=== PATIENT | female | born 1950 | race Caucasian/White ===

== ENCOUNTER 2016-10-12 12:30 | Outpatient (CLI) | payer MEDICARE, OTHER | END 2016-10-12 12:31 | disposition home or self-care (01) | DX: I48.91 Unspecified atrial fibrillation (principal); Z79.01 Long term (current) use of anticoagulants ==

== ENCOUNTER 2016-10-21 10:34 | Outpatient (CLI) | payer MEDICARE, OTHER | END 2016-10-21 10:35 | disposition home or self-care (01) | DX: I48.91 Unspecified atrial fibrillation (principal); Z79.01 Long term (current) use of anticoagulants ==

== ENCOUNTER 2016-10-29 08:57 | Outpatient (CLI) | payer MEDICARE, OTHER | END 2016-10-29 08:58 | disposition home or self-care (01) | DX: I48.91 Unspecified atrial fibrillation (principal); Z79.01 Long term (current) use of anticoagulants ==

== ENCOUNTER 2016-11-04 14:49 | Outpatient (CLI) | payer MEDICARE, OTHER | END 2016-11-04 14:50 | disposition home or self-care (01) | DX: I48.91 Unspecified atrial fibrillation (principal); Z79.01 Long term (current) use of anticoagulants ==

== ENCOUNTER 2016-12-02 10:37 | Outpatient (CLI) | payer MEDICARE, OTHER | END 2016-12-02 10:38 | disposition home or self-care (01) | DX: I48.91 Unspecified atrial fibrillation (principal); Z79.01 Long term (current) use of anticoagulants ==

== ENCOUNTER 2016-12-21 08:38 | Outpatient (CLI) | payer MEDICARE, OTHER | END 2016-12-21 08:39 | disposition home or self-care (01) | DX: E11.9 Type 2 diabetes mellitus without complications (principal); Z79.899 Other long term (current) drug therapy; E55.9 Vitamin D deficiency, unspecified ==

== ENCOUNTER 2016-12-30 13:17 | Outpatient (CLI) | payer MEDICARE, OTHER | END 2016-12-30 13:18 | disposition home or self-care (01) | DX: I48.91 Unspecified atrial fibrillation (principal); Z79.01 Long term (current) use of anticoagulants ==

== ENCOUNTER 2017-02-01 10:57 | Outpatient (CLI) | payer MEDICARE, OTHER | END 2017-02-01 10:58 | disposition home or self-care (01) | LOC: LAB 10:57 | PROVIDERS: ATTEND Internal Medicine | DX: I48.91 Unspecified atrial fibrillation (principal); Z79.01 Long term (current) use of anticoagulants | CPT/HCPCS: 85610 ==

== ENCOUNTER 2017-02-14 11:21 | Outpatient (CLI) | payer MEDICARE, OTHER | END 2017-02-14 11:22 | disposition home or self-care (01) | LOC: LAB 11:21 | PROVIDERS: ATTEND Internal Medicine | DX: I48.91 Unspecified atrial fibrillation (principal); Z79.01 Long term (current) use of anticoagulants | CPT/HCPCS: 85610 ==

== ENCOUNTER 2017-03-14 14:30 | Outpatient (CLI) | payer MEDICARE, OTHER | END 2017-03-14 14:31 | disposition home or self-care (01) | LOC: LAB 14:30 | PROVIDERS: ATTEND Internal Medicine | DX: I48.91 Unspecified atrial fibrillation (principal) | CPT/HCPCS: 85610 ==

== ENCOUNTER 2017-04-14 12:39 | Outpatient (CLI) | payer MEDICARE, OTHER | END 2017-04-14 12:40 | disposition home or self-care (01) | LOC: LAB 12:39 | PROVIDERS: ATTEND Internal Medicine | DX: I48.91 Unspecified atrial fibrillation (principal); Z79.01 Long term (current) use of anticoagulants | CPT/HCPCS: 85610 ==

== ENCOUNTER 2017-05-24 10:59 | Outpatient (CLI) | payer MEDICARE, OTHER | END 2017-05-24 11:00 | disposition home or self-care (01) | LOC: LAB 10:59 | PROVIDERS: ATTEND Internal Medicine | DX: I48.91 Unspecified atrial fibrillation (principal); Z79.01 Long term (current) use of anticoagulants | CPT/HCPCS: 85610 ==

== ENCOUNTER 2017-06-20 09:00 | Outpatient (CLI) | payer MEDICARE, OTHER ==
[2017-06-20 09:23] LABS: BASOPHILS # (AUTO) 0.1 10^3/uL (0.0-0.1); EOSINOPHILS # (AUTO) 0.2 10^3/uL (0.0-0.7); EOSINOPHILS % (AUTO) 2.5 %; HCT - HEMATOCRIT 42.9 % (37.0-47.0); LYMPHOCYTES # (AUTO) 2.7 10^3/uL (1.5-3.5); LYMPHOCYTES % (AUTO) 32.8 %; MEAN CORPUSCULAR HEMOGLOBIN 29.5 pg (27.0-31.0); MEAN CORPUSCULAR HGB CONC 32.6 g/dL (32.0-36.0); MEAN CORPUSCULAR VOLUME 90.6 fL (81.0-99.0); MEAN PLATELET VOLUME 8.7 fL (7.9-10.8); MONOCYTES # (AUTO) 0.7 10^3/uL (0.0-1.0); NEUTROPHILS # (AUTO) 4.5 10^3/uL (1.5-6.6); NEUTROPHILS % (AUTO) 54.7 %; RED BLOOD COUNT 4.73 10^6/uL (4.20-5.40); RED CELL DISTRIBUTION WIDTH 13.5 % (12.0-15.0); UNCORRECTED WHITE BLOOD COUNT 8.2 x10^3/uL; WHITE BLOOD COUNT 8.2 x10^3/uL (4.8-10.8)
[2017-06-20 09:32] LABS: INR 2.6 (0.8-1.2); PT - PROTHROMBIN TIME 29.1 secs (9.9-12.6)
[2017-06-20 09:39] LABS: HEMOGLOBIN A1C 0.91 g/dL
[2017-06-20 09:40] LABS: ALBUMIN/GLOBULIN RATIO 1.2 (1.0-2.2); BILIRUBIN,TOTAL 0.8 mg/dL (0.2-1.0); BUN - BLOOD UREA NITROGEN 19 mg/dL (6-20); CALCIUM 9.1 mg/dL (8.5-10.3); CARBON DIOXIDE - CO2 26 mmol/L (21-32); CHLORIDE 102 mmol/L (101-111); CHOL/HDL RATIO 2.3 (<4.4); CHOLESTEROL 154 mg/dL; CREATININE 0.7 mg/dL (0.4-1.0); GFR - MDRD 84 (>89); GLUCOSE 167 mg/dL (70-100); HDL CHOLESTEROL 67 mg/dL; LDL/HDL RATIO 1.1 (<4.4); POTASSIUM 4.3 mmol/L (3.5-5.0); SODIUM 138 mmol/L (135-145); TRIGLYCERIDES 81 mg/dL; VLDL CHOLESTEROL 16 mg/dL
== END 2017-06-20 09:01 | disposition home or self-care (01) ==
LOC: LAB 09:00
PROVIDERS: ATTEND Physician Assistant Medical
DX: I48.91 Unspecified atrial fibrillation (principal); E11.9 Type 2 diabetes mellitus without complications; I10 Essential (primary) hypertension; Z79.899 Other long term (current) drug therapy; Z79.01 Long term (current) use of anticoagulants
CPT/HCPCS: 36415; 80053; 80061; 83036; 84443; 85025; 85610

== ENCOUNTER 2017-10-20 10:16 | Outpatient (CLI) | payer MEDICARE, OTHER | END 2017-10-20 10:17 | disposition home or self-care (01) | LOC: LAB 10:16 | PROVIDERS: ATTEND Internal Medicine | DX: I48.91 Unspecified atrial fibrillation (principal); Z79.01 Long term (current) use of anticoagulants | CPT/HCPCS: 85610 ==

== ENCOUNTER 2017-12-19 10:49 | Outpatient (CLI) | payer MEDICARE, OTHER | END 2017-12-19 10:50 | disposition home or self-care (01) | LOC: LAB 10:49 | PROVIDERS: ATTEND Internal Medicine | DX: I48.91 Unspecified atrial fibrillation (principal); Z79.01 Long term (current) use of anticoagulants | CPT/HCPCS: 85610 ==

== ENCOUNTER 2018-01-18 12:18 | Outpatient (CLI) | payer MEDICARE, OTHER | END 2018-01-18 12:19 | disposition home or self-care (01) | LOC: LAB 12:18 | PROVIDERS: ATTEND Internal Medicine | DX: I48.91 Unspecified atrial fibrillation (principal); Z79.01 Long term (current) use of anticoagulants | CPT/HCPCS: 85610 ==

== ENCOUNTER 2018-02-02 14:32 | Outpatient (CLI) | payer MEDICARE, OTHER | END 2018-02-02 14:33 | disposition home or self-care (01) | LOC: LAB 14:32 | PROVIDERS: ATTEND Internal Medicine | DX: I48.91 Unspecified atrial fibrillation (principal); Z79.01 Long term (current) use of anticoagulants | CPT/HCPCS: 85610 ==

== ENCOUNTER 2018-03-01 08:54 | Outpatient (CLI) | payer MEDICARE, OTHER ==
[2018-03-01 09:22] LABS: INR 2.6 (0.8-1.2); PT - PROTHROMBIN TIME 28.5 secs (9.9-12.6)
[2018-03-01 09:38] LABS: HB2 TOTAL 15.5 g/dL; HEMOGLOBIN A1C 0.83 g/dL; HEMOGLOBIN A1C % 7.1 % (4.6-6.2)
== END 2018-03-01 08:55 | disposition home or self-care (01) ==
LOC: LAB 08:54
PROVIDERS: ATTEND Internal Medicine
DX: E11.9 Type 2 diabetes mellitus without complications (principal); I48.91 Unspecified atrial fibrillation; Z79.899 Other long term (current) drug therapy; Z79.01 Long term (current) use of anticoagulants
CPT/HCPCS: 36415; 82947; 83036; 85610

== ENCOUNTER 2018-04-03 10:03 | Outpatient (CLI) | payer MEDICARE, OTHER | END 2018-04-03 10:04 | disposition home or self-care (01) | LOC: LAB 10:03 | PROVIDERS: ATTEND Internal Medicine | DX: I48.91 Unspecified atrial fibrillation (principal); Z79.01 Long term (current) use of anticoagulants | CPT/HCPCS: 85610 ==

== ENCOUNTER 2018-04-11 09:07 | Outpatient (CLI) | payer MEDICARE, OTHER ==
--- NOTE | 2018-04-13 14:01 | Mammography Report ---
Procedure Date: 04/11/2018 Accession Number: [id number] / [id number] Procedure: MGN - Screening Mammo Dig Bilat CPT Code: FULL RESULT: EXAM: Screening Mammo Dig Bilat DATE: 04/11/2018 9:33 AM CLINICAL HISTORY: 67-year-old female with history of late childbearing. TECHNIQUE: Bilateral CC and MLO views were obtained. Left and right XCCL view was also obtained. COMPARISON: 03/22/2016, 02/19/2014, 02/23/2011, 08/06/2008. FINDINGS: The breasts demonstrate diffuse fatty replacement bilaterally. No suspicious masses, clustered microcalcifications, or regions of architectural distortion are identified. IMPRESSION: Negative examination RECOMMENDATION: Routine annual screening unless otherwise clinically indicated. BIRADS CATEGORY 1: Negative STANDARD QUALIFYING STATEMENTS: 1. This examination was reviewed with the aid of Computer-Aided Detection (CAD). 2. A negative or benign imaging report should not delay biopsy if clinically suspicious findings are present. Consider surgical consultation if warrented. More than 5% of cancers are not identified by imaging. 3. Dense breasts may obscure an underlying neoplasm.
== END 2018-04-11 09:08 | disposition home or self-care (01) ==
LOC: DI.N 09:07
PROVIDERS: ATTEND Physician Assistant Medical
DX: Z12.31 Encounter for screening mammogram for malignant neoplasm of breast (principal)
CPT/HCPCS: 77067

== ENCOUNTER 2018-05-04 10:18 | Outpatient (CLI) | payer MEDICARE, OTHER | END 2018-05-04 10:19 | disposition home or self-care (01) | LOC: LAB 10:18 | PROVIDERS: ATTEND Internal Medicine | DX: I48.91 Unspecified atrial fibrillation (principal); Z79.01 Long term (current) use of anticoagulants | CPT/HCPCS: 85610 ==

== ENCOUNTER 2018-05-29 11:57 | Outpatient (CLI) | payer MEDICARE, OTHER | END 2018-05-29 11:58 | disposition home or self-care (01) | LOC: LAB 11:57 | PROVIDERS: ATTEND Internal Medicine | DX: I48.91 Unspecified atrial fibrillation (principal); Z79.01 Long term (current) use of anticoagulants | CPT/HCPCS: 85610 ==

== ENCOUNTER 2018-06-20 09:23 | Outpatient (CLI) | payer MEDICARE, OTHER ==
[2018-06-20 09:55] LABS: BASOPHILS # (AUTO) 0.1 10^3/uL (0.0-0.1); BASOPHILS % (AUTO) 1.1 %; EOSINOPHILS # (AUTO) 0.2 10^3/uL (0.0-0.7); EOSINOPHILS % (AUTO) 2.9 %; HGB - HEMOGLOBIN 14.1 g/dL (12.0-16.0); LYMPHOCYTES # (AUTO) 1.9 10^3/uL (1.5-3.5); LYMPHOCYTES % (AUTO) 28.9 %; MEAN CORPUSCULAR HEMOGLOBIN 30.5 pg (27.0-31.0); MEAN CORPUSCULAR HGB CONC 33.5 g/dL (32.0-36.0); MEAN CORPUSCULAR VOLUME 91.1 fL (81.0-99.0); MEAN PLATELET VOLUME 8.7 fL (7.9-10.8); MONOCYTES # (AUTO) 0.7 10^3/uL (0.0-1.0); MONOCYTES % (AUTO) 9.7 %; NEUTROPHILS # (AUTO) 3.9 10^3/uL (1.5-6.6); NEUTROPHILS % (AUTO) 57.4 %; PLT - PLATELET COUNT 247 10^3/uL (130-450); RED BLOOD COUNT 4.64 10^6/uL (4.20-5.40); WHITE BLOOD COUNT 6.7 x10^3/uL (4.8-10.8)
[2018-06-20 11:38] LABS: HEMOGLOBIN A1C 0.82 g/dL; HEMOGLOBIN A1C % 7.2 % (4.6-6.2)
[2018-06-20 11:41] LABS: ALBUMIN 3.4 g/dL (3.2-5.5); ALKALINE PHOSPHATASE 61 IU/L (42-121); ALT ALANINE AMINOTRANSFERASE 23 IU/L (10-60); AST ASPARTATE AMINOTRANSFERASE 20 IU/L (10-42); BILIRUBIN,TOTAL 0.9 mg/dL (0.2-1.0); BUN - BLOOD UREA NITROGEN 15 mg/dL (6-20); CARBON DIOXIDE - CO2 28 mmol/L (21-32); CHLORIDE 102 mmol/L (101-111); CHOL/HDL RATIO 2.4 (<4.4); CHOLESTEROL 165 mg/dL; CREATININE 0.8 mg/dL (0.4-1.0); GFR - MDRD 72 (>89); GLUCOSE 171 mg/dL (70-100); HDL CHOLESTEROL 69 mg/dL; LDL CHOLESTEROL,CALCULATED 77 mg/dL; LDL/HDL RATIO 1.1 (<4.4); SODIUM 138 mmol/L (135-145); TOTAL PROTEIN 6.8 g/dL (6.7-8.2); VLDL CHOLESTEROL 19 mg/dL
== END 2018-06-20 09:24 | disposition home or self-care (01) ==
LOC: LAB 09:23
PROVIDERS: ATTEND Physician Assistant Medical
DX: I10 Essential (primary) hypertension (principal); E11.9 Type 2 diabetes mellitus without complications; I48.91 Unspecified atrial fibrillation; E66.3 Overweight; Z79.899 Other long term (current) drug therapy
CPT/HCPCS: 36415; 80053; 80061; 83036; 83721; 84443; 85025

== ENCOUNTER 2018-06-27 12:20 | Outpatient (CLI) | payer MEDICARE, OTHER | END 2018-06-27 12:21 | disposition home or self-care (01) | LOC: LAB 12:20 | PROVIDERS: ATTEND Internal Medicine | DX: I48.91 Unspecified atrial fibrillation (principal); Z79.01 Long term (current) use of anticoagulants | CPT/HCPCS: 85610 ==

== ENCOUNTER 2018-09-15 10:09 | Outpatient (CLI) | payer MEDICARE, OTHER ==
--- NOTE | 2018-09-18 11:20 | DEXA Report ---
Reason: POSTMENOPAUSAL Procedure Date: 09/15/2018 Accession Number: [id number] / [id number] Procedure: DEX - Dexa Spine and/or Hip CPT Code: FULL RESULT: EXAM: Dexa Spine and/or Hip DATE: 09/15/2018 10:42 AM CLINICAL HISTORY: POSTMENOPAUSAL TECHNIQUE: Dual energy x-ray absorptiometry (DXA) was performed on a Oculeve System. Regions measured are the AP Spine, femoral neck, and if needed forearm. COMPARISON: None. In accordance with the International Society for Clinical Densitometry (ISCD) guidelines, data from previous exams may be reanalyzed using current recommendations and techniques. This is done to allow a more accurate basis for comparison with the current study. FINDINGS: The data for the lumbar spine is as follows: BMD (g/cm/cm) T-SCORE Z-SCORE REGION L1 1.536 3.4 3.9 L2 1.616 3.5 3.9 L3 1.611 3.4 3.9 L4 1.609 3.4 3.9 TOTAL 1.594 3.5 3.9 NOTE: All evaluable vertebrae are used for classification The data for the hip is as follows: BMD (g/cm/cm) T-SCORE Z-SCORE REGION Neck 1.075 0.3 1.1 TOTAL 1.141 1.1 1.6 NOTE: The femoral neck or total proximal femur, whichever is lowest, is used for classification. IMPRESSION: THE WHO CLASSIFICATION BASED ON THE INTERNATIONAL REFERENCE STANDARD IS NORMAL. THE FRACTURE RISK IS NOT INCREASED. RECOMMENDATION: Patients with diagnosis of osteoporosis or osteopenia should have regular bone mineral density assessment. For those eligible for Medicare, routine testing is allowed once every 2 years. Testing frequency can be increased for patients who have rapidly progressing disease or for those who are receiving medical therapy to restore bone mass. COMMENT: World Health Organization (WHO) definitions for osteoporosis and osteopenia: NORMAL BMD: T-score at -1.0 or higher, fracture risk is low OSTEOPENIA BMD: T-score between -1.0 and -2.5, fracture risk is increased. OSTEOPOROSIS BMD: T-score at -2.5 or lower, fracture risk is high. National Osteoporosis Foundation recommends: 1. Obtain adequate dietary calcium (at least 1200 mg per day) and vitamin D (400-800 international units per day). 2. Participate, as appropriate, in regular weightbearing and muscle-strengthening exercise. 3. Avoid tobacco use and reduce alcohol and caffeine intake. 4. For more detailed information see the website at www.NOF.org.
== END 2018-09-15 10:10 | disposition home or self-care (01) ==
LOC: DI 10:09
PROVIDERS: ATTEND Physician Assistant Medical
DX: Z78.0 Asymptomatic menopausal state (principal)
CPT/HCPCS: 77080

== ENCOUNTER 2018-12-22 11:59 | Outpatient (CLI) | payer MEDICARE, OTHER | END 2018-12-22 12:00 | disposition home or self-care (01) | LOC: LAB 11:59 | PROVIDERS: ATTEND Family Medicine | DX: I48.91 Unspecified atrial fibrillation (principal) | CPT/HCPCS: 85610 ==

== ENCOUNTER 2019-01-23 10:05 | Outpatient (CLI) | payer MEDICARE, OTHER | END 2019-01-23 10:06 | disposition home or self-care (01) | LOC: LAB 10:05 | PROVIDERS: ATTEND Family Medicine | DX: I48.91 Unspecified atrial fibrillation (principal) | CPT/HCPCS: 85610 ==

== ENCOUNTER 2019-03-01 11:09 | Outpatient (CLI) | payer MEDICARE, OTHER | END 2019-03-01 11:10 | disposition home or self-care (01) | LOC: LAB 11:09 | PROVIDERS: ATTEND Family Medicine | DX: I48.91 Unspecified atrial fibrillation (principal) | CPT/HCPCS: 85610 ==

== ENCOUNTER 2019-03-12 12:17 | Outpatient (CLI) | payer MEDICARE, OTHER ==
[2019-03-12 13:05] LABS: HB2 TOTAL 15.1 g/dL; HEMOGLOBIN A1C 1.19 g/dL; HEMOGLOBIN A1C % 9.4 % (4.6-6.2)
[2019-03-12 13:11] LABS: CALCIUM 9.1 mg/dL (8.5-10.3); CREATININE 0.9 mg/dL (0.4-1.0)
== END 2019-03-12 12:18 | disposition home or self-care (01) ==
LOC: LAB 12:17
PROVIDERS: ATTEND Nurse Practitioner
DX: E11.9 Type 2 diabetes mellitus without complications (principal)
CPT/HCPCS: 80048; 83036

== ENCOUNTER 2019-04-03 11:31 | Outpatient (CLI) | payer MEDICARE, OTHER | END 2019-04-03 11:32 | disposition home or self-care (01) | LOC: LAB 11:31 | PROVIDERS: ATTEND Family Medicine | DX: I48.91 Unspecified atrial fibrillation (principal) | CPT/HCPCS: 85610 ==

== ENCOUNTER 2019-05-03 12:55 | Outpatient (CLI) | payer MEDICARE, OTHER | END 2019-05-03 12:56 | disposition home or self-care (01) | LOC: LAB 12:55 | PROVIDERS: ATTEND Family Medicine | DX: I48.91 Unspecified atrial fibrillation (principal) | CPT/HCPCS: 85610 ==

== ENCOUNTER 2019-05-29 12:03 | Outpatient (CLI) | payer MEDICARE, OTHER | END 2019-05-29 12:04 | disposition home or self-care (01) | LOC: LAB 12:03 | PROVIDERS: ATTEND Family Medicine | DX: I48.91 Unspecified atrial fibrillation (principal) | CPT/HCPCS: 85610 ==

== ENCOUNTER 2019-06-25 08:46 | Outpatient (CLI) | payer MEDICARE, OTHER ==
[2019-06-25 09:18] LABS: CALCIUM 9.1 mg/dL (8.5-10.3); CREATININE 0.8 mg/dL (0.4-1.0)
[2019-06-25 09:34] LABS: CREATININE,URINE 182.5 mg/dL; MICROALBUM/CREATININE RATIO,UR 44.4 ug/mg (<30.0); MICROALBUMIN,URINE 8.1 mg/dL (0-300.0)
[2019-06-25 09:39] LABS: HB2 TOTAL 15.8 g/dL; HEMOGLOBIN A1C % 7.9 % (4.6-6.2)
== END 2019-06-25 08:47 | disposition home or self-care (01) ==
LOC: LAB 08:46
PROVIDERS: ATTEND Nurse Practitioner
DX: E11.9 Type 2 diabetes mellitus without complications (principal); Z79.899 Other long term (current) drug therapy; I10 Essential (primary) hypertension; I48.91 Unspecified atrial fibrillation
CPT/HCPCS: 36415; 80048; 82043; 82570; 83036; 85610

== ENCOUNTER 2019-07-02 12:32 | Outpatient (CLI) | payer MEDICARE, OTHER | END 2019-07-02 12:33 | disposition home or self-care (01) | LOC: LAB 12:32 | PROVIDERS: ATTEND Family Medicine | DX: I48.91 Unspecified atrial fibrillation (principal) | CPT/HCPCS: 85610 ==

== ENCOUNTER 2020-02-21 08:02 | Outpatient (CLI) | payer MEDICARE, OTHER ==
[2020-02-21 08:32] LABS: BASOPHILS # (AUTO) 0.1 10^3/uL (0.0-0.1); BASOPHILS % (AUTO) 1.1 %; EOSINOPHILS # (AUTO) 0.2 10^3/uL (0.0-0.7); EOSINOPHILS % (AUTO) 2.6 %; HGB - HEMOGLOBIN 14.1 g/dL (12.0-16.0); LYMPHOCYTES # (AUTO) 2.4 10^3/uL (1.5-3.5); LYMPHOCYTES % (AUTO) 30.1 %; MEAN CORPUSCULAR HEMOGLOBIN 30.5 pg (27.0-31.0); MEAN CORPUSCULAR HGB CONC 32.4 g/dL (32.0-36.0); MEAN CORPUSCULAR VOLUME 94.2 fL (81.0-99.0); MEAN PLATELET VOLUME 10.9 fL (7.9-10.8); MONOCYTES # (AUTO) 0.8 10^3/uL (0.0-1.0); MONOCYTES % (AUTO) 10.5 %; NEUTROPHILS # (AUTO) 4.4 10^3/uL (1.5-6.6); NEUTROPHILS % (AUTO) 55.2 %; PLT - PLATELET COUNT 300 10^3/uL (130-450); RED BLOOD COUNT 4.62 10^6/uL (4.20-5.40)
[2020-02-21 08:40] LABS: CREATININE,URINE 151.6 mg/dL; MICROALBUM/CREATININE RATIO,UR 13.2 ug/mg (<30.0)
[2020-02-21 08:46] LABS: ALBUMIN 3.4 g/dL (3.2-5.5); ALKALINE PHOSPHATASE 53 IU/L (42-121); ALT ALANINE AMINOTRANSFERASE 19 IU/L (10-60); AST ASPARTATE AMINOTRANSFERASE 18 IU/L (10-42); BILIRUBIN,TOTAL 0.9 mg/dL (0.2-1.0); BUN - BLOOD UREA NITROGEN 22 mg/dL (6-20); CALCIUM 8.9 mg/dL (8.5-10.3); CARBON DIOXIDE - CO2 24 mmol/L (21-32); CHLORIDE 103 mmol/L (101-111); CHOL/HDL RATIO 2.6 (<4.4); CHOLESTEROL 167 mg/dL; CREATININE 0.8 mg/dL (0.4-1.0); GLUCOSE 189 mg/dL (70-100); HDL CHOLESTEROL 64 mg/dL; LDL CHOLESTEROL,CALCULATED 88 mg/dL; LDL/HDL RATIO 1.4 (<4.4); SODIUM 136 mmol/L (135-145); TOTAL PROTEIN 6.8 g/dL (6.7-8.2); VLDL CHOLESTEROL 15 mg/dL
[2020-02-21 08:47] LABS: HB2 TOTAL 15.3 g/dL; HEMOGLOBIN A1C 1.01 g/dL; HEMOGLOBIN A1C % 8.2 % (4.6-6.2)
== END 2020-02-21 08:03 | disposition home or self-care (01) ==
LOC: LAB 08:02
PROVIDERS: ATTEND Nurse Practitioner
DX: I48.91 Unspecified atrial fibrillation (principal); E11.9 Type 2 diabetes mellitus without complications; I10 Essential (primary) hypertension; Z78.0 Asymptomatic menopausal state
CPT/HCPCS: 36415; 80053; 80061; 82043; 82306; 82570; 83036; 83721; 84443; 85025; 85610

== ENCOUNTER 2020-03-25 10:47 | Outpatient (CLI) | payer MEDICARE, OTHER | END 2020-03-25 10:48 | disposition home or self-care (01) | LOC: LAB 10:47 | PROVIDERS: ATTEND Family Medicine | DX: I48.91 Unspecified atrial fibrillation (principal) | CPT/HCPCS: 85610 ==

== ENCOUNTER 2020-04-09 11:52 | Outpatient (CLI) | payer MEDICARE, OTHER | END 2020-04-09 11:53 | disposition home or self-care (01) | LOC: LAB 11:52 | PROVIDERS: ATTEND Family Medicine | DX: I48.91 Unspecified atrial fibrillation (principal) | CPT/HCPCS: 85610 ==

== ENCOUNTER 2020-05-16 13:09 | Outpatient (CLI) | payer MEDICARE, OTHER | END 2020-05-16 13:10 | disposition home or self-care (01) | LOC: LAB 13:09 | PROVIDERS: ATTEND Family Medicine | DX: I48.91 Unspecified atrial fibrillation (principal) | CPT/HCPCS: 85610 ==

== ENCOUNTER 2020-06-18 08:35 | Outpatient (CLI) | payer MEDICARE, OTHER ==
[2020-06-18 08:54] LABS: BASOPHILS # (AUTO) 0.1 10^3/uL (0.0-0.1); BASOPHILS % (AUTO) 1.1 %; EOSINOPHILS # (AUTO) 0.2 10^3/uL (0.0-0.7); EOSINOPHILS % (AUTO) 2.9 %; HGB - HEMOGLOBIN 13.9 g/dL (12.0-16.0); LYMPHOCYTES # (AUTO) 2.5 10^3/uL (1.5-3.5); LYMPHOCYTES % (AUTO) 32.8 %; MEAN CORPUSCULAR HEMOGLOBIN 30.4 pg (27.0-31.0); MEAN CORPUSCULAR HGB CONC 33.1 g/dL (32.0-36.0); MEAN CORPUSCULAR VOLUME 91.9 fL (81.0-99.0); MEAN PLATELET VOLUME 10.6 fL (7.9-10.8); MONOCYTES # (AUTO) 0.7 10^3/uL (0.0-1.0); MONOCYTES % (AUTO) 9.8 %; NEUTROPHILS % (AUTO) 52.9 %; PLT - PLATELET COUNT 238 10^3/uL (130-450); RED BLOOD COUNT 4.57 10^6/uL (4.20-5.40); RED CELL DISTRIBUTION WIDTH 13.6 % (12.0-15.0); WHITE BLOOD COUNT 7.5 x10^3/uL (4.8-10.8)
[2020-06-18 09:07] LABS: ALBUMIN 3.4 g/dL (3.2-5.5); ALBUMIN/GLOBULIN RATIO 1.1 (1.0-2.2); BILIRUBIN,TOTAL 0.6 mg/dL (0.2-1.0); CREATININE 0.6 mg/dL (0.4-1.0); TOTAL PROTEIN 6.6 g/dL (6.7-8.2)
[2020-06-18 13:04] LABS: HEMOGLOBIN A1c% 7.5 % (4.27-6.07)
== END 2020-06-18 08:36 | disposition home or self-care (01) ==
LOC: LAB 08:35
PROVIDERS: ATTEND Nurse Practitioner
DX: E11.9 Type 2 diabetes mellitus without complications (principal); I10 Essential (primary) hypertension; I48.91 Unspecified atrial fibrillation
CPT/HCPCS: 36415; 80053; 83036; 85025; 85610

== ENCOUNTER 2021-02-11 08:59 | Outpatient (CLI) | payer MEDICARE, OTHER | END 2021-02-11 09:00 | disposition home or self-care (01) | LOC: LAB 08:59 | PROVIDERS: ATTEND Family Medicine | DX: I48.91 Unspecified atrial fibrillation (principal) | CPT/HCPCS: 36416; 85610 ==

== ENCOUNTER 2021-02-18 08:31 | Outpatient (CLI) | payer MEDICARE, OTHER ==
[2021-02-18 12:28] LABS: BASOPHILS # (AUTO) 0.1 10^3/uL (0.0-0.1); BASOPHILS % (AUTO) 0.9 %; EOSINOPHILS # (AUTO) 0.2 10^3/uL (0.0-0.7); EOSINOPHILS % (AUTO) 2.3 %; HCT - HEMATOCRIT 43.4 % (37.0-47.0); HGB - HEMOGLOBIN 13.6 g/dL (12.0-16.0); LYMPHOCYTES # (AUTO) 2.5 10^3/uL (1.5-3.5); MEAN CORPUSCULAR HEMOGLOBIN 29.4 pg (27.0-31.0); MEAN CORPUSCULAR HGB CONC 31.3 g/dL (32.0-36.0); MEAN CORPUSCULAR VOLUME 93.9 fL (81.0-99.0); MEAN PLATELET VOLUME 11.6 fL (7.9-10.8); MONOCYTES # (AUTO) 0.9 10^3/uL (0.0-1.0); MONOCYTES % (AUTO) 10.2 %; NEUTROPHILS # (AUTO) 5.1 10^3/uL (1.5-6.6); NEUTROPHILS % (AUTO) 58.1 %; PLT - PLATELET COUNT 292 10^3/uL (130-450); RED BLOOD COUNT 4.62 10^6/uL (4.20-5.40); RED CELL DISTRIBUTION WIDTH 13.8 % (12.0-15.0); WHITE BLOOD COUNT 8.8 x10^3/uL (4.8-10.8)
[2021-02-18 12:33] LABS: BILIRUBIN,URINE NEGATIVE (NEGATIVE); GLUCOSE, URINE (UA) NEGATIVE (NEGATIVE); KETONES,URINE (UA) NEGATIVE (NEGATIVE); LEUKOCYTE ESTERASE, URINE NEGATIVE (NEGATIVE); NITRITE,URINE NEGATIVE (NEGATIVE); OCCULT BLOOD,URINE NEGATIVE (NEGATIVE); PH,URINE 5.5 PH (5.0-7.5); PROTEIN,URINE NEGATIVE (NEGATIVE); UROBILINOGEN,URINE 0.2 (NORMAL) E.U./dL (NORMAL)
[2021-02-18 12:37] LABS: CLARITY,URINE CLEAR (CLEAR)
[2021-02-18 12:42] LABS: ESTIMATED AVERAGE GLUCOSE 160 mg/dL (70-100); HEMOGLOBIN A1c% 7.2 % (4.27-6.07)
[2021-02-18 12:46] LABS: ALBUMIN 3.6 g/dL (3.2-5.5); ALBUMIN/GLOBULIN RATIO 1.1 (1.0-2.2); ALKALINE PHOSPHATASE 55 IU/L (42-121); ALT ALANINE AMINOTRANSFERASE 16 IU/L (10-60); AST ASPARTATE AMINOTRANSFERASE 13 IU/L (10-42); BILIRUBIN,TOTAL 0.8 mg/dL (0.2-1.0); BUN - BLOOD UREA NITROGEN 18 mg/dL (6-20); CALCIUM 9.2 mg/dL (8.5-10.3); CARBON DIOXIDE - CO2 26 mmol/L (21-32); CHLORIDE 100 mmol/L (101-111); CHOL/HDL RATIO 2.4 (<4.4); CHOLESTEROL 165 mg/dL; CREATININE 0.6 mg/dL (0.4-1.0); GFR - MDRD 99 (>89); GLUCOSE 186 mg/dL (70-100); HDL CHOLESTEROL 70 mg/dL; LDL CHOLESTEROL,CALCULATED 82 mg/dL; LDL/HDL RATIO 1.2 (<4.4); POTASSIUM 4.1 mmol/L (3.5-5.0); SODIUM 135 mmol/L (135-145); TOTAL PROTEIN 6.8 g/dL (6.7-8.2); TRIGLYCERIDES 66 mg/dL; URIC ACID 6.4 mg/dL (2.6-7.2); VLDL CHOLESTEROL 13 mg/dL
[2021-02-18 12:49] LABS: BACTERIA,URINE Rare /HPF (None Seen); RBC,URINE 0-5 /HPF (0-5); SQUAMOUS EPITHELIAL CELL,UR RARE Squamous (<= Few); WBC,URINE 0-3 /HPF (0-5)
== END 2021-02-18 08:32 | disposition home or self-care (01) ==
LOC: LAB.N 08:31
PROVIDERS: ATTEND Family Medicine
DX: E11.9 Type 2 diabetes mellitus without complications (principal); R10.9 Unspecified abdominal pain
CPT/HCPCS: 36415; 80053; 80061; 81001; 82607; 83036; 83721; 84550; 85025; 87086

== ENCOUNTER 2021-02-18 08:39 | Outpatient (CLI) | payer MEDICARE, OTHER ==
--- NOTE | 2021-02-18 15:14 | XRAY Report ---
PROCEDURE: Lumbar Spine 2 View INDICATIONS: ACUTE LOW BACK PX TECHNIQUE: 2 views of the lumbar spine were acquired. COMPARISON: None. FINDINGS: Bones: 5 [id number] vertebrae are present. There is minimal leftward curvature with apex at at L3. There is trace retrolisthesis of L3 on L4, L5 on S1 as well as trace anterolisthesis of L4 on L 5. Severe foraminal narrowing is noted at L5-S1, mild to moderate L3-4, L4-5. Multilevel moderate to severe disc space narrowing is present most notable at L5-S1. Ultimately level anterior osteophytes a re present as prominent at L1. No vertebral body compression fractures. No suspicious bony lesions. Soft tissues: Overlying bowel gas pattern is normal. No suspicious soft tissue calcifications. IMPRESSION: Multilevel degenerative changes with foraminal narrowing most notable at L5-S1. If there is further evaluation required of potential nerve root compression secondary to foraminal narrowing, MRI is recommended. Reviewed by: Rosario Brown MD on 02/18/2021 3:13 PM PDT Approved by: Rosario Brown MD on 02/18/2021 3:13 PM PDT Station ID: [id number]
== END 2021-02-18 08:40 | disposition home or self-care (01) ==
LOC: DI.N 08:39
PROVIDERS: ATTEND Family Medicine
DX: M43.16 Spondylolisthesis, lumbar region (principal); M43.17 Spondylolisthesis, lumbosacral region; M51.36 Other intervertebral disc degeneration, lumbar region; M48.061 Spinal stenosis, lumbar region without neurogenic claudication; M51.37 Other intervertebral disc degeneration, lumbosacral region; M48.07 Spinal stenosis, lumbosacral region; E11.9 Type 2 diabetes mellitus without complications; R10.9 Unspecified abdominal pain
CPT/HCPCS: 36415; 80053; 80061; 81001; 82607; 83036; 83721; 84550; 85025; 87086

== ENCOUNTER 2021-03-12 08:00 | Outpatient (CLI) | payer MEDICARE, OTHER ==
[2021-03-12 13:24] LABS: INR 3.1 (0.8-1.2); PT - PROTHROMBIN TIME 32.5 secs (9.9-12.6)
== END 2021-03-12 23:59 | disposition home or self-care (01) ==
LOC: LAB.WCP 08:00
PROVIDERS: ATTEND Family Medicine
DX: I48.91 Unspecified atrial fibrillation (principal)
CPT/HCPCS: 36415; 85610

== ENCOUNTER 2021-03-17 13:37 | Outpatient (CLI) | payer MEDICARE, OTHER ==
[2021-03-17] MEDS ORDERED: IOVERSOL 320 50 ML VIAL ONE (13:52)
[2021-03-17] MEDS ORDERED: IOVERSOL 320 100 ML VIAL IVP ONE ×2 (13:52→15:17)
[2021-03-17 14:27] LABS: CREATININE 0.8 mg/dL (0.4-1.0)
[2021-03-17] MEDS ORDERED: IOVERSOL 320 50 ML VIAL PO ONE (15:17)
--- NOTE | 2021-03-17 16:14 | CT Report ---
PROCEDURE: Abdomen/Pelvis W INDICATIONS: LEFT LOWER QUAD ABD PAIN CONTRAST: IV CONTRAST: Optiray 320 ml: 100 PO CONTRAST: Optiray 320 ml50 TECHNIQUE: After the administration of intravenous and oral contrast, 5 mm thick sections acquired from the diap hragms to the symphysis. 5 mm thick coronal and sagittal reformats were acquired. For radiation dos e reduction, the following was used: automated exposure control, adjustment of mA and/or kV accordin g to patient size. COMPARISON: None. FINDINGS: Image quality: Excellent. ABDOMEN: Lung bases: Lung bases are clear. Heart size is enlarged. Solid organs: There is a lobulated hypoattenuating mass lesion inferiorly within the left hepatic lo be measuring up to 3.2 x 3.2 x 2.8 cm on series 3 image 28 and series 6 image 16. There is suggestion of peripheral enhancement. The gallbladder is surgically absent. Biliary system is non dilated. No adrenal nodules. Kidneys demonstrate no hydronephrosis. There are bilateral parapelvic renal cysts. There is an oval cystic mass lesion at the junction of the pancreatic body and tail measuring up to 3 .7 x 2.9 x 3.3 cm. There is an adjacent lobulated cystic lesion within the pancreatic tail which may represent tortuous dilatation of the pancreatic duct. There is also a lobulated cystic lesion within the pancreatic body measuring up to approximately 3.0 x 2.2 cm in transverse dimension. A few additio nal scattered small cysts are demonstrated within the pancreatic head and uncinate process, with the largest demonstrated medially in the uncinate process measuring up to 1.9 x 1.6 x 1.1 cm. No pancreat ic duct dilatation within the pancreatic head, uncinate process, or body. Peritoneum and bowel: Bowel loops demonstrate normal wall thickness and caliber. There is colonic di verticulosis without acute diverticulitis. No free fluid or air. Nodes and vessels: No retroperitoneal or mesenteric adenopathy by size criteria. Aorta and inferior vena cava are normal in size. Miscellaneous: There is a small fat-containing umbilical hernia. PELVIS: Genitourinary: Bladder wall thickness is normal. There is a cystic lesion in the right adnexa measur ing approximately 4.6 x 3.2 x 4.1 cm. Miscellaneous: No inguinal hernias or adenopathy. Bones: No suspicious bony lesions. No vertebral body compression fractures. IMPRESSION: 1. Multiple cystic mass lesions demonstrated within the pancreas, with the largest measuring up to 3. 7 cm. There is also associated pancreatic duct dilatation in the pancreatic tail. The findings likely represent a cystic neoplasm such as an IPMN, mucinous cystic neoplasm, or a cystic neuroendocrine tu mor. Further characterization is recommended with a pancreatic protocol MRI. 2. Peripherally enhancing cystic lesion within the left hepatic lobe is suspicious for metastatic dis ease. This may also be further characterized on the MRI. Findings discussed Dr. Hinojosa on 03/17/2021 at 4:10 PM. 3. Cystic lesion in the right adnexa. The finding is nonspecific given patient's age but in the ale xt of the pancreatic mass, a drop metastasis cannot be excluded. Further catheterisation may be obtai shirley with a pelvic ultrasound if clinically indicated. No evidence of ascites. Reviewed by: Ld Brice MD on 03/17/2021 4:13 PM PDT Approved by: Ld Brice MD on 03/17/2021 4:13 PM PDT Station ID: [id number]
== END 2021-03-17 13:38 | disposition home or self-care (01) ==
LOC: DI 13:37
PROVIDERS: ATTEND Family Medicine
DX: R10.32 Left lower quadrant pain (principal); K86.89 Other specified diseases of pancreas; K76.9 Liver disease, unspecified
CPT/HCPCS: 36415; 74177; 82565; Q9967

== ENCOUNTER 2021-03-18 15:41 | Outpatient (CLI) | payer MEDICARE, OTHER ==
[2021-03-18] MEDS ORDERED: GADOBUTROL 15 MMOL/15 ML VIAL ONE (16:28)
[2021-03-18] MEDS: GADOBUTROL 15 MMOL/15 ML VIAL IVP ONE (17:39)
--- NOTE | 2021-03-18 19:45 | MRI Report ---
PROCEDURE: Abdomen W/WO INDICATIONS: MASS PANCREAS, LIVER MASS CONTRAST: IV CONTRAST: Gadavist ml: 11 TECHNIQUE: Coronal ultra fast SE, axial 2D spoiled GE in- and [id number]; axial breath-hold T2 fast SE. Dynam ic axial ultra fast GE during the administration of contrast; post-contrast coronal ultra fast GE or 2D spoiled GE with fat saturation from the hepatic dome to the iliac crests. Optional diffusion weig hted imaging and ADC may be performed. COMPARISON: CT abdomen pelvis 03/17/2021. FINDINGS: Image quality: Evaluation markedly limited by motion artifact including phase encoded motion artifac t. Lung bases: No basal pleural effusions. Heart size is enlarged. Solid organs: Multiple thin-walled cystic lesions are redemonstrated within the pancreas, with the l argest in the pancreatic body measuring up to approximately 3.7 x 2.8 x 3.1 cm on coronal series 601 image 11 and axial series 1201 image 57. Numerous additional smaller cysts are demonstrated throughou t the pancreas. A healthcare representative septated cystic lesion within the uncinate process measures up to 2. 0 x 1.7 x 1.7 cm (601/10) . A healthcare representative septated cystic lesion more proximally within the pancre atic body measures up to 2.3 x 1.8 x 1.6 cm (601/7). Ill-defined septated curvilinear cystic lesions are also demonstrated within the pancreatic tail. Following contrast administration, no discrete swapna d nodular internal enhancement demonstrated within the cysts. No dilatation of the main pancreatic du ct in the pancreatic head, uncinate process, or body. A component of pancreatic duct dilatation in th e pancreatic tail cannot be excluded given limited visualization. No adjacent solid organ invasion. N o peripancreatic edema. There is a lobulated T2 hyperintense mass lesion inferiorly within segment 3 of the left hepatic lobe measuring up to approximately 3.2 x 2.7 cm (501/20). This demonstrates mild peripheral enhancement f ollowing contrast administration. The gallbladder is surgically absent. No biliary ductal dilatation. Spleen is normal in size. No adre nal nodules. Kidneys demonstrate no hydronephrosis. Multiple bilateral parapelvic renal cysts are dem onstrated. Nodes and vessels: No retroperitoneal or mesenteric adenopathy by size criteria. Aorta and inferior vena cava are normal in size. Bowel and peritoneum: Visualized bowel loops are normal in caliber. No free fluid. Bones and soft tissues: No ventral hernias. Bone marrow is normal in overall signal. IMPRESSION: 1. Multiple thin-walled cystic lesions redemonstrated throughout the pancreas as described without di screte solid nodular enhancing components. The findings again likely represent a cystic pancreatic ne oplasm such as side branch IPMNs. Mucinous cystic neoplasms are also in the differential, but the dis tribution is atypical. Given the absence of solid components or thick ruiz, cystic neuroendocrine t umors are less likely. Recommend surgical consultation. 2. Peripherally enhancing mass anteriorly in the left hepatic lobe. Evaluation is limited on the curr ent study due to motion and suboptimal contrast timing, but the finding is suspicious for a neoplasm such as metastatic disease. Consider further evaluation with a dedicated abdominal ultrasound for pos sible percutaneous histologic sampling. Reviewed by: Ld Brice MD on 03/18/2021 7:44 PM PDT Approved by: Ld Brice MD on 03/18/2021 7:44 PM PDT Station ID: [id number]
== END 2021-03-18 15:42 | disposition home or self-care (01) ==
LOC: DI 15:41
PROVIDERS: ATTEND Family Medicine
DX: K86.89 Other specified diseases of pancreas (principal); K76.89 Other specified diseases of liver
CPT/HCPCS: 74183; A9585

== ENCOUNTER 2021-04-03 11:01 | Outpatient (CLI) | payer MEDICARE, OTHER | END 2021-04-03 11:02 | disposition home or self-care (01) | LOC: LAB 11:01 | PROVIDERS: ATTEND Family Medicine | DX: I48.91 Unspecified atrial fibrillation (principal) | CPT/HCPCS: 36416; 85610 ==

== ENCOUNTER 2021-04-16 16:59 | Outpatient (CLI) | payer MEDICARE, OTHER | END 2021-04-16 17:00 | disposition home or self-care (01) | LOC: COV 16:59 | PROVIDERS: ATTEND Student in an Organized Health Care Education/Training Program | DX: Z01.812 Encounter for preprocedural laboratory examination (principal); Z20.822 Contact with and (suspected) exposure to COVID-19 ==

== ENCOUNTER 2021-04-23 09:38 | Outpatient (CLI) | payer MEDICARE, OTHER | END 2021-04-23 09:39 | disposition home or self-care (01) | LOC: LAB 09:38 | PROVIDERS: ATTEND Family Medicine | DX: I48.91 Unspecified atrial fibrillation (principal) | CPT/HCPCS: 36416; 85610 ==

== ENCOUNTER 2021-05-04 11:00 | Outpatient (CLI) | payer MEDICARE, OTHER ==
--- NOTE | 2021-05-05 07:07 | CONSULTATION NOTE ---
Palliative Care Consultation - Referral Referring Provider: Dr. Mohinder Styles Time of Visit: 11:00 75 minutes Tuesday04/24/21 Referral setting: [facility] [place] Referral Reason: Pain of neoplastic origin/Constipation/Pancreatic CA - Information Sources Records reviewed: Previous records reviewed History/Review of Systems obtained from: Patient, Family ( Arnav) Exam limitations: No limitations - History of Present Illness Brief History of Present Illness: This is a angel 70-year-old woman who has had a complicated last couple months, related to worsening abdominal pain of several months duration. She underwent a CT of the abdomen and pelvis on 03/17/2021 which revealed multiple cystic lesions in the pancreas with the largest up to 3.7 cm, confirmed by an MRI on 03/18/2021. She was referred to a crawler dragline operator with biopsy of the pancreatic lesion on 04/20/2021 with pathology confirmed of invasive adenocarcinoma. This was noted to be well to moderate differentiated, unfortunately she is still pending a liver biopsy for completion of staging, this is scheduled for this Tuesday. Her tumor marker [id number],. She is anxious to get started on treatment, but this is still pending her liver biopsy given this would guide treatment. Of note they also found a right adnexal cystic lesion, this is pending work-up given the final findings of her work-up for her pancreatic cancer. This has been a frustrating journey for them, in the context of getting appropriate appointments for staging, biopsies, and work-up. They are pending a second opinion with MAR[facility] rivera. They have done their own research on the web, and do recognize the seriousness of her diagnosis, and are feeling somewhat overwhelmed. The other persistent issue has been her pain. Her pain is mid to left upper quadrant, exacerbated by eating radiates through the back. Also with some persistent pain in the background, in her upper back area, she is to be started on Creon, she is receiving is 05/07. Patient did have diarrhea and bloating, though this improved somewhat with the discontinue of Metformin, she is having some belching and mild gas, unclear if this is going to be a benefit, but certainly worth trying at this point. Patient was prescribed oxycodone 5 mg by her primary care provider she has been using this sparingly, 5 mg up to 2 times a day, supplemented with acetaminophen and CBD which they have found difficult dosing. Her pain certainly also may be neuropathic in nature, given the location and radiation, and consult with oncology had discussed celiac block, but will await to see if patient responds to treatment with improved pain. She is also experiencing appropriately anxiety, persistent fatigue, and constipation.Palliative care visit to establish rapport, counseling regarding disease, symptom management, and the role of palliative care in the context of a team approach Medical/Surgical History - Past Medical History Cardiovascular: reports: Hypertension, High cholesterol, Atrial fibrillation (longterm on coumadin) Respiratory: reports: None Neuro: Peripheral neuropathy (baseline from diabetes) Endocrine/Autoimmune: reports: Type 2 diabetes SYSTEMS INTEGRATOR: reports: None HEENT: reports: Chronic vision loss MRSA Hx?: No - Past Surgical History General: reports: Cholecystectomy, Other (EUS upper 04/25) HEENT: reports: Cataracts, Tonsil/Adenoidectomy Derm: reports: Skin cancer surgery - Substance History Use: Uses substance without health or social issues: Alcohol (twice a week) Social History - Living Situation Living arrangement: At home Living Situation: With spouse/s.o. Support System: She is here with her , who is engaged in her treatment and quite supportive. They have been since 1977, have been on [facility] since 2011. They came from [place]. They do have 1 daughter Zainab in [place]. 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 Family History - Family History Family History: Mother: , Alzheimer's Disease ( at 86), Father: , CAD ( 86), Sister: Alive and Well (has 4 sisters; ) Medications/Allergies - Medications Home Medications: Ambulatory Orders Medication Instructions Recorded Confirmed Warfarin Sodium [Coumadin] 2 - 4 mg PO DAILY MDD HOLD for 05/21/13 05/05/21 procedure lisinopriL [Lisinopril] 30 mg PO QPM 05/21/13 05/05/21 Acebutolol HCl 200 mg PO BID 03/30/19 05/05/21 Parsons 340 mg PO DAILY 03/30/19 05/05/21 Chromium Picolinate 200 mcg PO DAILY 03/30/19 05/05/21 Cyanocobalamin (Vitamin B-12) 1,000 mcg PO DAILY 03/30/19 05/05/21 [Vitamin B-12] Folic Acid 1 tab PO DAILY 03/30/19 05/05/21 Glucos Sul 2Kcl/MSM/Chond/C/Mn 1 each PO DAILY 03/30/19 05/05/21 [Glucosamine Chondroitin Cap] L.acid/L.casei/B.bif/B.elbert/Fos 1 each PO DAILY 03/30/19 05/05/21 [Probiotic Blend Capsule] Mangosteen 500 mg PO DAILY 03/30/19 05/05/21 Insulin Glargine [Lantus Solostar] 26 units SUBQ DAILY 05/08/20 05/05/21 Lipase/Protease/Amylase [Creon Dr 1 - 3 cap PO TID MDD with 05/05/21 05/05/21 24,000 Units Capsule] meals/snacks Senna [Senokot] 1 - 2 tab PO DAILY PRN MDD 6-9 05/05/21 05/05/21 oxyCODONE [Roxicodone] 5 mg PO QID MDD 6-8 tabs ATC 05/05/21 05/05/21 polyethylene glycoL 3350 [Miralax] 17 gm PO DAILY PRN MDD bid 05/05/21 05/05/21 - Allergies Allergies/Adverse Reactions: Allergies Allergy/AdvReac Type Severity Reaction Status Date / Time eye dilation drops Allergy Unknown Uncoded 03/30/19 15:54 Review of Systems - Constitutional Constitutional: reports: Fatigue, Poor appetite, Weight loss (20 pounds over last 2 months). denies: Fever, Chills - Eyes Eyes: reports: Vision loss, Corrective lenses - Cardiovascular Cardiovascular: reports: Irregular heart rate, Decr. exercise tolerance. denies: Chest pain - Respiratory Respiratory: reports: SOB with exertion. denies: SOB at rest - Gastrointestinal Gastrointestinal: reports: Abdominal pain, Constipation, Bloating, Poor appetite, Early satiety, Other (belching) - Musculoskeletal Musculoskeletal: reports: Back pain, Muscle weakness, Assistive devices (uses cane) - Neurological Neurological: reports: Numbness (peripheral neuropathy attributed to diabetes) - Endocrine Endocrine: reports: Diabetes type 2 - Hematologic/Lymphatic Hematologic/Lymph: denies: Recurrent infections - All Other Systems All Other Systems: reports: Reviewed and negative Physical Exam - Vital Signs Pulse Rate: 62 Respiratory Rate: 18 Blood Pressure: 118/69 - Physical Exam General Appearance: positive: No acute distress, Alert, Anxious Eyes Bilateral: positive: Normal inspection ENT: positive: No signs of dehydration Neck: positive: Trachea midline Cardiovascular: positive: Irregularly irregular Respiratory: positive: No respiratory distress, Breath sounds nml Abdomen: positive: Non-tender, Soft, Obese Skin: positive: Dryness Extremities: positive: Nml appearance, No pedal edema Neurologic/Psychiatric: positive: Mood/affect nml, Weakness Palliative Care - POLST Patient has POLST: No Pain: Pain worsening, Severity (7/10 with eating), Comment (see HPI) Tiredness/Fatigue: Mild (1-3), Severe (7-10) Drowsiness/Sedation: Mild (1-3) Nausea: Mild (1-3) Anorexia: Mild (1-3) Dyspnea: Mild (1-3) Depression: Mild (1-3) Anxiety: Mild (1-3) Constipation: Yes, Opoid induced, Intermittent constipation Performance Status: Patient's activity tolerance is impacted both by her fatigue and by her pain. She is much more sedentary than her baseline. She is able to manage her ADLs. She is ambulatory with a cane attributed to her neuropathy. - Palliative Care Discussion: Both and patient her appropriately feeling overwhelmed, he has been very slow getting information and getting to treatment with still yet a few hoops to jump through. We do understand the seriousness of the diagnosis from looking online, are hoping to get more concrete prognosis and plans in the next week. Palliative care to extend which report acknowledged the difficulty of their current situation, reviewed the role for helping support them as a "learn a new language", as well as to focus on quality of life issues. Will await further exploration of advance care planning, when treatment plan and staging complete Results - Lab Results Lab results reviewed: Yes Impression and Recommendations - Palliative Care Impression: This is a angel 70-year-old woman with invasive adenocarcinoma of the pancreas, with left liver lesion and elevated CA 199. She is currently completing her staging process, and treatment plan dependent on this. She presents with pain of neoplastic origin, with poorly controlled pain. Palliative care to provide support for pain and symptom management, psychosocial support and anticipatory guidance Recommendations/Counseling Done: 1. Pain of neoplastic origin. Patient is undermedicated, would like to put her on long-acting opioid but is opioid farzad. We will have her start with [id number] oxycodone 5 mg 4 times daily, encouraged to take 1-2 tabs for better relief. Will call on , if tolerating and pain improved, will transition to morphine 15 mg twice daily. 2. Constipation opioid induced. Counseling provided regarding bowel program with MiraLAX 17 g daily and senna 8.6 mg 1-2 tabs in the evening. Educated on titration of "mush" and "push" for goal of daily soft BM. 3. Abdominal pain. This is multifactorial, descriptive of celiac plexus Invasion or pressure, will escalate opioids and if not effective look at celiac plexus block possibly. Will await treatment for cancer to see if this improves as well. Patient also with belching though no diarrhea or "floating stools". Will trial Creon, ordered by her PCP. She has not received this yet, unclear if this will be effective but would like to trial. 4. Weight loss. This is multifactorial, patient with pain with eating. She has lost over 20 pounds over the last couple months, discussed the need for proper nutrition with treatment. Encouraged to graze every 2-3 hours that she does have early satiety, and consider using a supplement, encouraged to trial some different ones as well as consider making smoothies. Patient verbalized understanding. Will make a referral to dietitian as well. 5. Pancreatic cancer. This is still receiving a work-up, call to radiology regarding pending liver biopsy, no Covid test needed for procedure. Patient's Coumadin currently on hold. Patient has pending appointment for port placement. General counseling provided regarding cancer treatment and addressed questions as able given her limitations of not knowing treatment plan yet. 6. Advanced care planning. Patient does understand the seriousness of her illness, she does well with information for coping. They are planners and organized. Would like further information, agreed will await until have final treatment plans, to define goals. Short-term goals are to address pain, constipation, and finish staging. 75 minutes review of chart, labs, scans, oncology notes, [id number] with patient and with counseling regarding pain and symptom management, role of palliative care, setting of rapport, and anticipatory guidance.
== END 2021-05-04 11:01 | disposition home or self-care (01) ==
LOC: PC 11:00
PROVIDERS: ATTEND Nurse Practitioner Adult Health
DX: Z51.5 Encounter for palliative care (principal); G89.3 Neoplasm related pain (acute) (chronic); K59.03 Drug induced constipation; T40.2X5A Adverse effect of other opioids, initial encounter; R14.2 Eructation; R68.81 Early satiety; R63.4 Abnormal weight loss; R53.83 Other fatigue; E11.42 Type 2 diabetes mellitus with diabetic polyneuropathy; C25.9 Malignant neoplasm of pancreas, unspecified; R93.2 Abnormal findings on diagnostic imaging of liver and biliary tract; N83.8 Other noninflammatory disorders of ovary, fallopian tube and broad ligament; I48.91 Unspecified atrial fibrillation; Z79.899 Other long term (current) drug therapy; Z79.4 Long term (current) use of insulin; Z79.891 Long term (current) use of opiate analgesic; Z79.01 Long term (current) use of anticoagulants
CPT/HCPCS: 99205

== ENCOUNTER 2021-05-08 07:49 | Outpatient (CLI) | payer MEDICARE, OTHER ==
--- NOTE | 2021-05-04 15:13 | CONSULTATION NOTE ---
Medical/Surgical History - Past Medical History Cardiovascular: reports: Hypertension, High cholesterol, Atrial fibrillation Endocrine/Autoimmune: reports: Type 2 diabetes MRSA Hx?: No - Past Surgical History General: reports: Cholecystectomy HEENT: reports: Cataracts, Tonsil/Adenoidectomy Medications/Allergies - Medications Home Medications: Ambulatory Orders Medication Instructions Recorded Confirmed Warfarin Sodium [Coumadin] 2 - 4 mg PO DAILY 05/21/13 04/27/21 lisinopriL [Lisinopril] 30 mg PO QPM 05/21/13 04/27/21 Acebutolol HCl 200 mg PO BID 03/30/19 04/27/21 Parsons 340 mg PO DAILY 03/30/19 04/27/21 Chromium Picolinate 200 mcg PO DAILY 03/30/19 04/27/21 Cyanocobalamin (Vitamin B-12) 1,000 mcg PO DAILY 03/30/19 04/27/21 [Vitamin B-12] Folic Acid 1 tab PO DAILY 03/30/19 04/27/21 Glucos Sul 2Kcl/MSM/Chond/C/Mn 1 each PO DAILY 03/30/19 04/27/21 [Glucosamine Chondroitin Cap] L.acid/L.casei/B.bif/B.elbert/Fos 1 each PO DAILY 03/30/19 04/27/21 [Probiotic Blend Capsule] Mangosteen 500 mg PO DAILY 03/30/19 04/27/21 Metformin HCl [Metformin HCl ER] 750 mg PO BID 03/30/19 04/27/21 Insulin Glargine [Lantus Solostar] 26 units SUBQ DAILY 05/08/20 04/27/21 - Allergies Allergies/Adverse Reactions: Allergies Allergy/AdvReac Type Severity Reaction Status Date / Time eye dilation drops Allergy Unknown Uncoded 03/30/19 15:54
[2021-05-08] MEDS ORDERED: LACTATED RINGERS 1,000 ML IV ONE ×2 (08:14→09:53)
[2021-05-08 08:28] LABS: BASOPHILS # (AUTO) 0.1 10^3/uL (0.0-0.1); BASOPHILS % (AUTO) 0.9 %; EOSINOPHILS # (AUTO) 0.2 10^3/uL (0.0-0.7); EOSINOPHILS % (AUTO) 1.7 %; HCT - HEMATOCRIT 46.5 % (37.0-47.0); HGB - HEMOGLOBIN 14.8 g/dL (12.0-16.0); LYMPHOCYTES % (AUTO) 22.5 %; MEAN CORPUSCULAR HEMOGLOBIN 29.5 pg (27.0-31.0); MEAN CORPUSCULAR HGB CONC 31.8 g/dL (32.0-36.0); MEAN CORPUSCULAR VOLUME 92.8 fL (81.0-99.0); MEAN PLATELET VOLUME 10.6 fL (7.9-10.8); MONOCYTES % (AUTO) 10.8 %; NEUTROPHILS # (AUTO) 5.7 10^3/uL (1.5-6.6); NEUTROPHILS % (AUTO) 63.7 %; PLT - PLATELET COUNT 307 10^3/uL (130-450); RED BLOOD COUNT 5.01 10^6/uL (4.20-5.40); RED CELL DISTRIBUTION WIDTH 14.1 % (12.0-15.0)
[2021-05-08 08:38] LABS: CREATININE 0.8 mg/dL (0.4-1.0); INR 1.2 (0.8-1.2); PT - PROTHROMBIN TIME 13.3 secs (9.9-12.6)
[2021-05-08] MEDS ORDERED: IOPAMIDOL-300 100 ML VIAL ONE (08:43)
[2021-05-08] MEDS ORDERED: BUFFERED LIDOCAINE 10 ML SYRINGE ONE (08:52)
[2021-05-08] MEDS ORDERED: MIDAZOLAM 2 MG/2 ML VIAL ONE (08:57)
[2021-05-08] MEDS ORDERED: HYDROmorphone 1 MG/ML CARPUJECT ONE (10:03)
[2021-05-08] MEDS ORDERED: ONDANSETRON 4 MG/2 ML VIAL ONE (10:03)
[2021-05-08] MEDS: fentaNYL 100 MCG/2 ML VIAL ONE ×4 (10:05→11:34)
[2021-05-08] MEDS ORDERED: oxyCODONE 5 MG TABLET ONE (12:20)
[2021-05-08] MEDS ORDERED: IOPAMIDOL-300 50 ML VIAL IVP ONE (13:23)
[2021-05-08 13:52] VITALS: BP 144/10
--- NOTE | 2021-05-08 15:35 | CT Report ---
PROCEDURE: LIVER BX PERC Sedation analgesia for 30 minutes. INDICATIONS: PANCREATIC CANCER TECHNIQUE: The indications, alternatives, benefits, risks, and possible complications of the procedure were comm unicated to the patient. Informed written consent from the patient was obtained and placed in the art. Continuous EKG and hemodynamic monitoring was started by trained personnel. For radiation dose reduction, the following was used: automated exposure control, adjustment of mA and/or kV according to patient size. The patient was brought to the CT suite and garment supervisor spiral CT imaging was performed with localization g rid. The appropriate site for percutaneous access to the biopsy target was marked, was prepped and d raped sterilely, and was infused with local anaesthesia. Under CT guidance, a core biopsy trocar and needle set was advanced to the biopsy target, and specimen(s) were obtained. The trocar and needle were then removed, and the patient was sent for post-procedure monitoring. COMPARISON: MR abdomen 03/18/2021 FINDINGS: Biopsy site: Left hepatic lobe Needle: 18 gauge biopsy needle with introducer trocar. Number of passes: 3 Medications: 1% lidocaine for local anaesthesia. IV Fentanyl and Versed for conscious sedation for 30 minutes (see nursing record). Complications: None. IMPRESSION: Successful CT-guided biopsy of left hepatic lobe lesion. Reviewed by: Rosario Brown MD on 05/08/2021 3:34 PM PDT Approved by: Rosario Brown MD on 05/08/2021 3:34 PM PDT Station ID: [id number]
--- NOTE | 2021-05-08 16:41 | CT Report ---
PROCEDURE: CHEST W INDICATIONS: PANCREATIC CANCER CONTRAST: IV CONTRAST: Isovue 300 ml: 100 PO CONTRAST: *NO PO CONTRAST TECHNIQUE: After the administration of intravenous contrast, images were acquired from the pulmonary apices to t he posterior costophrenic angles. Multiplanar MIP reformats were acquired. For radiation dose reduc tion, the following was used: automated exposure control, adjustment of mA and/or kV according to pa tient size. COMPARISON: None. FINDINGS: Image quality: Excellent. Lungs and pleura: No pulmonary nodule. Lingular scars and atelectasis. No acute air space opacities. No pleural effusions or pneumothorax. Central and peripheral airways are patent and normal in leonora ramila. Mediastinum: Heart size is normal. No pericardial effusion. No mediastinal or hilar adenopathy by size criteria. Thoracic aorta and central pulmonary arteries are normal in size. Esophagus is sebastian l in caliber. No hiatal hernia. Bones and chest wall: No suspicious bony lesions. No vertebral body compression fractures. No axil mariely or supraclavicular adenopathy by size criteria. The left thyroid is mildly enlarged and nodular in appearance. Abdomen: Cystic masses are seen in pancreatic body and tail. There is a 2.7 mm matter in the left hep atic lobe patient's for metastasis. IMPRESSION: 1. No metastatic disease in chest. 2. Enlarged left thyroid lobe with nodularity. Thyroid ultrasound is recommended for follow-up evalua tion. 3. Cystic pancreatic masses and a liver mass in the left hepatic lobe. Please see the recent CT abdom en/pelvis for detail. Reviewed by: Mei Mcclellan MD on 05/08/2021 4:39 PM PDT Approved by: Mei Mcclellan MD on 05/08/2021 4:39 PM PDT Station ID: [id number]
== END 2021-05-08 07:50 | disposition home or self-care (01) ==
LOC: DI 07:49
PROVIDERS: ATTEND Internal Medicine Hematology & Oncology
DX: C25.9 Malignant neoplasm of pancreas, unspecified (principal); C78.7 Secondary malignant neoplasm of liver and intrahepatic bile duct; E04.9 Nontoxic goiter, unspecified
CPT/HCPCS: 36415; 47000; 71260; 77012; 82565; 85014; 85018; 85025; 85610; 85730; A9270; J1170; J7120; Q9967; 85049

== ENCOUNTER 2021-05-19 13:08 | Outpatient (CLI) | payer MEDICARE, OTHER ==
--- NOTE | 2021-05-19 17:22 | CONSULTATION NOTE ---
Palliative Care Follow Up - Referral Referring Provider: Dr. Mohinder Styles Time of Visit: 1315 45min Referral setting: [facility] – [place] Referral Reason: Pain of neoplastic origin/Pancreatic CA with liver mets - Information Sources Records reviewed: Previous records reviewed History/Review of Systems obtained from: Patient, Family ( Steve) Exam limitations: No limitations - History of Present Illness Update Brief HPI Update: This is a angel 70-year-old woman who has a diagnosis of pancreatic cancer, now confirmed with metastatic disease to her liver. She has been awaiting her appointment with oncology, to define her new treatment plan. She has pending chemo education and port placement, and currently has her warfarin on hold regarding awaiting schedule. Palliative care has been seeing patient for psychosocial support as well as pain management. She has been transitioned over to MS Contin 30 mg twice daily with good response. She is only needing intermittent oxycodone 10 mg for breakthrough pain management, she has also started her Creon, with one tab with snacks and meals. Her pain has been exacerbated by eating, this is improved. She is experiencing though increased belching, but denies significant heartburn or nausea. Location of her pain is umbilical and left upper quadrant, as well as diffuse lower back and upper thoracic pain. She rates her pain today at a 2 out of 10 this is significantly improved she is also having improved management of her constipation, with MiraLAX 1-2 times a day and one senna. She presents with concerns regarding management of her warfarin and insulin, and anxiety pending her oncology visit, appropriately concerned regarding implications for both on quality and prognosis. Past Medical History: Hypertension, high cholesterol, atrial fib long-term on Coumadin, peripheral neuropathy baseline from diabetes, type 2 diabetes on insulin, surgical history includes cholecystectomy, EUS upper 04/25, cataracts, tonsil/adenectomy, skin cancer surgery, and most recently liver biopsy Social History - Living Situation Living arrangement: At home Living Situation: With spouse/s.o. 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 She is here with her Arnav, who is very engaged in her treatment and quite supportive. They have been since 1977. They have 1 daughter in [place] and a grandson. Medications/Allergies - Medications Home Medications: Ambulatory Orders Medication Instructions Recorded Confirmed Acebutolol HCl 200 mg PO BID 03/30/19 05/19/21 Insulin Glargine [Lantus Solostar] 40 - 45 units SUBQ DAILY 05/08/20 05/19/21 Lipase/Protease/Amylase [Lida Stover 1 - 3 cap PO QID MDD with 05/05/21 05/19/21 24,000 Units Capsule] meals/snacks Senna [Senokot] 1 tab PO QPM PRN MDD 6-9 05/05/21 05/19/21 oxyCODONE [Roxicodone] 10 mg PO Q3HR PRN 05/05/21 05/19/21 polyethylene glycoL 3350 [Miralax] 17 gm PO DAILY PRN MDD bid 05/05/21 05/19/21 Cannabidiol (Cbd) [Epidiolex] 25 mg PO TID 05/12/21 05/19/21 Morphine Sulfate ER [Ms Contin] 30 mg PO BID 05/19/21 05/19/21 Rivaroxaban [Xarelto] 20 mg PO DAILY 05/20/21 05/20/21 - Allergies Allergies/Adverse Reactions: Allergies Allergy/AdvReac Type Severity Reaction Status Date / Time No Known Drug Allergies Allergy Verified 05/12/21 09:17 Review of Systems - Constitutional Constitutional: reports: Fatigue, Weakness, Weight loss - Eyes Eyes: reports: Vision loss, Corrective lenses - Cardiovascular Cardiovascular: reports: Irregular heart rate, Decr. exercise tolerance - Respiratory Respiratory: reports: SOB with exertion. denies: SOB at rest - Gastrointestinal Gastrointestinal: reports: Abdominal pain (improved), Bloating, Poor appetite, Early satiety, Other (belching). denies: Constipation (going regularly with bowel program) - Musculoskeletal Musculoskeletal: reports: Back pain, Muscle weakness, Assistive devices - Integumentary Integumentary: reports: Dryness - Neurological Neurological: reports: General weakness, Numbness - Endocrine Endocrine: reports: Diabetes type 2 (BS 63 this am; 143 last night; decreased to 42 units) - Hematologic/Lymphatic Hematologic/Lymph: denies: Recurrent infections - All Other Systems All Other Systems: reports: Reviewed and negative Physical Exam - Vital Signs Temperature: 36.1 C Pulse Rate: 55 Respiratory Rate: 18 O2 Saturation: 98 Blood Pressure: 97/51 - Physical Exam General Appearance: positive: No acute distress, Alert, Anxious (awaiting visit with oncology) Eyes Bilateral: positive: Normal inspection ENT: positive: No signs of dehydration Neck: positive: Trachea midline Respiratory: positive: No respiratory distress Abdomen: positive: Soft Skin: positive: Dryness Extremities: positive: Nml appearance, No pedal edema Neurologic/Psychiatric: positive: Oriented x3, Mood/affect nml, Weakness Palliative Care - POLST Patient has POLST: No Pain: Pain improved, Location (abdominal worse with eating; left upper quadrant; upper and lower areas of back), Severity (2/10) Tiredness/Fatigue: Mild (1-3) Drowsiness/Sedation: Mild (1-3) Nausea: Mild (1-3) (presistent; no vomiting) Anorexia: Mild (1-3) Dyspnea: Mild (1-3) Depression: Mild (1-3) Anxiety: Mild (1-3) Feelings of wellbeing/Perceived Quality of Life: Good, Improved (with pain) Constipation: Yes, Opoid induced, Managed Performance Status: Patient has been more sedentary than baseline is able to manage her ADLs. Does experience some fatigue. Is able to sleep in her recliner more comfortably. - Palliative Care Discussion: Discussion centered on experience, continues to be difficult in the context of being prepared for the what that is. Does have pending appointment with oncology, awaiting treatment plan. They have done some exploration on the Internet, did provide resources, that would recommend for more reliable information. Patient appropriately presenting with anxiety, deferred advance care planning until treatment plan established. 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 She has completed staging process, presents with stage IV, awaiting treatment plan via oncology this afternoon. She does present with improved pain management, constipation improved, concern regarding management of diabetes and atrial fib. Palliative care to provide support for pain and symptom management, psychosocial support, and anticipatory guidance. Recommendations/Counseling Done: 1. Pain of neoplastic origin. Patient is currently managing on morphine 30 mg twice daily, using occasionally oxycodone for breakthrough pain of 10 mg. Patient's pain today is 2 out of 10, discussed "next steps" if needs to titrate up can go to 3 times daily, if needs to titrate down we can initiate 15 mg tablets. Patient does not present with any signs or symptoms of overmedication. Her constipation is currently controlled. 2. Constipation. Patient is following bowel program with good results, currently taking MiraLAX daily up to twice a day, and senna 1 tab daily. Will need to continue to monitor particularly when starts chemotherapy, as side effects usually include diarrhea. 3. Weight loss. Patient has pending appointment with dietitian, again encouraged to focus on nutrition, concerned with weight loss regarding low blood sugars. Patient is doing better, it patient with belching, encouraged to increase Creon to 2 tabs with meals and 1 tab with snacks. 4. Atrial fib. Patient has been off her warfarin, pending Port-A-Cath placement. Suspect will have problems with managing protimes given patient's liver mets and pending treatment plan. Addendum; 05/[address] Corby Hinojosa her PCP, she will move her over to a DOAC, will prescribe Xarelto 20 mg daily, pending insurance approval may need an alternative. She will send [facility] to [facility]. Patient notified and reviewed similar side effects in the context of watching for signs and symptoms of bleeding. 5. Hypotension. Patient again with weight loss, presents with blood pressure 97/51. Has been on lisinopril 30 mg long-term, most likely needs medications adjusted. Addendum; 05/[address] Corby Hinojosa, her see PCP, will go ahead and discontinue lisinopril for now. Instructed patient to take blood pressure daily, will reinitiate at lower dose if trends closer to 130s over 70s. 6. Stage IV pancreatic cancer. Patient to initiate treatment, pending oncology appointment as well has chemo education. Addendum. Oncology note reflects Gemzar and Abraxane will be 3 weeks on 1 week off and adjust according to tolerance. 7. Advanced care planning. Patient does understand the seriousness of her il lness, does well with information for coping. We will continue to provide anticipatory guidance and resources regarding symptom management and anticipatory guidance. Short-term goals are to initiate treatment plan, port placement, continue to work on pain management as well as regulate other chronic diseases. 8. Diabetes type 2. Patient with low blood sugar this a.m., given patient's weight loss, counseling provided regarding low blood sugars more dangerous than high, though do want to stay within good range to maximize treatment outcomes. Encouraged to continue to decrease insulin until FBS closer to 100-1 20 and a.m. 45 minutes with greater than 50% of this done in counseling regarding pain and symptom management, anticipatory guidance, disease education, and coordination of care with PCP and oncology.
== END 2021-05-19 13:09 | disposition home or self-care (01) ==
LOC: PC 13:08
PROVIDERS: ATTEND Nurse Practitioner Adult Health
DX: Z51.5 Encounter for palliative care (principal); G89.3 Neoplasm related pain (acute) (chronic); K59.03 Drug induced constipation; T40.2X5A Adverse effect of other opioids, initial encounter; R63.4 Abnormal weight loss; E11.42 Type 2 diabetes mellitus with diabetic polyneuropathy; I48.91 Unspecified atrial fibrillation; I95.9 Hypotension, unspecified; C25.9 Malignant neoplasm of pancreas, unspecified; C78.7 Secondary malignant neoplasm of liver and intrahepatic bile duct; Z79.4 Long term (current) use of insulin; Z79.899 Other long term (current) drug therapy; Z79.891 Long term (current) use of opiate analgesic
CPT/HCPCS: 99215

== ENCOUNTER 2021-05-26 10:00 | Outpatient (CLI) | payer MEDICARE, OTHER ==
--- NOTE | 2021-05-26 11:28 | CONSULTATION NOTE ---
Palliative Care Follow Up - Referral Referring Provider: Dr. Mohinder Styles Time of Visit: 10:00 45 minutes Referral setting: [facility] – [place] Referral Reason: Pain of neoplastic origin/LE edema/Pancreatic CA - Information Sources Records reviewed: Previous records reviewed History/Review of Systems obtained from: Patient, Family ( Arnav) Exam limitations: No limitations - History of Present Illness Update Brief HPI Update: This is a 70-year-old woman with metastatic pancreatic cancer with metastases to liver. She is to start her Gemzar and Abraxane with 3 weeks on 1 week off. I am meeting her during her first infusion. She does have some high anxiety regarding this. She has just seen the dietitian as well, regarding her pancreatic enzymes, and discussion with this, will add famotidine per recommendation to help with the belching as well as proper PH for enzymes to work more effectively. She reports her pain is currently well controlled, she is taking her MS Contin 30 mg twice a day. She reports she has needed very little for breakthrough pain, and has her constipation currently controlled with MiraLAX 1 dose daily and 1 senna at bedtime. She has had her chemotherapy education and consent done, is awaiting her appointment on 06/10 with plans for Port-A-Cath placement. She reports her blood sugars in the a.m. have continued to be fairly low 65-93 and 150 in the evenings. She has decreased to Lantus 37 units, she does not have nor has used short acting insulin. She has been in touch with [facility], they are in agreement with her current treatment per report, but would like to check in again after 2 cycles and scans, this is supportive for them in the context of their goals. Past Medical History: Hypertension, high cholesterol, atrial fib long-term on Coumadin and now Xarelto, peripheral neuropathy baseline from diabetes, Type 2 diabetes on insulin, surgical history includes cholecystectomy, EUS upper 04/25, cataracts, tonsils/adenectomy, skin cancer surgery, liver biopsy Social History - Living Situation Living arrangement: At home Living Situation: With spouse/s.o. 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 She is here with her Arnav who is very supportive. They have been since 1977, they have a daughter in [place] and a grandson. Medications/Allergies - Medications Home Medications: Ambulatory Orders Medication Instructions Recorded Confirmed Acebutolol HCl 200 mg PO BID 03/30/19 05/26/21 Insulin Glargine [Lantus Solostar] 37 units SUBQ DAILY 05/08/20 05/26/21 Lipase/Protease/Amylase [Lida Stover 1 - 4 cap PO QID MDD with 05/05/21 05/26/21 24,000 Units Capsule] meals/snacks Senna [Senokot] 1 tab PO QPM PRN MDD 6-9 05/05/21 05/26/21 oxyCODONE [Roxicodone] 10 mg PO Q3HR PRN 05/05/21 05/26/21 polyethylene glycoL 3350 [Miralax] 17 gm PO DAILY PRN MDD bid 05/05/21 05/26/21 Cannabidiol (Cbd) [Epidiolex] 25 mg PO BID 05/12/21 05/26/21 Morphine Sulfate ER [Ms Contin] 30 mg PO BID 05/19/21 05/26/21 Lidocaine/Prilocain 2.5% Cream 5 applic TOP UD #1 gm 05/20/21 05/26/21 [Emla 2.5% Cream] Ondansetron HCl [Zofran] 4 mg PO Q6HR PRN #30 tab 05/20/21 05/26/21 Rivaroxaban [Xarelto] 20 mg PO DAILY 05/20/21 05/26/21 Cyanocobalamin (Vitamin B-12) 1 tab PO DAILY 05/26/21 05/26/21 [Vitamin B-12] Famotidine [Pepcid] 20 mg PO DAILY 05/26/21 05/26/21 Lactobacillus Combination No.4 1 cap PO DAILY 05/26/21 05/26/21 [Probiotic] - Allergies Allergies/Adverse Reactions: Allergies Allergy/AdvReac Type Severity Reaction Status Date / Time No Known Drug Allergies Allergy Verified 05/12/21 09:17 Review of Systems - Constitutional Constitutional: reports: Fatigue, Poor appetite, Weight stable (15 pounds total) - Eyes Eyes: reports: Vision loss, Corrective lenses - Cardiovascular Cardiovascular: reports: Irregular heart rate, Decr. exercise tolerance - Respiratory Respiratory: reports: SOB with exertion. denies: SOB at rest - Gastrointestinal Gastrointestinal: reports: Bloating, Poor appetite, Early satiety, Other (taste changes). denies: Abdominal pain (currently controlled), Constipation (currently controlled) - Musculoskeletal Musculoskeletal: reports: Back pain, Muscle weakness, Assistive devices - Neurological Neurological: reports: Numbness - Psychiatric Psychiatric: reports: Anxiety - Endocrine Endocrine: reports: Diabetes type 2 (BS 65-95 in am; 150's PM currently talking 37 units; titrating to effect) - All Other Systems All Other Systems: reports: Reviewed and negative Physical Exam - Physical Exam General Appearance: positive: No acute distress, Alert Eyes Bilateral: positive: No scleral icterus, Other (slight periorbital edema) ENT: positive: No signs of dehydration Neck: positive: Trachea midline Cardiovascular: positive: Irregular Respiratory: positive: No respiratory distress, Breath sounds nml. negative: Rales Abdomen: positive: Non-tender, Soft, Obese Extremities: positive: Pedal edema (trace in ankles) Neurologic/Psychiatric: positive: Mood/affect nml, Weakness Palliative Care - POLST Patient has POLST: No POLST Status: Full Code Pain: Pain improved, Location (abdominal/upper thoracic area), Comment (using MS ER 30 mg bid) Feelings of wellbeing/Perceived Quality of Life: Fair, Improved Constipation: Yes, Opoid induced, Managed Performance Status: Patient continues with low energy, is wanting to increase her activity does report it has improved some. Is able to manage her own ADLs. Does walk with a cane secondary to peripheral neuropathy. - Palliative Care Discussion: Patient and continue with her busy schedule related to her cancer and cancer treatment, are feeling somewhat overwhelmed and anxious. Are glad to finally be moving forward with treatment plan, has pending Port-A-Cath placement. They have decided this time to continue at [facility], with continued support from [facility] for second opinion. We are waiting to see how this first round of treatment go, appropriately anxious and expressing feelings. Results - Lab Results Lab results reviewed: Yes Impression and Recommendations - Palliative Care Impression: This is a angel 70-year-old woman with invasive adenocarcinoma of the pancreas with metastatic disease to liver and elevated CA19. She is starting treatment today, with Gemzar and Abraxane, with plan for 3 weeks on and 1 week off. Her pain is currently controlled, continued with some GI symptoms, has met with dietitian today we will continue to work with enzymes and titrate program accordingly with side effects of chemotherapy. Palliative care continue to provide support for pain and symptom management, advanced care planning, and anticipatory guidance Recommendations/Counseling Done: 1. Pain of neoplastic origin. Patient is currently managing on morphine extended release 30 mg twice a day, using occasional oxycodone for breakthrough pain of 10 mg. No changes needed for pain regimen. 2. Constipation. Patient is taking MiraLAX daily and 1 senna tab at nighttime. She has picked up loperamide will have to titrate to effect with side effects of chemotherapy. We will continue to readjust. 3. Weight loss. She has met with the dietitian, and consult with dietitian, we did review her Creon, she did recommend adding famotidine 20 mg daily. This was prescribed and reviewed with patient and . 4. Atrial fib. Had spoken to her PCP Dr. Hinojosa, has moved her over to a DOAC, is currently taking Xarelto 20 mg daily which will help facilitate better management of procedures as well as concerns for fluctuating and pro time with treatment. 5. Hypertension. Patient with weight loss, today's blood pressure within normal range, will continue to monitor. She may need initiation of small dose lisinopril. 6. Lower extremity edema. She has trace edema mostly in her feet and ankles, this is new over the last for 5 days. Instructed on management of compression socks, elevating feet with sitting, and walking on a regular basis. Can reach out to either palliative care or PCP if persists. 7. Diabetes type 2. Patient continues with persistent low blood sugars in the a.m., but is receiving dexamethasone today. Reviewed most likely will have some fluctuation over the next day or 2, does not have any short acting NovoLog, will see how she does prior to adding to the complexity of her treatment. Encouraged to continue to decrease insulin until fasting blood sugars closer to 100 in the a.m. 8. Advance care planning. Patient and continue to struggle with the seriousness of her illness, continue to see information to be able to weigh benefits and burdens of treatment options. Short-term goals continue initiate and evaluate response to treatment, port placement, and continue management of s ymptoms. Will introduce advanced care planning at future date when patient with better understanding of the plan and response to treatment. 45 minutes review of records, oncology notes, labs, [id number] with patient and for counseling regarding symptom management, coordination of care with oncology team and dietitian
== END 2021-05-26 10:01 | disposition home or self-care (01) ==
LOC: PC 10:00
PROVIDERS: ATTEND Nurse Practitioner Adult Health
DX: Z51.5 Encounter for palliative care (principal); G89.3 Neoplasm related pain (acute) (chronic); K59.00 Constipation, unspecified; R63.4 Abnormal weight loss; R53.83 Other fatigue; I48.91 Unspecified atrial fibrillation; I10 Essential (primary) hypertension; R60.0 Localized edema; E11.42 Type 2 diabetes mellitus with diabetic polyneuropathy; C78.7 Secondary malignant neoplasm of liver and intrahepatic bile duct; C25.9 Malignant neoplasm of pancreas, unspecified; Z79.899 Other long term (current) drug therapy; Z79.4 Long term (current) use of insulin; Z79.01 Long term (current) use of anticoagulants
CPT/HCPCS: 99215

== ENCOUNTER 2021-06-09 12:17 | Outpatient (CLI) | payer MEDICARE, OTHER ==
--- NOTE | 2021-06-09 16:36 | CONSULTATION NOTE ---
Palliative Care Follow Up - Referral Referring Provider: Dr. Mohinder Styles Time of Visit: 10:00 60 min Referral setting: [facility] [place] Referral Reason: Pain of neoplastic origin/Fatigue/Rash/Met Pancreatic CA - Information Sources Records reviewed: Previous records reviewed History/Review of Systems obtained from: Patient, Family ( Arnav) Exam limitations: No limitations - History of Present Illness Update Brief HPI Update: This is a 70-year-old woman with metastatic pancreatic cancer with mets to liver, she has received her Gemzar and Abraxane, with first dose on 05/26/2021. She received Day 8 last Tuesday, and developed a diffuse rash, worsening fatigue, it is not pruritic in nature, and has fluctuated with this morning being the worst. It does cover full truncal area and back, none or just a few scattered areas on her lower extremities. She has not had any nausea, her pain continues improved. She still has some belching. She has had lower blood pressures, though within acceptable range, she did present this morning with a low blood sugar of 40, she had been taking her Lantus at 37, after eating it r aised to 85, and on her labs an hour ago it was 169. She appears fatigued and tired, color somewhat sallow, her labs Reflect neutropenia, with a WBC of 1.1 and neutrophil count of 0.5, hemoglobin 11, and platelets 88. She denies any systemic infection symptoms with no increased respiratory distress, cough, dysuria, fever or chills. She is complaining of persistent fatigue and needing to nap frequently. Patient's pain has essentially improved, she is a 0 out of 10 today. She still is significantly anorexic, denies nausea, suspect she has lost another few pounds. She feels poorly overall. She does report her bowels are moving with the use of MiraLAX and senna. She is appropriately anxious with her increased symptom burden. Past Medical History: Hypertension, high cholesterol, atrial fib long-term on anticoag, currently on Xarelto, peripheral neuropathy baseline from diabetes, type 2 diabetes on insulin, surgical history includes cholecystectomy, EUS upper 04/25, cataracts, tonsil/adenectomy, skin cancer surgery, liver biopsy, pending Port-A-Cath placement tomorrow Social History - Living Situation Living arrangement: At home Living Situation: With spouse/s.o. 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 She has a daughter and grandson in [place], is very helpful to get down there to visit, she has a home down there as well. She has a angel Arnav who is very supportive, they have been since 1977. Medications/Allergies - Medications Home Medications: Ambulatory Orders Medication Instructions Recorded Confirmed Acebutolol HCl 200 mg PO BID 03/30/19 06/10/21 Insulin Glargine [Lantus Solostar] 32 units SUBQ DAILY MDD titrating 05/08/20 06/10/21 Lipase/Protease/Amylase [Lida Dr 1 - 4 cap PO QID MDD with 05/05/21 06/10/21 24,000 Units Capsule] meals/snacks Senna [Senokot] 1 tab PO QPM PRN MDD 6-9 05/05/21 06/10/21 oxyCODONE [Roxicodone] 10 mg PO Q3HR PRN 05/05/21 06/10/21 polyethylene glycoL 3350 [Miralax] 17 gm PO DAILY PRN MDD bid 05/05/21 06/10/21 Cannabidiol (Cbd) [Epidiolex] 25 mg PO BID 05/12/21 06/10/21 Morphine Sulfate ER [Ms Contin] 15 mg PO TID MDD titrating down 05/19/21 06/10/21 Lidocaine/Prilocain 2.5% Cream 5 applic TOP UD #1 gm 05/20/21 06/10/21 [Emla 2.5% Cream] Ondansetron HCl [Zofran] 4 mg PO Q6HR PRN #30 tab 05/20/21 06/10/21 Rivaroxaban [Xarelto] 20 mg PO DAILY 05/20/21 06/10/21 Cyanocobalamin (Vitamin B-12) 1 tab PO DAILY 05/26/21 06/10/21 [Vitamin B-12] Famotidine [Pepcid] 20 mg PO DAILY 05/26/21 06/10/21 Lactobacillus Combination No.4 1 cap PO DAILY 05/26/21 06/10/21 [Probiotic] - Allergies Allergies/Adverse Reactions: Allergies Allergy/AdvReac Type Severity Reaction Status Date / Time No Known Drug Allergies Allergy Verified 05/26/21 11:22 Review of Systems - Constitutional Constitutional: reports: Fatigue (worsening and persistent; exacerbated with last treatment), Poor appetite, Weight loss - Eyes Eyes: reports: Vision loss, Corrective lenses - Ears, Nose & Throat Ears, Nose & Throat: denies: Mouth lesions - Cardiovascular Cardiovascular: reports: Irregular heart rate, Decr. exercise tolerance - Respiratory Respiratory: reports: SOB with exertion. denies: SOB at rest - Gastrointestinal Gastrointestinal: reports: Bloating, Poor appetite, Early satiety, Other (taste changes). denies: Abdominal pain (currently controlled), Constipation (currently controlled) - Musculoskeletal Musculoskeletal: reports: Back pain, Muscle weakness, Assistive devices - Integumentary Integumentary: reports: Rash (diffuse on trunk and back; no raised lesions), Hair changes (thinning) - Neurological Neurological: reports: General weakness, Numbness, Abnormal gait - Psychiatric Psychiatric: reports: Anxiety - Endocrine Endocrine: reports: Diabetes type 2 (BS 40 this am; ;has been running low taking 37 units; adjusted today to 32) - Hematologic/Lymphatic Hematologic/Lymph: reports: Anemia - All Other Systems All Other Systems: reports: Reviewed and negative Physical Exam - Vital Signs Pulse Rate: 108 Respiratory Rate: 18 Blood Pressure: 118/68 - Physical Exam General Appearance: positive: Alert, Mild distress, Anxious Eyes Bilateral: positive: No scleral icterus, Other (slight periorbital edema) ENT: negative: Oral lesions Neck: positive: Trachea midline Cardiovascular: positive: Irregular, Tachycardia Respiratory: positive: No respiratory distress, Breath sounds nml. negative: Rales Abdomen: positive: Non-tender, Soft, Obese Skin: positive: Pallor, Dryness, Rash Extremities: positive: Pedal edema (1 + on left up to knee; new trace right up to midcalf) Neurologic/Psychiatric: positive: Oriented x3, Weakness, Depressed mood/affect, Flat affect Palliative Care - POLST Patient has POLST: No POLST Status: Full Code Pain: Pain improved, Severity (0/10) Feelings of wellbeing/Perceived Quality of Life: Poor, Worsening Constipation: Yes, Opoid induced, Managed Performance Status: Patient with increased fatigue, poor activity tolerance. Is able to manage her own ADLs, but is resting and taking more naps. Does walk with a cane secondary to peripheral neuropathy at baseline - Palliative Care Discussion: Patient is very discouraged with energy and side effects, remains somewhat overwhelmed with ongoing symptom burden. Weighing decisions regarding priorities and navigating the complexity of her cancer journey. Results - Lab Results Lab results reviewed: Yes Impression and Recommendations - Palliative Care Impression: This is a angel 70-year-old woman with invasive adenocarcinoma the pancreas with metastatic disease to liver. She is experiencing toxicities related to her treatment, rash most likely attributed to the Gemzar. She has had dramatic response in her pain, will look at titrating back to affect. Treatment on hold this week, will meet with oncology with reevaluate next Tuesday. Palliative care continue to provide support for pain and symptom management, advanced care planning, and anticipatory guidance. Recommendations/Counseling Done: 1. Pain of neoplastic origin. Patient with no pain currently on morphine extended release 30 mg twice a day, given patient's most likely clinical response to treatment, will look at titrating back morphine, 15 mg extended release tabs ordered. Instructed to start with 15 mg 3 times daily, through Wednesday 06/13, if no reoccurrence are pain remains 0-2 out of 10, decreased to 15 mg twice daily. Patient does have oxycodone for breakthrough if needed. We will continue to monitor. 2, Hypoglycemia. Patient with weight loss, decreased intake, and low blood sugars in AM. High risk for significant events with blood sugar 40 this a.m. Will go ahead and decrease Lantus to 32 units, and titrate accordingly, with goal for blood sugar a.m. 90-1 20. 3. Constipation. Patient taking MiraLAX and senna with good response. 4. Weight loss. She continues with belching, his been instructed to continue the famotidine 20 mg daily and take consistently. This is also to maximize the effectiveness of Creon. Patient has not had any nausea, but continues with poor appetite, taste changes, and early satiety. 5. Hypertension. Patient with weight loss, blood pressures have been within normal range, will continue to monitor currently does not need antihypertensive medication. 6. Lower extremity edema. This is increased somewhat, will continue to monito r. Patient has been instructed on compression and elevation. 7. Metastatic pancreatic cancer. Patient treatment on hold this week, to meet with oncology next week to reevaluate dosing and regimen. Patient presents with rash today, is not pruritic, but did order triamcinolone 0.1% if becomes problematic. She was inquiring on naturopathic/homeopathic support from questions from family, did discuss in the context of have to weigh benefits and burdens as some can actually interfere in treatment or add to pill burden. Did provide her resources of Dr. Davida Talavera and Dr. Yanira Healy [phone] who are naturopaths over at [facility] at work with cancer patients. 8. Advance care planning. Patient has been continue to struggle with seriousness of her illness, continuing to weigh benefits and burdens of treatment options. Short-term goals continue to initiate and evaluate response to treatment, does have pending port placement, will continue to introduce and follow through on ACP. 60 minutes with review of labs, oncology notes, treatment plan, coordination of care with oncology team, [id number] for evaluation and counseling regarding treatment management, symptom management and anticipatory guidance
== END 2021-06-09 12:18 | disposition home or self-care (01) ==
LOC: PC 12:17
PROVIDERS: ATTEND Nurse Practitioner Adult Health
DX: Z51.5 Encounter for palliative care (principal); G89.3 Neoplasm related pain (acute) (chronic); C25.9 Malignant neoplasm of pancreas, unspecified; C78.7 Secondary malignant neoplasm of liver and intrahepatic bile duct; I48.91 Unspecified atrial fibrillation; E11.42 Type 2 diabetes mellitus with diabetic polyneuropathy; R53.83 Other fatigue; H54.7 Unspecified visual loss; L27.0 Generalized skin eruption due to drugs and medicaments taken internally; T45.1X5A Adverse effect of antineoplastic and immunosuppressive drugs, initial encounter; E11.649 Type 2 diabetes mellitus with hypoglycemia without coma; K59.00 Constipation, unspecified; R63.4 Abnormal weight loss; I10 Essential (primary) hypertension; Z79.01 Long term (current) use of anticoagulants; Z79.4 Long term (current) use of insulin; Z79.899 Other long term (current) drug therapy
CPT/HCPCS: 99215

== ENCOUNTER 2021-06-10 06:33 | Day surgery (SDC) | payer MEDICARE, OTHER ==
[2021-06-10] MEDS ORDERED: LACTATED RINGERS 1,000 ML IV ONE ×2 (07:09→09:20)
[2021-06-10] MEDS ORDERED: LIDOCAINE 1% 50 ML MDV ONE (07:14)
[2021-06-10] MEDS ORDERED: SODIUM CHLORIDE 0.9% 10 ML VIAL IVP ONE ×2 (07:14→07:28)
[2021-06-10] MEDS ORDERED: BUPIVACAINE 0.5% PF 10 ML VIAL ONE (07:14)
--- NOTE | 2021-06-10 07:19 | ANESTHESIA ---
Pre-Anesthesia VS, & Labs - Diagnosis pancreatic cancer - Procedure portacath placement Vital Signs: Temp Pulse Resp BP Pulse Ox 36.6 C 67 20 123/74 98 06/10/21 06:45 06/10/21 06:45 06/10/21 06:45 06/10/21 06:45 06/10/21 06:45 Height: 5 ft 3 in Weight (kg): 104.1 kg Body Mass Index: 40.6 BMI Classification: Morbidly Obese - NPO >8 hours - Is Patient ?: No - Lab Results Current Lab Results: Laboratory Tests 06/10/21 07:03: POC Whole Bld Glucose 93 Lab results reviewed: Yes Home Medications and Allergies Acebutolol HCl 200 mg PO BID 03/30/19 Insulin Glargine [Lantus Solostar] 32 units SUBQ DAILY MDD titrating 05/08/20 Lipase/Protease/Amylase [Creon Dr 24,000 Units Capsule] 1 - 4 cap PO QID MDD with meals/snacks 05/05/21 Senna [Senokot] 1 tab PO QPM PRN MDD 6-9 05/05/21 oxyCODONE [Roxicodone] 10 mg PO Q3HR PRN 05/05/21 polyethylene glycoL 3350 [Miralax] 17 gm PO DAILY PRN MDD bid 05/05/21 Cannabidiol (Cbd) [Epidiolex] 25 mg PO BID 05/12/21 Morphine Sulfate ER [Ms Contin] 15 mg PO TID MDD titrating down 05/19/21 Rivaroxaban [Xarelto] 20 mg PO DAILY 05/20/21 Cyanocobalamin (Vitamin B-12) [Vitamin B-12] 1 tab PO DAILY 05/26/21 Famotidine [Pepcid] 20 mg PO DAILY 05/26/21 Lactobacillus Combination No.4 [Probiotic] 1 cap PO DAILY 05/26/21 Allergies/Adverse Reactions: Allergies Allergy/AdvReac Type Severity Reaction Status Date / Time No Known Drug Allergies Allergy Verified 05/26/21 11:22 Anes History & Medical History - Anesthetic History Anesthesia Complications: reports: No previous complications Family history of Anesthesia Complications: Denies Family history of Malignant Hyperthermia: Denies - Medical History Cardiovascular: reports: Hypertension, High cholesterol, Atrial fibrillation (on xarelto, last took 06/08) Pulmonary: reports: None Gastrointestinal: reports: Other Urinary: reports: None Neuro: reports: Peripheral neuropathy Musculoskeletal: reports: Chronic back pain Endocrine/Autoimmune: reports: Type 2 diabetes Skin: reports: Other Smoking Status: Former smoker - Surgical History General: reports: Cholecystectomy, Other Eyes Ears Nose Throat (EENT): reports: Cataracts, Tonsil/Adenoidectomy Dermatologic: reports: Skin cancer surgery Exam General: Alert, Oriented x3, Cooperative, No acute distress Mouth Openin Fingerbreadth Neck Mobility: Normal Mallampati classification: II Respiratory: Lungs clear, Normal breath sounds, No respiratory distress, No accessory muscle use Cardiovascular: Regular rate, Normal S1, Normal S2, No murmurs Plan Anesthesia Type: General, MAC, Total IV Consent for Procedure(s) Verified and Reviewed: Yes Code Status: Attempt Resuscitation ASA classification: 3-Severe systemic disease Is this case an emergency?: No
[2021-06-10] MEDS ORDERED: NALOXONE 0.4 MG/ML VIAL IVP PRN (07:20)
[2021-06-10] MEDS ORDERED: METOCLOPRAMIDE 10 MG/2 ML VIAL IVP PRN (07:20)
[2021-06-10] MEDS ORDERED: HYDROmorphone 0.5 MG/0.5 ML SYRINGE IVP PRN (07:20)
[2021-06-10] MEDS ORDERED: ATROPINE ABBOJECT 1 MG/10 ML SYRINGE IVP PRN (07:20)
[2021-06-10] MEDS ORDERED: ONDANSETRON 4 MG/2 ML VIAL IVP PRN ×2 (07:20→08:44)
[2021-06-10] MEDS ORDERED: ePHEDrine 50 MG/ML VIAL IVP PRN (07:20)
[2021-06-10] MEDS ORDERED: fentaNYL 100 MCG/2 ML VIAL IVP PRN (07:20)
[2021-06-10] MEDS ORDERED: MORPHINE 2 MG/ML CARPUJECT IVP PRN (07:20)
[2021-06-10] MEDS ORDERED: ONDANSETRON 4 MG/2 ML VIAL ONE (07:24)
[2021-06-10] MEDS ORDERED: LIDOCAINE-MPF 2% 5 ML VIAL ONE (07:24)
[2021-06-10] MEDS ORDERED: PROPOFOL 500 MG/50 ML 500 MG/50 ML VIAL ONE (07:24)
--- NOTE | 2021-06-10 07:24 | HISTORY & PHYSICAL EXAMINATION ---
Chief Complaint - Chief Complaint Chief Complaint: cancer and need for chemotherapy port History of Present Illness - History Obtained From Records Reviewed: yes History obtained from: pt Exam Limitations: none - History of Present Illness HPI Comment/Other: Pancreatic cancer. Chemotherapy and port has been recommended. History - Past Medical History Cardiovascular: reports: Hypertension, High cholesterol, Atrial fibrillation (on xarelto, last took 06/08) Respiratory: reports: None Neuro: reports: Peripheral neuropathy Endocrine/Autoimmune: reports: Type 2 diabetes GI: reports: Other FOXER: reports: None : reports: None HEENT: reports: Chronic vision loss Psych: reports: None Musculoskeletal: reports: Chronic back pain Derm: reports: Other MRSA Hx?: No - Past Surgical History General: reports: Cholecystectomy, Other HEENT: reports: Cataracts, Tonsil/Adenoidectomy Derm: reports: Skin cancer surgery - Family & Social History Family History: Mother: , Alzheimer's Disease, Father: , CAD, Sister: Alive and Well Living Situation: With spouse/s.o. - Substance History Use: Uses substance without health or social issues: Alcohol - POLST Patient has POLST: No Meds/Allgy - Home Medications Home Medications: Ambulatory Orders Medication Instructions Recorded Confirmed Acebutolol HCl 200 mg PO BID 03/30/19 06/10/21 Insulin Glargine [Lantus Solostar] 32 units SUBQ DAILY MDD titrating 05/08/20 06/10/21 Lipase/Protease/Amylase [Lida Stover 1 - 4 cap PO QID MDD with 05/05/21 06/10/21 24,000 Units Capsule] meals/snacks Senna [Senokot] 1 tab PO QPM PRN MDD 6-9 05/05/21 06/10/21 oxyCODONE [Roxicodone] 10 mg PO Q3HR PRN 05/05/21 06/10/21 polyethylene glycoL 3350 [Miralax] 17 gm PO DAILY PRN MDD bid 05/05/21 06/10/21 Cannabidiol (Cbd) [Epidiolex] 25 mg PO BID 05/12/21 06/10/21 Morphine Sulfate ER [Ms Contin] 15 mg PO TID MDD titrating down 05/19/21 06/10/21 Lidocaine/Prilocain 2.5% Cream 5 applic TOP UD #1 gm 05/20/21 06/10/21 [Emla 2.5% Cream] Ondansetron HCl [Zofran] 4 mg PO Q6HR PRN #30 tab 05/20/21 06/10/21 Rivaroxaban [Xarelto] 20 mg PO DAILY 05/20/21 06/10/21 Cyanocobalamin (Vitamin B-12) 1 tab PO DAILY 05/26/21 06/10/21 [Vitamin B-12] Famotidine [Pepcid] 20 mg PO DAILY 05/26/21 06/10/21 Lactobacillus Combination No.4 1 cap PO DAILY 05/26/21 06/10/21 [Probiotic] - Allergies Allergies/Adverse Reactions: Allergies Allergy/AdvReac Type Severity Reaction Status Date / Time No Known Drug Allergies Allergy Verified 05/26/21 11:22 Review of Systems - Other Findings Other Findings: 10 pt ros as above otherwise unremarkable Exam - Vital Signs Reviewed Vital Signs: Yes Vital Signs: Vital Signs x48h Temp Pulse Resp BP Pulse Ox 06/10/21 06:45 36.6 C 67 20 123/74 98 - Physical Exam General Appearance: positive: No acute distress, Alert Eyes Bilateral: positive: PERRL, EOMI, No scleral icterus ENT: positive: No signs of dehydration Neck: positive: No JVD Respiratory: positive: No respiratory distress, Breath sounds nml Cardiovascular: positive: Regular rate & rhythm Abdomen: positive: Non-tender, No distention Neurologic/Psychiatric: positive: Oriented x3 Conclusion/Plan - Problem List (1) Pancreatic cancer Conclusion/Plan: plan chemotherapy port. parq held and consent obtained - Lab Results Lab results reviewed: Yes
[2021-06-10] MEDS ORDERED: KETAMINE 500 MG/10 ML VIAL ONE (07:25)
[2021-06-10] MEDS ORDERED: MIDAZOLAM 2 MG/2 ML VIAL ONE (07:31)
[2021-06-10] MEDS ORDERED: ePHEDrine 50 MG/ML VIAL IVP ONE (07:57)
[2021-06-10] MEDS ORDERED: LACTATED RINGERS 1,000 ML IV SCH (08:00)
[2021-06-10] MEDS ORDERED: ceFAZolin 1 GM VIAL ONE ×2 (08:05)
[2021-06-10] MEDS ORDERED: LIDOCAINE 1% 50 ML MDV SUBQ ONE (08:26)
[2021-06-10] MEDS ORDERED: BUPIVACAINE 0.25% PF 30 ML VIAL SUBQ ONE (08:26)
[2021-06-10] MEDS ORDERED: oxyCODONE 5 MG TABLET PO PRN (08:44)
--- NOTE | 2021-06-10 08:49 | OPERATIVE REPORT ---
Operative Report - General Procedure Date: 06/10/21 Planned Procedure: left subclavian power port placement Pre-Op Diagnosis: pancreatic cancer Procedure Performed: left subclavian power port placement Post Op Diagnosis: pancreatic cancer - Procedure Note Primary Surgeon: barbara og Anesthesia Technique: Local, MAC Estimated Blood Loss (mL): 2 Drain/Tube Type: Other (none) Indications: need for chemotherapy Findings: good placement at distal svc. good flush and flow Complications: none - Other Other Information/Narrative: The patient was properly identified brought to the operating room and placed in supine position. Monitored anesthesia care was given as well as IV sedation. A towel roll was placed under the upper back. The patient was prepped and draped in a sterile fashion and given preoperative antibiotics. Local anesthetic was given. The left subclavian vein was easily accessed first pass with a needle. Guide wire placed and position confirmed. A subcutaneous pocket on the left upper chest was created measuring approximately 2-1/2 cm. Portacatheter tubing was then placed subcutaneous up to the venous access point. The portacatheter tubing was then easily placed with the use of a dilator peel-away sheath. The tubing was aspirated and flushed with saline. Under fluoroscopic guidance the tubing was pulled back to the junction of the atrium and the superior vena cava. The portacatheter aspirated and flushed easily assuring good position. The portacatheter was then cut to size and further assembled. The port was secured to subcutaneous tissue with 2 interrupted 4-0 Prolene sutures. The port again was aspirated and flushed now with heparin. Buried interrupted subdermal 3-0 Vicryl sutures were then placed. Skin was closed with buried interrupted and running 4-0 Monocryl subcuticular suture. Dressing was applied. The patient tolerated the procedure well was awakened and brought to recovery in good condition.
[2021-06-10 09:23] VITALS: BP 125/61
--- NOTE | 2021-06-10 10:28 | XRAY Report ---
PROCEDURE: OR Port-A-Cath INDICATIONS: PORT PLACEMENT TECHNIQUE: Single intraoperative view COMPARISON: None. FINDINGS: Single intraoperative spot fluoroscopic view demonstrates partially visualized catheter with the tip projecting in the region of the upper SVC/proximal left brachiocephalic vein. Reviewed by: Dudley Goldman MD on 06/10/2021 10:27 AM PDT Approved by: Dudley Goldman MD on 06/10/2021 10:27 AM PDT Station ID: [id number]
--- NOTE | 2021-06-10 11:09 | ANESTHESIA POST OP EVALUATION ---
Anesthesia Post Eval - Post Anesthesia Eval Vitals: Last Vital Signs Temp 36.8 C 06/10/21 09:20 Pulse 93 06/10/21 09:20 Resp 16 06/10/21 09:20 BP 125/61 06/10/21 09:20 Pulse Ox 98 06/10/21 09:20 CV Function Including HR & BP: Stable Pain Control: Satisfactory Nausea & Vomiting: Negative Mental Status: Baseline Respiratory Status: Airway Patent Hydration Status: Satisfactory Anesthesia Complications: None
== END 2021-06-10 06:34 | disposition home or self-care (01) ==
LOC: SDS 06:33
PROVIDERS: ATTEND Surgery
DX: C25.9 Malignant neoplasm of pancreas, unspecified (principal); E66.01 Morbid (severe) obesity due to excess calories; Z68.41 Body mass index [BMI] 40.0-44.9, adult; Z87.891 Personal history of nicotine dependence
CPT/HCPCS: 36561; C1788; J7120

== ENCOUNTER 2021-06-16 08:33 | Outpatient (CLI) | payer MEDICARE, OTHER ==
--- NOTE | 2021-06-16 12:32 | CONSULTATION NOTE ---
Palliative Care Follow Up - Referral Referring Provider: Dr. Inna Soni Time of Visit: 1015 45 min [place] [facility] [place] [place] Reason: Pain of neoplastic origin/Fatigue/Anorexia/Met Pancreatic CA - Information Sources Records reviewed: Previous records reviewed History/Review of Systems obtained from: Patient, Family ( Arnav) Exam limitations: No limitations - History of Present Illness Update Brief HPI Update: This is a 70-year-old woman with metastatic pancreatic cancer with mets to liver, is receiving Gemzar and Abraxane, developed a diffuse rash, worsening fatigue, it is since cleared. She continues with persistent anorexia though somewhat improved over the weekend, as well as worsening fatigue. She had to use the triamcinolone with good results both with itching and settling of rash. Unfortunately patient has not adjusted her Lantus as directed, she is continued at 37 units with early a.m. blood sugars of 40, she has been getting up in the middle the night to take a snack so they are not so low with some success. We reviewed instructions which were to decrease to 32 units, though may be higher for next couple of days with the decadron. Towards the end of week if continues to be low even on 32 units, she is to decrease by 1 to 2 units every 2 to 3 days until a.m. blood sugars are between 90 and 120. Patient's pain is continued to improve, she is again a 0 out of 10, she has tolerated the decrease of morphine of 15 mg 3 times daily, instructed to use decrease to twice daily, and evaluate. Can return to 3 times daily dosing if pain returns. Patient continues with anorexia, early satiety, she is having regular bowel movements though. Is using bowel meds if no BM after 2 days. She is titrated appropriately. Patient is using some CBD, may be helping her appetite, is using her Creon, and small meals. She reports her weight is a little better at 234, is trying to eat better, as knows this will help with her fatigue. Past Medical History: Hypertension, high cholesterol, atrial fib currently on Xarelto, peripheral neuropathy baseline from diabetes, type 2 diabetes on insulin, surgical history includes cholecystectomy, EUS upper 04/25, cataracts, tonsil adenectomy, skin cancer surgery, liver biopsy, Port-A-Cath placement 06/10 Social History - Living Situation Living arrangement: At home Living Situation: With spouse/s.o. 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 She is to her angel Arnav, they have been since 1977. They have a daughter and her family/grandson in [place], are hoping to get down for a visit. She has a home there as well. Medications/Allergies - Medications Home Medications: Ambulatory Orders Medication Instructions Recorded Confirmed Acebutolol HCl 200 mg PO BID 03/30/19 06/16/21 Insulin Glargine [Lantus Solostar] 32 units SUBQ DAILY MDD titrating 05/08/20 06/16/21 Lipase/Protease/Amylase [Lida Stover 1 - 4 cap PO QID MDD with 05/05/21 06/16/21 24,000 Units Capsule] meals/snacks Senna [Senokot] 1 tab PO QPM PRN MDD 6-9 05/05/21 06/16/21 oxyCODONE [Roxicodone] 10 mg PO Q3HR PRN 05/05/21 06/16/21 polyethylene glycoL 3350 [Miralax] 17 gm PO DAILY PRN MDD bid 05/05/21 06/16/21 Cannabidiol (Cbd) [Epidiolex] 25 mg PO BID 05/12/21 06/16/21 Morphine Sulfate ER [Ms Contin] 15 mg PO BID MDD titrating down 05/19/21 06/16/21 Lidocaine/Prilocain 2.5% Cream 5 applic TOP UD #1 gm 05/20/21 06/16/21 [Emla 2.5% Cream] Ondansetron HCl [Zofran] 4 mg PO Q6HR PRN #30 tab 05/20/21 06/16/21 Rivaroxaban [Xarelto] 20 mg PO DAILY 05/20/21 06/16/21 Cyanocobalamin (Vitamin B-12) 1 tab PO DAILY 05/26/21 06/16/21 [Vitamin B-12] Famotidine [Pepcid] 20 mg PO DAILY 05/26/21 06/16/21 Lactobacillus Combination No.4 1 cap PO DAILY 05/26/21 06/16/21 [Probiotic] Triamcinolone 0.1% Oint [Kenalog 1 applic TOP BID PRN 06/16/21 06/16/21 0.1% Oint] - Allergies Allergies/Adverse Reactions: Allergies Allergy/AdvReac Type Severity Reaction Status Date / Time No Known Drug Allergies Allergy Verified 05/26/21 11:22 Review of Systems - Constitutional Constitutional: reports: Fatigue (remains persistent; limiting but better over W/E), Poor appetite, Weight loss (234) - Eyes Eyes: reports: Vision loss, Corrective lenses - Ears, Nose & Throat Ears, Nose & Throat: reports: Dry mouth - Cardiovascular Cardiovascular: reports: Irregular heart rate, Lightheadedness, Decr. exercise tolerance - Respiratory Respiratory: reports: SOB with exertion. denies: SOB at rest - Gastrointestinal Gastrointestinal: reports: Bloating, Poor appetite, Early satiety, Other (taste changes). denies: Abdominal pain (currently controlled), Constipation (currently controlled), Nausea (but improved appetite with ondansetron) - Musculoskeletal Musculoskeletal: reports: Back pain, Muscle weakness, Assistive devices (uses can) - Integumentary Integumentary: reports: Rash (resolved), Hair changes (alopecia; appointment for wigs) - Neurological Neurological: reports: General weakness, Numbness (baseline peripheral neuropathy in feet), Abnormal gait - Psychiatric Psychiatric: reports: Anxiety - Endocrine Endocrine: reports: Diabetes type 2 (did not adjust to 32 units; has continued low; will start today) - Hematologic/Lymphatic Hematologic/Lymph: reports: Anemia (11.4) - All Other Systems All Other Systems: reports: Reviewed and negative Physical Exam - Physical Exam General Appearance: positive: No acute distress, Alert Eyes Bilateral: positive: No scleral icterus ENT: positive: No signs of dehydration Neck: positive: Trachea midline Respiratory: positive: No respiratory distress Abdomen: positive: Soft Skin: positive: Dryness. negative: Rash Extremities: positive: Pedal edema (trace) Neurologic/Psychiatric: positive: Oriented x3, Mood/affect nml, Weakness Palliative Care - POLST Patient has POLST: No POLST Status: Full Code Pain: Pain improved, Location (abdominal), Comment (currently on MS 15 mg TID; to decrease to BID) Tiredness/Fatigue: Severe (7-10) Drowsiness/Sedation: Moderate (4-6) Nausea: Moderate (4-6) Anorexia: Severe (7-10), Weight loss Dyspnea: Moderate (4-6) Depression: None Anxiety: Mild (1-3) Feelings of wellbeing/Perceived Quality of Life: Fair, Improved Sleep: Variable sleep pattern Constipation: Yes, Opoid induced, Managed Performance Status: Patient has been quite sedentary because of the fatigue, but did feel more energetic over the weekend and more participatory. Reports she did go for small walks, encouraged to continue to be active. She is able to manage her ADLs - Palliative Care Discussion: Pattient and are pleased that patient is feeling better, we are going to change up the schedule some for her chemo. She is quite anxious to understand if responding to treatment or not, awaiting first round of scans as would like to make a trip to [place] or consider transitioning for "snowbird" schedule. They do have a home down there, as well as her daughter and grandson. Patient is aware of the seriousness of her illness, is weighing her options in context of quality of life, hoping for the best and prolonged quantity as well. Results - Lab Results Lab results reviewed: Yes Impression and Recommendations - Palliative Care Impression: This is a angel 70-year-old woman with invasive adenocarcinoma of the pancreas with metastatic disease to liver. Her pain is well controlled, continues with persistent anorexia, and persistent fatigue. She is feeling better this week. Rash is resolved, will be restarting her second cycle of treatment today. Palliative care continue provide support for pain and symptom management, psychosocial support and anticipatory guidance. Recommendations/Counseling Done: 1. Pain of neoplastic origin. Patient with no pain currently on morphine extended release, has decreased to 15 mg 3 times daily, had not followed through on second step secondary to feeling poorly day of instructions. We did go over this, will decrease to twice a day did today, and then increase back to 3 times daily if needed. 2. Hypoglycemia. Patient with weight loss, continued decreased intake and low blood sugars in the a.m. Remains at high risk for significant events with blood sugar continue to be low in a.m., had not decrease Lantus to 32 but had added snack in the evening, will do that today decreased to 30 to go will be getting Decadron. Goal again for blood sugar is 90-1 20. Patient verbalized understanding and written instructions provided. 3. Anorexia. Patient continues with persistent anorexia, this is multifactorial. She has been taking the famotidine daily and consistently. This is to maximize effectiveness of the Creon, she is taking Creon 1 with frequent small meals. She does find that if she is feeling slightly nauseated or not hungry, and uses ondansetron she does feel hungry about 30 minutes after medication. She will continue use the strategy for when her appetite is depressed. She does feel like she ate better over the weekend. 4. Lower extremity edema. This is improved somewhat, patient has been instructed on compression, is wearing her diabetic socks and elevation at times. 5. Metastatic pancreatic cancer. Patient's treatment was on hold last week, did meet with oncology and will be getting 2 weeks on, 1 weeks off. Rash did respond to triamcinolone 0.1% ointment, she will start this as soon as/ or if recurs. 6. Advanced care planning. Patient continues to struggle with the seriousness of her illness, continue a benefits and burdens of treatment options. Short- term goals continue to initiate and evaluate response to treatment, awaiting outcomes of first scan before making further long-term goals. We will continue to do some follow through on advanced care planning. 45 minutes with review of oncology notes, labs, coordination of care with oncology team. [id number] with patient in counseling with patient and for symptom management and psychosocial support.
== END 2021-06-16 08:34 | disposition home or self-care (01) ==
LOC: PC 08:33
PROVIDERS: ATTEND Nurse Practitioner Adult Health
DX: Z51.5 Encounter for palliative care (principal); G89.3 Neoplasm related pain (acute) (chronic); C25.9 Malignant neoplasm of pancreas, unspecified; C78.7 Secondary malignant neoplasm of liver and intrahepatic bile duct; R63.0 Anorexia; R53.83 Other fatigue; G62.9 Polyneuropathy, unspecified; I48.91 Unspecified atrial fibrillation; E11.649 Type 2 diabetes mellitus with hypoglycemia without coma; H54.7 Unspecified visual loss; F41.9 Anxiety disorder, unspecified; R21 Rash and other nonspecific skin eruption; Z79.4 Long term (current) use of insulin; Z79.01 Long term (current) use of anticoagulants; Z79.899 Other long term (current) drug therapy
CPT/HCPCS: 99215

== ENCOUNTER 2021-06-23 12:03 | Outpatient (CLI) | payer MEDICARE, OTHER ==
--- NOTE | 2021-06-23 15:11 | CONSULTATION NOTE ---
Palliative Care Follow Up - Referral Referring Provider: Dr. Inna Soni Time of Visit: 1400 30 minutes Referral setting[place] [facility] [place]erral Reason: Pain of neoplastic origin/anxiety/Pancreatic CA with mets - Information Sources Records reviewed: RN notes reviewed, Previous records reviewed History/Review of Systems obtained from: Patient, Family ( Arnav at visit) Exam limitations: No limitations - History of Present Illness Update Brief HPI Update: This is a 70-year-old woman with metastatic pancreatic cancer with mets to liver, is receiving Gemzar and Abraxane. She continues with persistent anorexia, fatigue, but did not have a recurrence of her rash with this last treatment. She continues with improving pain, had decreased her level of pain medication to MS 15 mg extended release to 1 time only. I suspect at this point in time she does not need any further long-acting, encouraged her to stop morphi ne on , and just use the oxycodone for intermittent pain. She did meet with oncology today, both her and her are quite tearful. She is planning hopefully to go visit her daughter and family in [place] over the holidays. The seriousness of her illness I believe is finally coming into focus, as well as the implications regarding this. Patient's Lantus she has been decreasing, she did have high blood sugars with the dexamethasone, but is starting to have lower ones. We did discuss returning to the original recommendation which was 32 units. We discussed also doing this on a regular time., And she is picking mronings. She has noted ondansetron does help her eat better, we reviewed that this does not impact her blood sugars but impacts constipation. Even if she is decreasing her pain medications, she will need to still work with her MiraLAX and senna for regular bowel movements. She does have a pending special education director appointment with Rosaura Mobley in [place]. Past Medical History: Hypertension, high cholesterol, atrial fib currently on Xarelto, peripheral neuropathy baseline from diabetes, type 2 diabetes on insulin, cholecystectomy, EUS upper 04/25, cataracts, tonsil/adenectomy, skin cancer surgery, liver biopsy, Port-A-Cath placement 06/10/2021 Social History - Living Situation Living arrangement: At home Living Situation: With spouse/s.o. Support System: Patient is to her angel Arnav, that he since 1977. They have a daughter and her family in [place], are looking at planning to hopefully go around Thanksgiving and have an extended visit, she has a home down there as well. 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 Medications/Allergies - Medications Home Medications: Ambulatory Orders Medication Instructions Recorded Confirmed Acebutolol HCl 200 mg PO BID 03/30/19 06/24/21 Insulin Glargine [Lantus Solostar] 32 units SUBQ DAILY MDD titrating 05/08/20 06/24/21 Lipase/Protease/Amylase [Lida Stover 1 - 4 cap PO QID MDD with 05/05/21 06/24/21 24,000 Units Capsule] meals/snacks Senna [Senokot] 1 tab PO QPM PRN MDD 6-9 05/05/21 06/24/21 oxyCODONE [Roxicodone] 10 mg PO Q3HR PRN 05/05/21 06/24/21 polyethylene glycoL 3350 [Miralax] 17 gm PO DAILY PRN MDD bid 05/05/21 06/24/21 Cannabidiol (Cbd) [Epidiolex] 25 mg PO BID 05/12/21 06/24/21 Morphine Sulfate ER [Ms Contin] 15 mg PO DAILY MDD titrating down 05/19/21 06/24/21 to dc this w/e Lidocaine/Prilocain 2.5% Cream 5 applic TOP UD #1 gm 05/20/21 06/24/21 [Emla 2.5% Cream] Ondansetron HCl [Zofran] 4 mg PO Q6HR PRN #30 tab 05/20/21 06/24/21 Rivaroxaban [Xarelto] 20 mg PO DAILY 05/20/21 06/24/21 Cyanocobalamin (Vitamin B-12) 1 tab PO DAILY 05/26/21 06/24/21 [Vitamin B-12] Famotidine [Pepcid] 20 mg PO DAILY 05/26/21 06/24/21 Lactobacillus Combination No.4 1 cap PO DAILY 05/26/21 06/24/21 [Probiotic] Triamcinolone 0.1% Oint [Kenalog 1 applic TOP BID PRN 06/16/21 06/24/21 0.1% Oint] - Allergies Allergies/Adverse Reactions: Allergies Allergy/AdvReac Type Severity Reaction Status Date / Time No Known Drug Allergies Allergy Verified 05/26/21 11:22 Review of Systems - Constitutional Constitutional: reports: Fatigue, Poor appetite, Weight loss - Eyes Eyes: reports: Vision loss, Corrective lenses - Ears, Nose & Throat Ears, Nose & Throat: reports: Dry mouth - Cardiovascular Cardiovascular: reports: Irregular heart rate, Decr. exercise tolerance - Respiratory Respiratory: reports: SOB with exertion. denies: SOB at rest - Gastrointestinal Gastrointestinal: reports: Constipation (currently controlled), Bloating, Poor appetite, Early satiety, Other (taste changes). denies: Abdominal pain ( currently controlled), Nausea (but improved appetite with ondansetron) - Musculoskeletal Musculoskeletal: reports: Back pain, Muscle weakness, Assistive devices (uses can) - Integumentary Integumentary: reports: Hair changes (alopecia;) - Neurological Neurological: reports: General weakness, Numbness (baseline peripheral neuropathy in feet), Abnormal gait - Endocrine Endocrine: reports: Diabetes type 2 (Is titrating down;) - Hematologic/Lymphatic Hematologic/Lymph: reports: Anemia (10.3 continues to decrease) - All Other Systems All Other Systems: reports: Reviewed and negative Physical Exam - Vital Signs Pulse Rate: 93 Respiratory Rate: 18 O2 Saturation: 99 Blood Pressure: 139/67 - Physical Exam General Appearance: positive: Alert, Mild distress Eyes Bilateral: positive: No scleral icterus, Other Neck: positive: Trachea midline Respiratory: positive: No respiratory distress Abdomen: positive: Non-tender, Soft, Obese Skin: positive: Pallor, Dryness. negative: Rash Extremities: positive: No pedal edema Neurologic/Psychiatric: positive: Oriented x3, Mood/affect nml, Weakness Palliative Care - POLST Patient has POLST: No POLST Status: Full Code Pain: Pain improved, Location (abdominal), Severity (0/10) Tiredness/Fatigue: Severe (7-10) Drowsiness/Sedation: Moderate (4-6) Nausea: Moderate (4-6) Anorexia: Severe (7-10) Dyspnea: Moderate (4-6) Depression: None Anxiety: None Feelings of wellbeing/Perceived Quality of Life: Good, Acceptable, Improved Sleep: Sleeps well, Sleep improved Constipation: Yes, Opoid induced, Intermittent constipation - Palliative Care Discussion: Have met with oncology, recognize they are just beginning to understand the seriousness of her journey. Are hoping to be able to go visit their grandson, over the holidays. To feel like they are starting to get the hang of this, reviewed information regarding symptom management, addressed questions. Results - Lab Results Lab results reviewed: Yes Lab and Imaging Results: Patient has had a dramatic decrease in her CA 19 to a little over 2500 from 19,000. Impression and Recommendations - Palliative Care Impression: This is a angel 70-year-old woman with invasive adenocarcinoma the pancreas with metastatic disease to liver. Her pain continues to diminish, hopefully reflecting a clinical response. She continues though with persistent anorexia and fatigue. Palliative care continue provide support for pain and symptom management, psychosocial support and anticipatory guidance. Recommendations/Counseling Done: 1. Pain of neoplastic origin. Patient continues with 0 out of 10 pain. We will go ahead and have her stop from her 1 morphine 15 mg extended release to none starting . Encouraged to use oxycodone for breakthrough pain or intermittent pain if needed. We can return to previous regimen if needed, but given her fatigue, and low-grade nausea would benefit being off of the morphine. 2. Hypoglycemia. Patient continues with low blood sugars, again reviewed goal for blood sugars 90-120, patient will take her Lantus on a regular basis in the mornings as it is easier for her to remember. She has decreased to 34 units, will continue to decrease to 32 units in a.m., will continue to monitor. 3. Anorexia. Patient continues with persistent anorexia, this is multifactorial, she has been taking the famotidine daily and consistently to maximize effect of Creon as well as taking her Creon with small frequent meals. She does feel she does eat better when she takes ondansetron, reviewed ondansetron does cause constipation will need to be still vigilant with bowel program. 4. Lower extremity edema. This appears to have resolved currently. 5. Metastatic pancreatic cancer. Patient back on her schedule, no further rash. She is starting to get some pancytopenia, with persistent fatigue. We will continue to follow. 6. Advanced care planning patient continues to struggle with the seriousness of her illness, continues to weigh benefits and burdens of treatment options. Patient does have pending scans, will continue to introduce advanced care planning particular before patient transitions to [place] or travels. 30 minutes with review of labs, oncology note, meeting with patient and [id number], counseling regarding symptom management and anticipatory guidance.
== END 2021-06-23 12:04 | disposition home or self-care (01) ==
LOC: PC 12:03
PROVIDERS: ATTEND Nurse Practitioner Adult Health
DX: Z51.5 Encounter for palliative care (principal); G89.3 Neoplasm related pain (acute) (chronic); C25.9 Malignant neoplasm of pancreas, unspecified; C78.7 Secondary malignant neoplasm of liver and intrahepatic bile duct; R63.0 Anorexia; R53.83 Other fatigue; E11.42 Type 2 diabetes mellitus with diabetic polyneuropathy; Z79.4 Long term (current) use of insulin; I48.91 Unspecified atrial fibrillation; Z79.01 Long term (current) use of anticoagulants; H54.7 Unspecified visual loss; K59.03 Drug induced constipation; T40.605A Adverse effect of unspecified narcotics, initial encounter
CPT/HCPCS: 99214

== ENCOUNTER 2022-01-26 13:54 | Outpatient (CLI) | payer MEDICARE, OTHER ==
--- NOTE | 2022-01-26 16:35 | CONSULTATION NOTE ---
Palliative Care Follow Up - Referral Referring Provider: Dr. Styles Time of Visit: 1500 60 minutes Referral setting: [facility] [place] Referral Reason: Pancreatic Cancer/Peripheral neuropathy/LE edema - Information Sources Records reviewed: Previous records reviewed History/Review of Systems obtained from: Patient, Family ( Arnav) Exam limitations: No limitations - History of Present Illness Update Brief HPI Update: This is a angel 71-year-old woman with metastatic pancreatic cancer with mets to liver, currently receiving Abraxane and Gemzar every 2 weeks. She has had to have treatment adjustments related to pancytopenia, and most recently received pegfilgrastim for her support. Patient has continued to respond clinically, had a bump in CA 19, but today this is down. Had seen her previously April through June with initial diagnosis, she then went on to [place] to be with her daughter and grandson. She is back, is expected to continue treatment, her daughter and grandson are coming here in March. She is very much looking forward to the visit. Patient has been working with a independent study in [place], is currently on back to [facility], [place] for dexamethasone spikes, glimepiride, and has continuous monitoring. She has had some increase in lows lately, referred back to her study to see if the glimepiride should be decreased to 1 tablet. Patient's most significant quality of life issue is for lower extremity edema and worsening peripheral neuropathy, most likely impacted by this. She had been put on duloxetine, with recent increase to 60 mg without any improvement. Patient in agreement to trial and switch over to pregabalin, has been trialed on gabapentin with significant side effects. We will start at low dose, and titrate accordingly if tolerates. Past Medical History: Hypertension, high cholesterol, atrial fibs currently on Xarelto, peripheral neuropathy baseline from diabetes, type 2 diabetes coming off insulin, cholecystectomy, cataracts, Port-A-Cath placement 06/25 Social History - Living Situation Living arrangement: At home Living Situation: With spouse/s.o. Support System: Is to her angel plan, later since 1977. They have a daughter and her family is in [place], she has been down there receiving treatment, split home time in [place] in the winter and [facility] in the summer. She has a grandson Ed who is 18 months, and has been a positive highlight in her life, they are coming in March for a month. 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 Medications/Allergies - Medications Home Medications: Ambulatory Orders Medication Instructions Recorded Confirmed Acebutolol HCl 200 mg PO BID 03/30/19 01/26/22 Lipase/Protease/Amylase [Lida Stover 1 - 4 cap PO BID MDD with 05/05/21 01/26/22 24,000 Units Capsule] meals/snacks Senna [Senokot] 1 tab PO QPM PRN MDD 6-9 05/05/21 01/26/22 oxyCODONE [Roxicodone] 10 mg PO Q3HR PRN 05/05/21 01/26/22 polyethylene glycoL 3350 [Miralax] 17 gm PO DAILY PRN MDD bid 05/05/21 01/26/22 Cannabidiol (Cbd) [Epidiolex] 25 mg PO BID 05/12/21 01/26/22 Rivaroxaban [Xarelto] 20 mg PO DAILY 05/20/21 01/26/22 ondansetron HCL [Zofran] 4 mg PO Q6HR PRN #30 tab 05/20/21 01/26/22 Cyanocobalamin (Vitamin B-12) 2,000 mcg PO DAILY 05/26/21 01/26/22 [Vitamin B-12] Famotidine [Pepcid] 20 mg PO DAILY PRN 05/26/21 01/26/22 Lactobacillus Combination No.4 1 cap PO DAILY 05/26/21 01/26/22 [Probiotic] Benfotiamine 150 mg PO DAILY 12/21/21 01/26/22 DULoxetine [Cymbalta] 30 mg PO DAILY MDD titrating down 12/21/21 01/26/22 Pioglitazone HCl [Actos] 30 mg PO DAILY 12/21/21 01/26/22 Glimepiride 2 mg PO DAILY 01/05/22 01/26/22 Glutamine [Endari] 10 gm PO DAILY 01/05/22 01/26/22 Prochlorperazine [Compazine] 10 mg PO Q6H 01/05/22 01/26/22 Folic Acid 400 mcg PO DAILY 01/26/22 01/26/22 Furosemide [Lasix] 20 mg PO DAILY MDD 20 mg bid x 3 01/26/22 01/26/22 days Insulin Glargine [Lantus Solostar] 8 unit SQ .CHEMO DAYS 1/2 01/26/22 01/26/22 Insulin Lispro [Humalog Kwikpen 2 - 10 units SQ .TITRATING 01/26/22 01/26/22 U-100] Pnv No.95/Ferrous Fum/Folic AC 1 tab PO DAILY 01/26/22 01/26/22 [ Caplet] Pregabalin [Lyrica] 25 mg PO QPM MDD titrating up 01/26/22 01/26/22 slowly - Allergies Allergies/Adverse Reactions: Allergies Allergy/AdvReac Type Severity Reaction Status Date / Time No Known Drug Allergies Allergy Verified 05/26/21 11:22 Review of Systems - Constitutional Constitutional: reports: Fatigue (difficulty with staying awake), Weakness (less active with increase LE edema), Weight gain (7-8 last couple of weeks) - Eyes Eyes: reports: Vision loss, Corrective lenses - Cardiovascular Cardiovascular: reports: Irregular heart rate, Decr. exercise tolerance - Respiratory Respiratory: reports: SOB with exertion. denies: SOB at rest - Gastrointestinal Gastrointestinal: reports: Good appetite, Other. denies: Constipation - Musculoskeletal Musculoskeletal: reports: Back pain, Muscle weakness, Assistive devices (uses can) - Integumentary Integumentary: reports: Rash (LE redness left; no defined area as in cellulits), Hair changes - Neurological Neurological: reports: General weakness, Numbness (baseline peripheral neuropathy in feet but has worsened), Abnormal gait - Psychiatric Psychiatric: reports: Anxiety - Endocrine Endocrine: reports: Diabetes type 2 (Is titrating currently on study) - Hematologic/Lymphatic Hematologic/Lymph: reports: Anemia (11.9 continues to decrease) - All Other Systems All Other Systems: reports: Reviewed and negative Physical Exam - Vital Signs Pulse Rate: 72 Respiratory Rate: 18 Blood Pressure: 132/68 (manual cuff) - Physical Exam General Appearance: positive: No acute distress, Alert Eyes Bilateral: positive: Normal inspection, No scleral icterus ENT: positive: No signs of dehydration Neck: positive: Trachea midline Cardiovascular: positive: Irregular Respiratory: positive: No respiratory distress Abdomen: positive: Non-tender, Soft Skin: positive: Dryness Extremities: positive: Pedal edema (taut and pitting up to knees) Neurologic/Psychiatric: positive: Oriented x3, Mood/affect nml, Weakness Palliative Care - POLST Patient has POLST: No POLST Status: Full Code Pain: Pain worsening (peripheral neuropathy; abdominal/stomach pain resolved) Tiredness/Fatigue: Moderate (4-6) Drowsiness/Sedation: None Nausea: None Anorexia: Mild (1-3) Dyspnea: Moderate (4-6) Depression: None Anxiety: None Feelings of wellbeing/Perceived Quality of Life: Excellent, Acceptable, Improved Sleep: Sleep improved Constipation: Yes, Managed Performance Status: Patient's functional status has declined over the last couple weeks, with increased lower extremity edema and worsening peripheral neuropathy pain. She is quite sedentary, has been more active than she was in [place], is helpful to get her feet better - Palliative Care Discussion: Establishing rapport with patient and , has been in [place] with a series of caregiving issues related to cancer centers. She did in March and had support from acupuncture, though this did not help with her peripheral neuropathy was supported in the context of her supplements and managing overall. She very much enjoys time with her grandson and daughter, who are coming up this summer. She is expecting a visit from her twin sister's. Patient had good mood, does not perceive himself as depressed. Still understands the seriousness of her illness but is feeling much more hopeful and has had good clinical response as well as her numbers are improving. Will explore further ad scott care planning at future visits. Results - Lab Results Lab results reviewed: Yes Impression and Recommendations - Palliative Care Impression: This is a angel 71-year-old woman with invasive adenocarcinoma of the pancreas with metastatic disease to the liver. Patient has continued to improve clinically, is doing well with her blood sugars, but presents today with worsening peripheral neuropathy and lower extremity edema. Patient recently turned from [place], here to be established with palliative care. Palliative care finding support for pain and symptom management and psychosocial support as well as anticipatory guidance. Recommendations/Counseling Done: 1. Peripheral neuropathy. This is multifactorial, unclear recent it for exacerbation, medication she is on should not be increasing it, she does have increased discomfort because of lower extremity edema. Patient has been put on Cymbalta with recent increase without much improvement. Was trialed on gabapentin, felt she had significant side effects from this. Will trial at low doses first to see if patient tolerates pregabalin 25 mg at at bedtime x3 days, and titrate accordingly. Titration schedule mapped out with increase every 3 days. We will have her decrease in Cymbalta 30 mg, and eventually titrate off. 2. Diabetes type 2. Patient on new regimen being followed for clinical study. Patient does have significant number of lows, recommended to decrease glimepiride down by 1 tablet, encouraged to contact or reach out to her diabetic management person. Counseling provided regarding adding protein to diet, and diet strategies. 3. Lower extremity edema. Patient presents with worsening lower extremity pitting edema, as well as a 7-8 pound weight gain. Will initiate furosemide 20 mg twice daily x3 days, then 20 mg daily. We will see patient in 2 weeks and titrate further, and evaluate if need to add potassium or not. 4. Metastatic pancreatic cancer. Patient is on her schedule, is doing fairly well. She did have some significant pancytopenia. We will continue to follow, patient is a quite she has other options according to oncology note. Patient continues to demonstrate clinical as well as tumor marker response to treatment. 5. Advanced care planning. I plan to revisit patient's goals of care, today's visit was to establish rapport again, as well as update. I will continue to introduce advance care planning in the context of anticipatory guidance. 60 minutes review of oncology notes, labs, coordination of care with oncology team, counseling for pain and symptom management and anticipatory guidance.
== END 2022-01-26 13:55 | disposition home or self-care (01) ==
LOC: PC 13:54
PROVIDERS: ATTEND Nurse Practitioner Adult Health
DX: Z51.5 Encounter for palliative care (principal); E11.42 Type 2 diabetes mellitus with diabetic polyneuropathy; E11.649 Type 2 diabetes mellitus with hypoglycemia without coma; R60.0 Localized edema; R63.5 Abnormal weight gain; C78.7 Secondary malignant neoplasm of liver and intrahepatic bile duct; C25.9 Malignant neoplasm of pancreas, unspecified; I48.91 Unspecified atrial fibrillation; Z79.4 Long term (current) use of insulin; Z79.01 Long term (current) use of anticoagulants; Z79.899 Other long term (current) drug therapy; Z79.84 Long term (current) use of oral hypoglycemic drugs; R53.83 Other fatigue; R53.1 Weakness; R06.09 Other forms of dyspnea
CPT/HCPCS: 99215

== ENCOUNTER 2022-06-28 10:01 | Outpatient (CLI) | payer MEDICARE, OTHER ==
[2022-06-28 10:41] LABS: THYROID STIMULATING HORMONE 1.16 uIU/mL (0.34-5.60)
[2022-06-28 13:43] LABS: ESTIMATED AVERAGE GLUCOSE 186 mg/dL (70-100); HEMOGLOBIN A1c% 8.1 % (4.27-6.07)
== END 2022-06-28 10:02 | disposition home or self-care (01) ==
LOC: LAB 10:01
PROVIDERS: ATTEND Nurse Practitioner
DX: E11.9 Type 2 diabetes mellitus without complications (principal); C25.9 Malignant neoplasm of pancreas, unspecified
CPT/HCPCS: 36415; 83036; 84443

== ENCOUNTER 2023-01-11 09:33 | Inpatient (IN) | payer MEDICARE, OTHER ==
[2023-01-11] MEDS ORDERED: SODIUM CHLORIDE 0.9% 1,000 ML IV STA (09:45)
--- NOTE | 2023-01-11 09:47 | ED Physician Documentation ---
History of Present Illness - Stated complaint Stated Complaint: WEAKNESS - Additonal information Additional information: Patient 72-year-old female presenting to the emergency department with generalized weakness and diarrhea.Reports chronic diarrhea that has been waxing and waning for several years. Known history of stage IV pancreatic cancer on multiple chemotherapeutic agents including 5-FU and I wrote pectin. Recently received course ciprofloxacin for presumed infectious diarrhea. Additionally has history of C. difficile. Denies chest or abdominal pain associated with her symptoms. Today was on her way to see her oncologist and found herself too weak to stand. EMS reported systolics in the 80s on arrival. Review of Systems Constitutional: reports: Fatigue. denies: Fever Eyes: denies: Loss of vision Ears: denies: Loss of hearing Nose: denies: Rhinorrhea / runny nose Throat: denies: Dental pain / toothache Cardiac: denies: Chest pain / pressure Respiratory: denies: Dyspnea GI: reports: Diarrhea. denies: Abdominal Pain, Nausea, Vomiting : denies: Dysuria PD PAST MEDICAL HISTORY - Past Medical History Cardiovascular: Hypertension, High cholesterol, Atrial fibrillation (on xarelto, last took 06/08) Respiratory: None Neuro: Peripheral neuropathy Endocrine/Autoimmune: Type 2 diabetes BOOK CUTTER: None HEENT: Chronic vision loss - Past Surgical History Past Surgical History: Yes General: Cholecystectomy, Other HEENT: Cataracts, Tonsil/Adenoidectomy Derm: Skin cancer surgery - Present Medications Home Medications: Ambulatory Orders Medication Instructions Recorded Confirmed Lipase/Protease/Amylase [Lida Stover 1 - 4 cap PO BID MDD with 05/05/21 01/11/23 24,000 Units Capsule] meals/snacks Cannabidiol (Cbd) [Epidiolex] 25 mg PO BID 05/12/21 01/11/23 Rivaroxaban [Xarelto] 20 mg PO DAILY 05/20/21 01/11/23 Glimepiride 4 mg PO BID 01/05/22 01/11/23 Insulin Glargine [Lantus Solostar] 10 unit SQ .CHEMO DAYS 01/26/22 01/11/23 Insulin Lispro [Humalog Kwikpen 2 - 10 units SQ .TITRATING 01/26/22 01/11/23 U-100] Sacubitril/Valsartan [Entresto 24 1 each PO BID 04/27/22 01/11/23 mg-26 mg Tablet] Alpha Lipoic Acid 300 mg PO BID 12/17/22 01/11/23 activated charcoaL [Charcoal] 200 mg PO UD 12/17/22 01/11/23 Empagliflozin [Jardiance] 1 tab PO DAILY 01/11/23 01/11/23 Metoprolol Succinate [Toprol Xl] 3 tab PO DAILY 01/11/23 01/11/23 Opium Tincture 0.6 ml PO QID PRN 01/11/23 01/11/23 Spironolactone [Aldactone] 1 tab PO DAILY 01/11/23 01/11/23 - Allergies Allergies/Adverse Reactions: Allergies Allergy/AdvReac Type Severity Reaction Status Date / Time No Known Drug Allergies Allergy Verified 05/26/21 11:22 - Social History Does the pt smoke?: No Smoking Status: Former smoker Does the pt drink ETOH?: No Does the pt have substance abuse?: No - POLST Patient has POLST: No PD ED PE NORMAL - Vitals Vital signs reviewed: Yes (Patient tachycardic, systolic of 89 on arrival. Generally ill-appearing.) - General General: Alert and oriented X 3 - HEENT HEENT: Atraumatic, PERRL, EOMI, Ears normal, Pharynx benign, Other (Dry mucous membranes) - Neck Neck: Supple, no meningeal sign, No bony TTP, No adenopathy, Thyroid normal, No JVD - Cardiac Cardiac: RRR, No murmur, No gallop, No rub, Strong equal pulses - Respiratory Respiratory: No respiratory distress, Clear bilaterally - Abdomen Abdomen: Normal bowel sounds, Soft, Non tender, Non distended - Female Female : Deferred, Pt declined - Rectal Rectal: Deferred - Derm Derm: Normal color - Extremities Extremities: No deformity - Neuro Neuro: Alert and oriented X 3, chief psychology 2-12 intact, No motor deficit, No sensory deficit, Normal speech Results - Vitals Vitals: Oxygen O2 Source Room air - EKG (time done) 1013 EKG releavant findings:: EKG personally interpreted by author of this note. Relevant findings are: Atrial fibrillation for at 129 bpm. Normal axis. Left bundle branch block morphology. No concordant ST segment elevations, concordant ST segment depress ions or excessive discordance. No previous EKG available for comparison. 1255 EKG releavant findings:: EKG personally interpreted by author of this note. Relevant findings are: Atrial fibrillation with rate 109 bpm. Left axis deviation. Left bundle branch block. No concordant ST segment elevations, concordant ST segment depressions or excessive discordance in any lead. No significant change from previous. - Labs Labs: Microbiology 01/11/23 10:49 Blood Culture - Preliminary Blood - Right Hand NO GROWTH AFTER 1 DAY Laboratory Tests 01/11/23 01/11/23 01/11/23 10:08 10:08 10:08 WBC 18.4 H RBC 4.13 L Hgb 13.8 Hct 41.9 MCV 101.5 H MCH 33.4 H MCHC 32.9 RDW 17.0 H Plt Count 208 MPV 11.1 H Neut # (Auto) Not Reportable Lymph # (Auto) Not Reportable Red Willow # (Auto) Not Reportable Eos # (Auto) Not Reportable Baso # (Auto) Not Reportable Absolute Nucleated RBC Not Reportable Total Counted 100 Band Neuts % (Manual) 14 H Reactive Lymphs % (Man) 3 Abnorm Lymph % (Manual) 0 Myelocytes % 1 H Nucleated RBC % Not Reportable Neutrophils # (Manual) 14.4 H Lymphocytes # (Manual) 1.7 Monocytes # (Manual) 2.2 H Eosinophils # (Manual) 0.0 Basophils # (Manual) 0.0 Differential Comment MANUAL DIFFERENTIAL Manual Slide Review Indicated PT 13.4 H INR 1.2 Sodium 143 Potassium 2.3 L* Chloride 120 H* Carbon Dioxide 7 L* Anion Gap 16.0 H BUN 39 H Creatinine 3.4 H Estimated GFR (MDRD) 13 L Glucose 170 H Lactic Acid Calcium 8.4 L Magnesium 2.0 Total Bilirubin 0.8 AST 15 ALT 20 Alkaline Phosphatase 148 H Total Creatine Kinase 43 Troponin I High Sens Total Protein 6.0 L Albumin 3.6 Globulin 2.4 Albumin/Globulin Ratio 1.5 Lipase 30 TSH Nasal Adenovirus (PCR) Nasal B. parapertussis DNA (PCR) Nasal Coronavir 229E PCR Nasal Coronavir HKU1 PCR Nasal Coronavir NL63 PCR Nasal Coronavir OC43 PCR Nasal Enterovir/Rhinovir PCR Nasal Influenza B PCR Nasal Influenza A PCR Nasal Parainfluen 1 PCR Nasal Parainfluen 2 PCR Nasal Parainfluen 3 PCR Nasal Parainfluen 4 PCR Nasal RSV (PCR) Nasal B.pertussis DNA PCR Nasal C.pneumoniae (PCR) Ariel Human Metapneumo PCR Nasal M.pneumoniae (PCR) Nasal SARS-CoV-2 (PCR) 01/11/23 01/11/23 01/11/23 10:08 10:08 10:08 WBC RBC Hgb Hct MCV MCH MCHC RDW Plt Count MPV Neut # (Auto) Lymph # (Auto) Red Willow # (Auto) Eos # (Auto) Baso # (Auto) Absolute Nucleated RBC Total Counted Band Neuts % (Manual) Reactive Lymphs % (Man) Abnorm Lymph % (Manual) Myelocytes % Nucleated RBC % Neutrophils # (Manual) Lymphocytes # (Manual) Monocytes # (Manual) Eosinophils # (Manual) Basophils # (Manual) Differential Comment Manual Slide Review PT INR Sodium Potassium Chloride Carbon Dioxide Anion Gap BUN Creatinine Estimated GFR (MDRD) Glucose Lactic Acid 2.0 Calcium Magnesium Total Bilirubin AST ALT Alkaline Phosphatase Total Creatine Kinase Troponin I High Sens 29.0 H* Total Protein Albumin Globulin Albumin/Globulin Ratio Lipase TSH 1.00 Nasal Adenovirus (PCR) Nasal B. parapertussis DNA (PCR) Nasal Coronavir 229E PCR Nasal Coronavir HKU1 PCR Nasal Coronavir NL63 PCR Nasal Coronavir OC43 PCR Nasal Enterovir/Rhinovir PCR Nasal Influenza B PCR Nasal Influenza A PCR Nasal Parainfluen 1 PCR Nasal Parainfluen 2 PCR Nasal Parainfluen 3 PCR Nasal Parainfluen 4 PCR Nasal RSV (PCR) Nasal B.pertussis DNA PCR Nasal C.pneumoniae (PCR) Ariel Human Metapneumo PCR Nasal M.pneumoniae (PCR) Nasal SARS-CoV-2 (PCR) 01/11/23 10:08 WBC RBC Hgb Hct MCV MCH MCHC RDW Plt Count MPV Neut # (Auto) Lymph # (Auto) [place]ow # (Auto) Eos # (Auto) Baso # (Auto) Absolute Nucleated RBC Total Counted Band Neuts % (Manual) Reactive Lymphs % (Man) Abnorm Lymph % (Manual) Myelocytes % Nucleated RBC % Neutrophils # (Manual) Lymphocytes # (Manual) Monocytes # (Manual) Eosinophils # (Manual) Basophils # (Manual) Differential Comment Manual Slide Review PT INR Sodium Potassium Chloride Carbon Dioxide Anion Gap BUN Creatinine Estimated GFR (MDRD) Glucose Lactic Acid Calcium Magnesium Total Bilirubin AST ALT Alkaline Phosphatase Total Creatine Kinase Troponin I High Sens Total Protein Albumin Globulin Albumin/Globulin Ratio Lipase TSH Nasal Adenovirus (PCR) NOT DETECTED Nasal B. parapertussis DNA (PCR) NOT DETECTED Nasal Coronavir 229E PCR NOT DETECTED Nasal Coronavir HKU1 PCR NOT DETECTED Nasal Coronavir NL63 PCR NOT DETECTED Nasal Coronavir OC43 PCR NOT DETECTED Nasal Enterovir/Rhinovir PCR NOT DETECTED Nasal Influenza B PCR NOT DETECTED Nasal Influenza A PCR NOT DETECTED Nasal Parainfluen 1 PCR NOT DETECTED Nasal Parainfluen 2 PCR NOT DETECTED Nasal Parainfluen 3 PCR NOT DETECTED Nasal Parainfluen 4 PCR NOT DETECTED Nasal RSV (PCR) NOT DETECTED Nasal B.pertussis DNA PCR NOT DETECTED Nasal C.pneumoniae (PCR) NOT DETECTED Ariel Human Metapneumo PCR NOT DETECTED Nasal M.pneumoniae (PCR) NOT DETECTED Nasal SARS-CoV-2 (PCR) NOT DETECTED PD Medical Decision Making - ED course Complexity details: reviewed results, re-evaluated patient, considered differential, d/w patient, d/w tour consultant ED course: Patient 72-year-old female presenting to the emergency department with hypoten diana, tachycardia, generalized weakness in known setting of stage IV pancreatic cancer on active chemotherapy. Tachycardic with systolic of 89 on arrival. IV access was obtained. A 2 L of IV hydration administered with significant improvement in both tachycardia as well as blood pressure. EKGs performed demonstrated persistent atrial fibrillation with left bundle branch block. Patient denied chest pain.Did have a very mild elevation in high- sensitivity troponin, likely secondary to rate related ischemia/type II NSTEMI. Notably had a significant leukocytosis as well as a critically low potassium, and acute renal failure. Magnesium repletion initiated empirically and potassium repletion initiated with both IV and oral agents. Given patient's presentation I did order for blood cultures which are pending. Additionally I gave 1 g Rocephin empirically although the time of its administration no clear infectious source has been identified. CT scans demonstrated findings consistent with enteritis without acute intra- abdominal pathology. At this time urine analysis is pending. Care discussed with the hospitalist service who graciously agreed to hospitalize the patient for further evaluation and treatment. - Critical Care Time(min): 31 Time Includes: Direct patient care, Review records, Reassess patient Data interpretation: Labs, Prior EKG, Cardiac output, See progress note Departure - Departure Disposition: 66 [facility] DC/Xfer Clinical Impression: Hypokalemia, Elevated troponin Acute renal failure Qualifiers: Acute renal failure type: unspecified Qualified Code(s): N17.9 - Acute kidney failure, unspecified Diarrhea Qualifiers: Diarrhea type: unspecified type Qualified Code(s): R19.7 - Diarrhea, unspecified Discharge Date/Time: 01/11/23 14:07
[2023-01-11 10:12] LABS: BASOPHILS % (AUTO) 0.9 %; EOSINOPHILS % (AUTO) 0.1 %; HCT - HEMATOCRIT 41.9 % (37.0-47.0); HGB - HEMOGLOBIN 13.8 g/dL (12.0-16.0); LYMPHOCYTES % (AUTO) 6.9 %; MEAN CORPUSCULAR HEMOGLOBIN 33.4 pg (27.0-31.0); MEAN CORPUSCULAR HGB CONC 32.9 g/dL (32.0-36.0); MEAN CORPUSCULAR VOLUME 101.5 fL (81.0-99.0); MEAN PLATELET VOLUME 11.1 fL (7.9-10.8); MONOCYTES % (AUTO) 6.7 %; NEUTROPHILS % (AUTO) 82.3 %; PLT - PLATELET COUNT 208 10^3/uL (130-450); RED BLOOD COUNT 4.13 10^6/uL (4.20-5.40); WHITE BLOOD COUNT 18.4 x10^3/uL (4.8-10.8)
[2023-01-11 10:13] LABS: SLIDE REVIEW? Indicated
[2023-01-11 10:21] LABS: INR 1.2 (0.8-1.2); PT - PROTHROMBIN TIME 13.4 secs (9.9-12.6)
[2023-01-11 10:27] LABS: ABNORMAL LYMPHS % (MANUAL) 0 %
[2023-01-11 10:32] LABS: ALBUMIN 3.6 g/dL (3.2-5.5); ALBUMIN/GLOBULIN RATIO 1.5 (1.0-2.2); BILIRUBIN,TOTAL 0.8 mg/dL (0.2-1.0); CALCIUM 8.4 mg/dL (8.5-10.3); CREATININE 3.4 mg/dL (0.4-1.0)
[2023-01-11 10:35] LABS: POTASSIUM 2.3 mmol/L (3.5-5.0)
[2023-01-11 10:36] LABS: BAND NEUTROPHILS % (MANUAL) 14 %; DIFFERENTIAL COMMENT MANUAL DIFFERENTIAL; LYMPHOCYTES # (MANUAL) 1.7 10^3/uL (1.5-3.5); LYMPHOCYTES % (MANUAL) 6 %; MONOCYTES # (MANUAL) 2.2 10^3/uL (0.0-1.0); MYELOCYTES % (MANUAL) 1 %; NEUTROPHILS # (MANUAL) 14.4 10^3/uL (1.5-6.6); REACTIVE LYMPHS % (MANUAL) 3 %
[2023-01-11] MEDS ORDERED: POTASSIUM CHLOR 10 MEQ/100 ML 10 MEQ/100 ML BAG IV STA (11:06)
[2023-01-11] MEDS ORDERED: MAGNESIUM SULFATE 2 GRAM 2 GM/50 ML BAG IV ONE (11:07)
[2023-01-11] MEDS ORDERED: cefTRIAXone 1 GM in SODIUM CHLORIDE 0.9% MINIBAG 100 ML IV STA (11:09)
[2023-01-11 11:17] LABS: B. PARAPERTUSSIS- RESP PCR PAN NOT DETECTED; B. PERTUSSIS- RESP PCR PANEL NOT DETECTED; C. PNEUMONIAE- RESP PCR PANEL NOT DETECTED; CORONAVIRUS 229E-RESP PCR NOT DETECTED; CORONAVIRUS HKU1-RESP PCR NOT DETECTED; CORONAVIRUS NL63-RESP PCR NOT DETECTED; CORONAVIRUS OC43-RESP PCR NOT DETECTED; HUMAN METAPNEUMOVIRUS NOT DETECTED; INFLUENZA A- RESP PCR PANEL NOT DETECTED; INFLUENZA B - RESP PCR PANEL NOT DETECTED; M. PNEUMONIAE- RESP PCR PANEL NOT DETECTED; PARAINFLUENZA VIRUS 1 NOT DETECTED; PARAINFLUENZA VIRUS 2 NOT DETECTED; PARAINFLUENZA VIRUS 3 NOT DETECTED; PARAINFLUENZA VIRUS 4 NOT DETECTED; RHINOVIRUS/ENTEROVIRUS NOT DETECTED; RSV- RESP PCR PANEL NOT DETECTED; SARS-CoV-2 -RESP PCR PANEL NOT DETECTED
--- NOTE | 2023-01-11 11:51 | CT Report ---
PROCEDURE: CHEST WO INDICATIONS: Shock TECHNIQUE: Noncontrast 1mm axial images were acquired from the pulmonary apices to the posterior costophrenic an gles. Axial 5 mm soft tissue kernel reconstructions were performed as well as 8 mm axial MIP and cor onal and sagittal 5 mm reformations. For radiation dose reduction, the following was used: automate d exposure control, adjustment of mA and/or kV according to patient size. COMPARISON: 12/20/2022 CT examination FINDINGS: Image quality: Excellent. Lungs and pleura: No consolidation. No pleural effusions. No pneumothorax. No suspicious pulmonary n odules which require follow up. Mediastinum: Heart size is enlarged. No pericardial effusions. No mediastinal adenopathy by size crit eria. No large vessel abnormality. Chest wall and lower neck: Exophytic mass presenting inferiorly from the left thyroid is present, as before, currently measuring roughly 20 mm diameter. No axillary or supraclavicular adenopathy by size . Bones: No aggressive osseous abnormality. Upper Abdomen: Unremarkable. IMPRESSION: 1. No acute process. 2. Cardiomegaly. Reviewed by: Jalyn Ordoñez MD on 01/11/2023 11:50 AM PDT Approved by: Jalyn Ordoñez MD on 01/11/2023 11:50 AM PDT Station ID: [id number]
--- NOTE | 2023-01-11 11:54 | CT Report ---
PROCEDURE: ABDOMEN/PELVIS WO INDICATIONS: Shock TECHNIQUE: Noncontrast 5 mm thick sections acquired from the diaphragms to the symphysis. 5 mm coronal and sagi ttal reformats were then performed. For radiation dose reduction, the following was used: automated exposure control, adjustment of mA and/or kV according to patient size. COMPARISON: 12/20/2022. FINDINGS: Image quality: Degraded by motion artifact. Lung bases and heart: Cardiomegaly. Liver: Previously seen left hepatic lobe mass is not well seen secondary to motion artifact. Gallbladder and biliary tree: Cholecystectomy clips. No definite biliary ductal dilatation. Spleen: No splenomegaly. Pancreas: No pancreatic ductal dilation. Adrenals: No adrenal nodule. Kidneys and ureters: No hydronephrosis. No renal cystic lesion which requires follow up. No solid mas s. Bowel and peritoneum: No bowel distension. No pathologic free fluid. Fluid-filled small and large bow el loops are present. Appendix not seen. No evidence of appendicitis. Lymph nodes: No central or retroperitoneal adenopathy. Vessels: No infrarenal aortic aneurysm. PELVIS Reproductive organs: No change in cystic right ovarian mass. Bladder: No abnormal wall thickening, accounting for underdistension. Pelvic lymph nodes: No pelvic adenopathy by size criteria. Bones: No aggressive osseous abnormality. Other: No significant ventral or inguinal hernia. IMPRESSION: 1. Fluid-filled small and large bowel loops, possibly indicating gastroenteritis. 2. Appendix not seen. No evidence of appendicitis. 3. Left hepatic lobe mass is not seen. 4. No change in right ovarian mass. Reviewed by: Jalyn Ordoñez MD on 01/11/2023 11:52 AM PDT Approved by: Jalyn Ordoñez MD on 01/11/2023 11:52 AM PDT Station ID: [id number]
[2023-01-11] MEDS ORDERED: ACETAMINOPHEN 325 MG TABLET PO PRN (12:28)
[2023-01-11] MEDS ORDERED: ONDANSETRON ODT 4 MG TABLET TL PRN (12:28)
[2023-01-11] MEDS ORDERED: ONDANSETRON 4 MG/2 ML VIAL IVP PRN (12:28)
[2023-01-11] MEDS ORDERED: POTASSIUM CHLORIDE INJ 20 MEQ in DEXTROSE 5%-0.9% NACL 1,000 ML IV SCH (13:00)
[2023-01-11 13:09] LABS: BILIRUBIN,URINE NEGATIVE (NEGATIVE); CLARITY,URINE CLEAR (CLEAR); GLUCOSE, URINE (UA) NEGATIVE (NEGATIVE); KETONES,URINE (UA) NEGATIVE (NEGATIVE); LEUKOCYTE ESTERASE, URINE NEGATIVE (NEGATIVE); NITRITE,URINE NEGATIVE (NEGATIVE); OCCULT BLOOD,URINE NEGATIVE (NEGATIVE); PROTEIN,URINE TRACE mg/dL (NEGATIVE); UROBILINOGEN,URINE 0.2 (NORMAL) E.U./dL (NORMAL)
[2023-01-11] MEDS: D5NS W/20 MEQ KCL 1,000 ML IV SCH (13:46)
--- NOTE | 2023-01-11 14:07 | HISTORY & PHYSICAL EXAMINATION ---
Chief Complaint - Chief Complaint Chief Complaint: Weakness History of Present Illness - Admitted From Admitted From:: ED - History Obtained From Records Reviewed: Yes History obtained from: [facility] Review and patient - History of Present Illness HPI Comment/Other: This patient is a 72 yo female with a history of pancreatic cancer with metastasis to the liver, HFrEF (20-30%), hypertension, hypercholesterolemia, atrial fibrillation on anticoagulation, left bundle branch block, peripheral neuropathy secondary to chemotherapy, Type II diabetes mellitus, and skin cancer who presents to the ED with complaints of generalized weakness for the past 7-10 days. She was on abraxane and gencitabine from 2020 to Jul 2022 with minimal tumor response, and then she was changed to FOLFIRI which reduced tumor antigens and decreased mass size. She states that she has had generalized weakness for awhile since starting chemotherapy, but it has gotten worse to the point where she needed to use a walker 10 days ago, and then using a wheelchair 5 days ago. She was using the wheelchair to go from the bed to the bathroom, and then was sleeping most of the days. She has almost no feeling left in her feet, so this also makes it harder to get around. She was also treated for a UTI with Cipro from 12/20 to 12/27, during and after which she was having profound diarrhea that resolved about four days ago. She states that she's lost weight over the last few weeks, especially since she has had "no appetite" since the diarrhea started. 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 History - Past Medical History Cardiovascular: reports: Congestive heart failure (EF 20-30%, last Echo April 2022), Hypertension, High cholesterol, Atrial fibrillation Respiratory: reports: None Neuro: reports: Peripheral neuropathy Endocrine/Autoimmune: reports: Type 2 diabetes DOUBLE NEEDLE STITCHER: reports: None HEENT: reports: Chronic vision loss MRSA Hx?: No - Past Surgical History General: reports: Cholecystectomy, Other HEENT: reports: Cataracts, Tonsil/Adenoidectomy Derm: reports: Skin cancer surgery - Family & Social History Family History: Mother: , Alzheimer's Disease, Father: , CAD, Sister: Alive and Well Living Situation: With spouse/s.o. - Substance History Use: Uses substance without health or social issues: Alcohol Abuse: Recurrent use of substance despite neg consequences: NONE Dependence: Experiences withdrawal or developed tolerances: NONE Tobacco Details: Other (Previous smoker (quit in 1984)) - POLST Patient has POLST: No Meds/Allgy - Home Medications Home Medications: Ambulatory Orders Medication Instructions Recorded Confirmed Lipase/Protease/Amylase [Lida Stover 1 - 4 cap PO BID MDD with 05/05/21 01/11/23 24,000 Units Capsule] meals/snacks Cannabidiol (Cbd) [Epidiolex] 25 mg PO BID 05/12/21 01/11/23 Rivaroxaban [Xarelto] 20 mg PO DAILY 05/20/21 01/11/23 Glimepiride 4 mg PO BID 01/05/22 01/11/23 Insulin Glargine [Lantus Solostar] 10 unit SQ .CHEMO DAYS 01/26/22 01/11/23 Insulin Lispro [Humalog Kwikpen 2 - 10 units SQ .TITRATING 01/26/22 01/11/23 U-100] Sacubitril/Valsartan [Entresto 24 1 each PO BID 04/27/22 01/11/23 mg-26 mg Tablet] Alpha Lipoic Acid 300 mg PO BID 12/17/22 01/11/23 activated charcoaL [Charcoal] 200 mg PO UD 12/17/22 01/11/23 Empagliflozin [Jardiance] 1 tab PO DAILY 01/11/23 01/11/23 Metoprolol Succinate [Toprol Xl] 3 tab PO DAILY 01/11/23 01/11/23 Spironolactone [Aldactone] 1 tab PO DAILY 01/11/23 01/11/23 - Allergies Allergies/Adverse Reactions: Allergies Allergy/AdvReac Type Severity Reaction Status Date / Time No Known Drug Allergies Allergy Verified 05/26/21 11:22 Review of Systems - Constitutional Constitutional: reports: Fatigue, Malaise, Weakness, Poor appetite, Weight loss. denies: Fever, Chills, Diaphoresis, Night sweats - Eyes Eyes: reports: Vision loss (Chronic). denies: Amaurosis, Blurred vision, Spots in vision - Ears, Nose & Throat Ears, Nose & Throat: reports: Hearing loss, Nasal discharge. denies: Tinnitus, Vertigo, Sore throat, Hoarseness - Cardiovascular Cariovascular: reports: Irregular heart rate, Lightheadedness, Exertional dyspnea, Decr. exercise tolerance. denies: Palpitations, Chest pain, Edema - Respiratory Respiratory: reports: SOB with exertion. denies: Cough, Sputum production, Wheezing, Snoring, SOB at rest, Pleuritic pain - Gastrointestinal Gastrointestinal: reports: Diarrhea (Chronic her whole life, worsened with FOLFIRI), Poor appetite. denies: Abdominal pain, Abdominal distention, Constipation, Change in bowel habits, Nausea, Vomiting - Genitourinary Genitourinary: denies: Dysuria, Frequency, Urgency, Hematuria, Incontinence, Flank pain - Musculoskeletal Musculoskeletal: reports: Muscle weakness. denies: Muscle pain, Back pain, Muscle aches, Stiffness, Joint pain - Integumentary Integumentary: reports: Dryness. denies: Rash, Pruritis, Nail changes - Neurological Neurological: reports: General weakness, Numbness (Bilateral feet and up to her knees per patient) - Psychiatric Psychiatric: denies: Depression, Anxiety - Endocrine Endocrine: denies: Polyuria, Polydypsia, Polyphagia Exam - Vital Signs Reviewed Vital Signs: Yes Vital Signs: Vital Signs x48h Temp Pulse Resp BP Pulse Ox 01/11/23 12:23 67 18 124/80 98 01/11/23 10:22 122 H 24 88/61 L 100 01/11/23 09:35 36.9 C 111 H 26 H 89/64 L 100 - Physical Exam General Appearance: positive: Mild distress (Very weak, dehydrated), Lethargic Eyes Bilateral: positive: Normal inspection, PERRL, EOMI ENT: positive: ENT inspection nml, Dry mucous membranes Neck: positive: Nml inspection, Trachea midline Respiratory: positive: Breath sounds nml Cardiovascular: positive: Irregularly irregular (Afib) Peripheral Pulses: positive: 1+ Abdomen: positive: Non-tender, Nml bowel sounds, No distention Skin: positive: Color nml, Dry Extremities: positive: Non-tender, Nml appearance Neurologic/Psychiatric: positive: Oriented x3, Weakness Conclusion/Plan - Problem List (1) Dehydration Conclusion/Plan: 01/11: Patient and report diarrhea for several weeks that has resolved in the last few days. She states that when the diarrhea started, she had begun Cipro for a UTI. She also complained of zero appetite and has only been eating a few bites of food at each meal and not drinking much fluids. All labs reviewed. K was 2.3 on admission. Renal function tests on admission reveal BUN 39 and creatinine 3.4. eGFR is 13. Her baseline creatinine runs around 0.7-0.9. Plan: Admit patient to inpatient status because of severe electrolyte abnormalities and decreased PO intake. PRN loperamide ordered. Send off stool sample to test for C Diff. Encourage PO intake. Start D5NS with 20 mEq KCl. Strict I&Os. (2) Hypokalemia 01/11: Patient had a K of 2.3 in the ED on admission. 10 mEq IV given in the ED. Plan: Daily BMPs. Start D5NS with 20 mEq KCl. (3) Acute renal failure 01/11: Renal function tests on admission reveal BUN 39 and creatinine 3.4. eGFR is 13. Her baseline creatinine runs around 0.7-0.9. Plan: Daily BMPs. Strict I&Os. (4) Congestive heart failure 01/11: Her last Echo was performed in April 2022 which revealed an EF of 20-30%. She states that they gave her "a lot of diuretics" and she has lost about 80 pounds since then. She is currently taking spironolactone. Troponin around 1000 was 29, then at 1245 it was 25.6. Since it is trending down, this is most likely due to demand ischemia rather than an NSTEMI. I've thought about fluid restriction, but given her dehydration and hypotension, I'm holding off for now. Plan: Strict I&Os. Daily BMPs. Hold spironalactone. (5) Diarrhea 01/11: Patient and report diarrhea for several weeks that has resolved in the last few days. She states that when the diarrhea started, she had begun Cipro for a UTI (completed 12/20-12/27). Plan: PRN loperamide ordered. Send off stool sample to test for C Diff. Encourage PO intake. (6) Decreased appetite 01/11: Patient complains of zero appetite and has only been eating a few bites of food at each meal and not drinking much fluids. Plan: Encourage PO intake. Start D5NS with 20 mEq KCl. (7) Atrial fibrillation 01/11: Patient has rate controlled Afib and is on anticoagulation. She takes metoprolol and Xarelto. She also has a chronic LBBB. Plan: Continue metoprolol and Xarelto. (8) Pancreatic cancer 01/11: Has been getting treated for cancer since 2020. She was on abraxane and gencitabine from 2020 to Jul 2022 with minimal tumor response, and then she was changed to FOLFIRI which reduced tumor antigens and decreased mass size. She is also taking pancreatic enzymes. Plan: Continue pancreatic enzymes. (9) Diabetes mellitus 01/11: Patient takes Jardience and insulin lispro and glargine for her diabetes. Currently she is not taking in much PO. Plan: Blood sugar checks. Hold Jardience. Hold glargine until she is taking in more PO. Start sliding scale insulin for coverage. Carb-controlled diet. (10) Hypertension 01/11: Patient takes Entresto for her hypertension. Plan: Given her hypotension, hold her Entresto. - Lab Results Fish Bones: 01/11/23 10:08 01/11/23 15:34
[2023-01-11] MEDS: POTASSIUM CHLORIDE 20 MEQ/15 ML UDC PO SCH (14:37)
[2023-01-11 15:50] LABS: CALCIUM 7.9 mg/dL (8.5-10.3); CREATININE 2.9 mg/dL (0.4-1.0); MAGNESIUM 2.1 mg/dL (1.7-2.8); POTASSIUM 2.6 mmol/L (3.5-5.0)
[2023-01-11] MEDS ORDERED: OCTREOTIDE 100 MCG/ML VIAL SUBQ SCH (16:00)
[2023-01-11] MEDS ORDERED: SODIUM CHLORIDE 0.9% 1,000 ML IV ONE (16:15)
[2023-01-11] MEDS: INSULIN LISPRO 300 UNIT/3 ML PEN SUBQ SCH ×2 (17:23→20:57)
[2023-01-11] MEDS: SODIUM CHLORIDE FLUSH 0.9% 10 ML SYRINGE IVP SCH ×2 (17:23→23:45)
[2023-01-11] MEDS ORDERED: iohexoL-300 100 ML VIAL ONE (17:56)
--- NOTE | 2023-01-11 18:19 | PHARMACY PROGRESS NOTE ---
- Best Possible Medication History Admit Date and Time: 01/11/23 1228 Processed by: Pharmacy Medication History completed: Yes Patient Interview: Pt unable to participate (SPOKE TO PT'S ) Secondary Source(s): Spouse/Significant other, Pharmacy records As the person ultimately responsible for medication therapy, providers are able to order a medication from an existing home medication list in [facility] via the "Reconcile Routine" prior to Confirmation of that medication by marketing support specialist. Such practice is discouraged except when the physician, in their clinical judgment, deems that a medical need exists for a medication without regard to previous use.
[2023-01-11] MEDS: POTASSIUM CHLOR 10 MEQ/100 ML 10 MEQ/100 ML BAG IV SCH ×4 (18:51→22:01)
[2023-01-12] MEDS: LOPERAMIDE 2 MG CAPSULE PO PRN ×3 (00:37→20:41)
[2023-01-12] MEDS: D5NS W/20 MEQ KCL 1,000 ML IV SCH ×2 (01:36→09:32)
[2023-01-12 05:38] LABS: BASOPHILS # (AUTO) 0.1 10^3/uL (0.0-0.1); BASOPHILS % (AUTO) 0.5 %; EOSINOPHILS # (AUTO) 0.1 10^3/uL (0.0-0.7); EOSINOPHILS % (AUTO) 0.3 %; HCT - HEMATOCRIT 36.7 % (37.0-47.0); LYMPHOCYTES # (AUTO) 0.7 10^3/uL (1.5-3.5); LYMPHOCYTES % (AUTO) 3.8 %; MEAN CORPUSCULAR HEMOGLOBIN 33.3 pg (27.0-31.0); MEAN CORPUSCULAR HGB CONC 32.7 g/dL (32.0-36.0); MEAN CORPUSCULAR VOLUME 101.9 fL (81.0-99.0); MEAN PLATELET VOLUME 11.3 fL (7.9-10.8); MONOCYTES # (AUTO) 1.1 10^3/uL (0.0-1.0); MONOCYTES % (AUTO) 5.7 %; NEUTROPHILS % (AUTO) 87.4 %; PLT - PLATELET COUNT 154 10^3/uL (130-450); RED CELL DISTRIBUTION WIDTH 17.2 % (12.0-15.0); WHITE BLOOD COUNT 19.4 x10^3/uL (4.8-10.8)
[2023-01-12 05:52] LABS: CALCIUM 7.9 mg/dL (8.5-10.3); POTASSIUM 2.8 mmol/L (3.5-5.0)
--- NOTE | 2023-01-12 07:59 | PROVIDER PROGRESS NOTE ---
Assessment/Plan - Problem List (1) Dehydration Assessment/Plan: 01/11: Patient and report diarrhea for several weeks that has resolved in the last few days. She states that when the diarrhea started, she had begun Cipro for a UTI. She also complained of zero appetite and has only been eating a few bites of food at each meal and not drinking much fluids. All labs reviewed. K was 2.3 on admission. Renal function tests on admission reveal BUN 39 and creatinine 3.4. eGFR is 13. Her baseline creatinine runs around 0.7-0.9. 01/12: K 2.8, BUN/Cr 35/2.0 this AM. Nurse reports that patient coughs with mo derately thick liquids. Patient is still showing signs of dehydration (dry mucous membranes and lethargy). Plan: Swallow eval ordered. Give PRN potassium replacement. PRN loperamide ordered. Pending C Diff test. Encourage PO intake. Continue D5NS with 20 mEq KCl. Strict I&Os. Daily BMPs. (2) Hypokalemia 01/11: Patient had a K of 2.3 in the ED on admission. 10 mEq IV given in the ED. 01/12: K 2.8 this AM. Plan: Give PRN potassium replacement. Daily BMPs. Continue D5NS with 20 mEq KCl. (3) Acute renal failure 01/11: Renal function tests on admission reveal BUN 39 and creatinine 3.4. eGFR is 13. Her baseline creatinine runs around 0.7-0.9. 01/12: BUN/Cr 35/2.0 this AM. Plan: Daily BMPs. Strict I&Os. (4) Congestive heart failure, chronic systolic 01/11: Her last Echo was performed in April 2022 which revealed an EF of 20-30%. She states that they gave her "a lot of diuretics" and she has lost about 80 pounds since then. She is currently taking spironolactone. Troponin around 1000 was 29, then at 1245 it was 25.6. Since it is trending down, this is most likely due to demand ischemia rather than an NSTEMI. I've thought about fluid restriction, but given her dehydration and hypotension, I'm holding off for now. 01/12: Patient is still showing signs of dehydration (dry mucous membranes and lethargy). Plan: Continue D5NS with 20 mEq KCl. Strict I&Os. Daily BMPs. Hold spironalactone. (5) Diarrhea 01/11: Patient and report diarrhea for several weeks that has resolved in the last few days. She states that when the diarrhea started, she had begun Cipro for a UTI (completed 12/20-12/27). 01/12: No reports of diarrhea today. Patient is still showing signs of dehydration (dry mucous membranes and lethargy). Plan: PRN loperamide ordered. Pending C Diff test. Encourage PO intake. Continue D5NS with 20 mEq KCl. (6) Decreased appetite 01/11: Patient complains of zero appetite and has only been eating a few bites of food at each meal and not drinking much fluids. 01/12: Nurse reports that patient coughs with moderately thick liquids. This could be due to her lethargy, but will do a swallow eval to assess. Plan: Swallow eval ordered. Encourage PO intake. Continue D5NS with 20 mEq KCl. (7) Atrial fibrillation, chronic 01/11: Patient has rate controlled Afib and is on anticoagulation. She takes metoprolol and Xarelto. She also has a chronic LBBB. 01/12: Patient's HR in between 100-140 overnight. PVCs noted on tele. Plan: Continue metoprolol and Xarelto. (8) Pancreatic cancer, stage 4 01/11: Has been getting treated for cancer since 2020. She was on abraxane and gencitabine from 2020 to Jul 2022 with minimal tumor response, and then she was changed to FOLFIRI which reduced tumor antigens and decreased mass size. She is also taking pancreatic enzymes. Plan: Continue pancreatic enzymes. (9) Diabetes mellitus, Type II 01/11: Patient takes Jardience and insulin lispro and glargine for her diabetes. Currently she is not taking in much PO. 01/12: BG 218 this morning. Plan: Blood sugar checks. Hold Jardience. Hold glargine until she is taking in more PO. Continue sliding scale insulin for BG coverage. Carb-controlled diet. (10) Hypertension 01/11: Patient takes Entresto for her hypertension. Plan: Given her hypotension, hold her Entresto. - Current Meds Current Meds: Current Medications Generic Name Dose Route Start Last Admin Trade Name Freq PRN Reason Stop Dose Admin Potassium Chloride/Dextrose/Sod Cl 1,000 mls @ 100 mls/hr 01/11/23 14:00 01/12/23 01:36 D5ns W/20 Meq Kcl IV 100 mls/hr .Q10H PRAVEENA Administration Insulin Human Lispro 2 - 10 unit 01/11/23 17:00 01/11/23 20:57 Insulin Lispro 300 Unit/3 Ml Pen SUBQ 4 unit 0800,1200,1700,2100 PRAVEENA Administration Protocol Loperamide HCl 2 mg 01/11/23 15:37 01/12/23 06:24 Loperamide 2 Mg Capsule PO 2 mg QID PRN Administration Diarrhea Potassium Chloride 40 meq 01/11/23 13:00 01/11/23 14:37 Potassium Chloride 20 Meq/15 Ml Udc PO 40 meq DAILYWM PRAVEENA Administration Sodium Chloride 10 ml 01/11/23 17:00 01/11/23 23:45 Sodium Chloride Flush 0.9% 10 Ml Syringe IVP 10 ml 0100,0900,1700 PRAVEENA Administration - Lab Result Fish Bone Diagrams: 01/12/23 05:11 01/12/23 05:11 Subjective - Subjective Patient Reports: Fatigue (Patient is very lethargic. Minimal responses. Denies being in pain. States "yes" when asked if she slept well last night.) Nursing Reports: Other (Nurse is able to arouse patient but is still very sleepy.) Objective Vital Signs: Vital Signs - 24 hr 01/11/23 01/11/23 01/11/23 09:35 10:22 12:23 Temperature 36.9 C Heart Rate 111 H 122 H 67 Heart Rate [ Brachial] Heart Rate [ Radial] Respiratory 26 H 24 18 Rate Blood Pressure 89/64 L 88/61 L 124/80 Blood Pressure [Left Brachial artery] Blood Pressure [Right Brachial artery] O2 Saturation 100 100 98 01/11/23 01/11/23 01/11/23 13:40 14:55 15:01 Temperature 36.2 C L Heart Rate Heart Rate [ Brachial] Heart Rate [ 90 121 H 104 H Radial] Respiratory 19 20 Rate Blood Pressure Blood Pressure 102/66 [Left Brachial artery] Blood Pressure 101/46 L [Right Brachial artery] O2 Saturation 99 100 01/11/23 01/11/23 01/11/23 16:00 17:36 20:14 Temperature 36.3 C L 36.4 C L Heart Rate Heart Rate [ 108 H 91 117 H Brachial] Heart Rate [ Radial] Respiratory 20 20 Rate Blood Pressure Blood Pressure 84/68 L 216/170 H [Left Brachial artery] Blood Pressure 80/56 L 101/63 218/158 H [Right Brachial artery] O2 Saturation 100 98 01/11/23 01/12/23 01/12/23 20:45 00:01 00:37 Temperature 37.3 C Heart Rate Heart Rate [ 90 72 Brachial] Heart Rate [ Radial] Respiratory 24 Rate Blood Pressure Blood Pressure 157/99 H [Left Brachial artery] Blood Pressure 150/120 H 105/59 L 126/61 [Right Brachial artery] O2 Saturation 94 01/12/23 04:12 Temperature 37 C Heart Rate Heart Rate [ 112 H Brachial] Heart Rate [ Radial] Respiratory 24 Rate Blood Pressure Blood Pressure [Left Brachial artery] Blood Pressure 92/78 [Right Brachial artery] O2 Saturation 100 Oxygen O2 Source Room air I&O (Last 24 Hrs): Intake and Output Totals x24h 01/10/23 01/11/23 01/12/23 23:59 23:59 23:59 Intake Total 3886.666 211.667 Output Total 200 Balance 3686.666 211.667 General: Other (Very lethargic. Arouses when her name said. Able to answer yes/no questions.) HEENT: Atraumatic, PERRLA, EOMI, Other (Dry mucous membranes) Neck: Supple, No JVD Neuro: Other (Very lethargic. Arouses when her name said. Able to answer yes/no questions.) Cardiovascular: Normal S1, Normal S2, Other (Afib) Respiratory: Chest non-tender, No respiratory distress, Breath sounds nml Abdomen: Normal bowel sounds, Soft, No tenderness Extremities: No clubbing, No cyanosis, No edema, Normal pulses, No tenderness/swelling Skin: No rashes - Results Results: Laboratory Results WBC 19.4 x10^3/uL (4.8-10.8) H 01/12/23 05:11 RBC 3.60 10^6/uL (4.20-5.40) L 01/12/23 05:11 Hgb 12.0 g/dL (12.0-16.0) 01/12/23 05:11 Hct 36.7 % (37.0-47.0) L 01/12/23 05:11 MCV 101.9 fL (81.0-99.0) H 01/12/23 05:11 MCH 33.3 pg (27.0-31.0) H 01/12/23 05:11 MCHC 32.7 g/dL (32.0-36.0) 01/12/23 05:11 RDW 17.2 % (12.0-15.0) H 01/12/23 05:11 Plt Count 154 10^3/uL (130-450) 01/12/23 05:11 MPV 11.3 fL (7.9-10.8) H 01/12/23 05:11 Neut # (Auto) 17.0 10^3/uL (1.5-6.6) H 01/12/23 05:11 Lymph # (Auto) 0.7 10^3/uL (1.5-3.5) L 01/12/23 05:11 Mora # (Auto) 1.1 10^3/uL (0.0-1.0) H 01/12/23 05:11 Eos # (Auto) 0.1 10^3/uL (0.0-0.7) 01/12/23 05:11 Baso # (Auto) 0.1 10^3/uL (0.0-0.1) 01/12/23 05:11 Absolute Nucleated RBC 0.00 x10^3/uL 01/12/23 05:11 Total Counted 100 01/11/23 10:08 Band Neuts % (Manual) 14 % (0-10) H 01/11/23 10:08 Reactive Lymphs % (Man) 3 % 01/11/23 10:08 Abnorm Lymph % (Manual) 0 % 01/11/23 10:08 Myelocytes % 1 % (-0) H 01/11/23 10:08 Nucleated RBC % 0.0 /100WBC 01/12/23 05:11 Neutrophils # (Manual) 14.4 10^3/uL (1.5-6.6) H 01/11/23 10:08 Lymphocytes # (Manual) 1.7 10^3/uL (1.5-3.5) 01/11/23 10:08 Monocytes # (Manual) 2.2 10^3/uL (0.0-1.0) H 01/11/23 10:08 Eosinophils # (Manual) 0.0 10^3/uL (0-0.7) 01/11/23 10:08 Basophils # (Manual) 0.0 10^3/uL (0-0.1) 01/11/23 10:08 Differential Comment MANUAL DIFFERENTIAL 01/11/23 10:08 Manual Slide Review Indicated 01/11/23 10:08 PT 13.4 secs (9.9-12.6) H 01/11/23 10:08 INR 1.2 (0.8-1.2) 01/11/23 10:08 Sodium 149 mmol/L (135-145) H 01/12/23 05:11 Potassium 2.8 mmol/L (3.5-5.0) L 01/12/23 05:11 Chloride 133 mmol/L (101-111) H* 01/12/23 05:11 Carbon Dioxide 7 mmol/L (21-32) L* 01/12/23 05:11 Anion Gap 9.0 (6-13) 01/12/23 05:11 BUN 35 mg/dL (6-20) H 01/12/23 05:11 Creatinine 2.0 mg/dL (0.4-1.0) H 01/12/23 05:11 Estimated GFR (MDRD) 24 (>89) L 01/12/23 05:11 Glucose 202 mg/dL (70-100) H 01/12/23 05:11 POC Whole Bld Glucose 192 mg/dL (70 - 100) H 01/11/23 20:48 Lactic Acid 2.0 mmol/L (0.5-2.2) 01/11/23 10:08 Calcium 7.9 mg/dL (8.5-10.3) L 01/12/23 05:11 Magnesium 2.1 mg/dL (1.7-2.8) 01/11/23 15:34 Total Bilirubin 0.8 mg/dL (0.2-1.0) 01/11/23 10:08 AST 15 IU/L (10-42) 01/11/23 10:08 ALT 20 IU/L (10-60) 01/11/23 10:08 Alkaline Phosphatase 148 IU/L (42-121) H 01/11/23 10:08 Total Creatine Kinase 43 IU/L (22-269) 01/11/23 10:08 Troponin I High Sens 25.6 ng/L (2.3-14.8) H* 01/11/23 12:45 Total Protein 6.0 g/dL (6.7-8.2) L 01/11/23 10:08 Albumin 3.6 g/dL (3.2-5.5) 01/11/23 10:08 Globulin 2.4 g/dL (2.1-4.2) 01/11/23 10:08 Albumin/Globulin Ratio 1.5 (1.0-2.2) 01/11/23 10:08 Lipase 30 U/L (22-51) 01/11/23 10:08 TSH 1.00 uIU/mL (0.34-5.60) 01/11/23 10:08 Urine Color YELLOW 01/11/23 13:02 Urine Clarity CLEAR (CLEAR) 01/11/23 13:02 Urine pH 6.0 PH (5.0-7.5) 01/11/23 13:02 Ur Specific [place] 1.020 (1.002-1.030) 01/11/23 13:02 Urine Protein TRACE mg/dL (NEGATIVE) 01/11/23 13:02 Urine Glucose (UA) NEGATIVE mg/dL (NEGATIVE) 01/11/23 13:02 Urine Ketones NEGATIVE mg/dL (NEGATIVE) 01/11/23 13:02 Urine Occult Blood NEGATIVE (NEGATIVE) 01/11/23 13:02 Urine Nitrite NEGATIVE (NEGATIVE) 01/11/23 13:02 Urine Bilirubin NEGATIVE (NEGATIVE) 01/11/23 13:02 Urine Urobilinogen 0.2 (NORMAL) E.U./dL (NORMAL) 01/11/23 13:02 Ur Leukocyte Esterase NEGATIVE (NEGATIVE) 01/11/23 13:02 Ur Microscopic Review NOT INDICATED 01/11/23 13:02 Urine Culture Comments NOT INDICATED 01/11/23 13:02 Nasal Adenovirus (PCR) NOT DETECTED 01/11/23 10:08 Nasal B. parapertussis DNA (PCR) NOT DETECTED 01/11/23 10:08 Nasal Coronavir 229E PCR NOT DETECTED 01/11/23 10:08 Nasal Coronavir HKU1 PCR NOT DETECTED 01/11/23 10:08 Nasal Coronavir NL63 PCR NOT DETECTED 01/11/23 10:08 Nasal Coronavir OC43 PCR NOT DETECTED 01/11/23 10:08 Nasal Enterovir/Rhinovir PCR NOT DETECTED 01/11/23 10:08 Nasal Influenza B PCR NOT DETECTED 01/11/23 10:08 Nasal Influenza A PCR NOT DETECTED 01/11/23 10:08 Nasal Parainfluen 1 PCR NOT DETECTED 01/11/23 10:08 Nasal Parainfluen 2 PCR NOT DETECTED 01/11/23 10:08 Nasal Parainfluen 3 PCR NOT DETECTED 01/11/23 10:08 Nasal Parainfluen 4 PCR NOT DETECTED 01/11/23 10:08 Nasal RSV (PCR) NOT DETECTED 01/11/23 10:08 Nasal B.pertussis DNA PCR NOT DETECTED 01/11/23 10:08 Nasal C.pneumoniae (PCR) NOT DETECTED 01/11/23 10:08 Ariel Human Metapneumo PCR NOT DETECTED 01/11/23 10:08 Nasal M.pneumoniae (PCR) NOT DETECTED 01/11/23 10:08 Nasal SARS-CoV-2 (PCR) NOT DETECTED 01/11/23 10:08 Stl C. diff Tox B Gene NEGATIVE (NEGATIVE) 01/11/23 15:15 ABX Reporting Has patient been on IV antibiotics over the past 48 hours?: No
[2023-01-12] MEDS: POTASSIUM CHLORIDE 20 MEQ/15 ML UDC PO SCH (08:02)
[2023-01-12] MEDS: SODIUM CHLORIDE FLUSH 0.9% 10 ML SYRINGE IVP SCH ×2 (08:03→16:55)
[2023-01-12] MEDS: INSULIN LISPRO 300 UNIT/3 ML PEN SUBQ SCH ×4 (08:17→20:35)
[2023-01-12] MEDS ORDERED: ENOXAPARIN 40 MG/0.4 ML SYRINGE SUBQ SCH (09:00)
[2023-01-12] MEDS: POTASSIUM CHLOR 10 MEQ/100 ML 10 MEQ/100 ML BAG IV SCH ×4 (09:32→14:50)
[2023-01-12 10:29] LABS: ESTIMATED AVERAGE GLUCOSE 143 mg/dL (70-100); HEMOGLOBIN A1c% 6.6 % (4.27-6.07)
[2023-01-12] MEDS ORDERED: LIPASE/PROTEASE/AMYLASE CAPSULE PO SCH (12:00)
[2023-01-12] MEDS ORDERED: LACTATED RINGERS 1,000 ML IV ONE (13:47)
[2023-01-12] MEDS ORDERED: PIPERACILLIN/TAZOBACTAM 3.375 GM in SODIUM CHLORIDE 0.9% MINIBAG 100 ML IV ONE (14:00)
[2023-01-12] MEDS ORDERED: LIPASE/PROTEASE/AMYLASE CAPSULE PO PRN (14:03)
[2023-01-12 14:36] LABS: BASOPHILS % (AUTO) 0.4 %; HCT - HEMATOCRIT 37.9 % (37.0-47.0); HGB - HEMOGLOBIN 12.5 g/dL (12.0-16.0); LYMPHOCYTES % (AUTO) 4.2 %; MEAN CORPUSCULAR HEMOGLOBIN 33.2 pg (27.0-31.0); MEAN CORPUSCULAR VOLUME 100.8 fL (81.0-99.0); MEAN PLATELET VOLUME 10.9 fL (7.9-10.8); MONOCYTES % (AUTO) 5.9 %; PLT - PLATELET COUNT 178 10^3/uL (130-450); RED BLOOD COUNT 3.76 10^6/uL (4.20-5.40); RED CELL DISTRIBUTION WIDTH 17.2 % (12.0-15.0); WHITE BLOOD COUNT 20.1 x10^3/uL (4.8-10.8)
[2023-01-12 14:41] LABS: CALCIUM 8.3 mg/dL (8.5-10.3); CREATININE 1.7 mg/dL (0.4-1.0); POTASSIUM 3.1 mmol/L (3.5-5.0)
[2023-01-12 14:44] LABS: SLIDE REVIEW? Indicated
[2023-01-12 15:30] LABS: ABNORMAL LYMPHS % (MANUAL) 0 %
[2023-01-12] MEDS: METOPROLOL 5 MG/5 ML VIAL IVP PRN (15:51)
[2023-01-12] MEDS: DEXTROSE 5% 1,000 ML IV SCH (15:52)
[2023-01-12 16:07] LABS: BAND NEUTROPHILS % (MANUAL) 4 %; LYMPHOCYTES # (MANUAL) 0.2 10^3/uL (1.5-3.5); LYMPHOCYTES % (MANUAL) 1 %; NEUTROPHILS # (MANUAL) 18.9 10^3/uL (1.5-6.6)
[2023-01-12 16:08] LABS: DIFFERENTIAL COMMENT MANUAL DIFFERENTIAL; PLATELET ESTIMATE, MANUAL NORMAL (130-450,000) (NORMAL); PLATELET MORPHOLOGY NORMAL APPEARANCE (NORMAL); WBC MORPHOLOGY (MULTIPLE) 1+ TOXIC GRANULATION (NORMAL)
[2023-01-12] MEDS ORDERED: METOPROLOL 5 MG/5 ML VIAL IVP STA (16:34)
[2023-01-12] MEDS: PIPERACILLIN/TAZOBACTAM 3.375 GM in SODIUM CHLORIDE 0.9% MINIBAG 100 ML IV SCH (16:55)
--- NOTE | 2023-01-12 17:16 | ADVANCE CARE PLANNING NOTE ---
Advance Care Planning - Planning Encounter Date: 01/12/23 Time: 14:00 Purpose: establsih code status Parties in Attendance: (DPOA) and hospitalist Decisional Capacity of the Patient: she is encephalopathic and acutely so. Usually alert, oriented, and this is new for her. 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 She and he lived in [place] for over 27 years and they retired to [facility] in 2011. They travel, spend time with family (daughter lives away) and she loves her landers. She has numerous siblings across the country. She had a satisfactory peaceful life filled w books as well. They were buying a home in [place] to divide their time between [facility] and there, when she was diagnosed w pancreatic ca 04/2021 after having weeks of flank pain. She barely was able to tolerate the abraxane and gemzar and had not responded to therapy. In July 2022 she was changed to FOLFIRI and has been taking it monthly. She has always had diarrhea and the diarrhea increased in frequency and amount but it was tolerable. She was also getting fluid infusions to help her with dehydration. She then had a urinary tract infection while she was in [place] and was given Cipro. She opted to wait to take the Cipro until she came back to [facility] on December 20. Within 1 to 2 days of taking the Cipro she had a noticeable increase in diarrhea, anorexia, and it has worsened to the point that she was not able to ambulate due to weakness in the last week. He says that of all the things that she has dealt with, it was this recent treatment with Cipro that seem to turn the tide in the wrong direction. She is now in the hospital with severe dehydration, renal failure, A-fib with RVR and is not doing well. I wanted to bring up CODE STATUS in case she did have a cardiac or respiratory arrest. He tells me that they have never really discussed this. 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 She usually has everything down to a list and he is surprised that this was never brought up between the 2 of them. But he feels that "knowing who she is", she would not want to live life as she is currently experiencing it. The last month with increasing weakness, worsening confusion, inability to eat has been terrible. And now she is laying in a hospital bed encephalopathic, confused, and just miserable. He would like to change her CODE STATUS from the full code we have her at to DO NOT RESUSCITATE. Objective/Medical Story: This patient is a 72 yo female with a history of pancreatic cancer with metastasis to the liver, HFrEF (20-30%), hypertension, hypercholesterolemia, atrial fibrillation on anticoagulation, left bundle branch block, peripheral neuropathy secondary to chemotherapy, Type II diabetes mellitus, and skin cancer who presents to the ED with complaints of generalized weakness for the past 7-10 days. She was on abraxane and gencitabine from 2020 to Jul 2022 with minimal tumor response, and then she was changed to FOLFIRI which reduced tumor antigens and decreased mass size. She states that she has had generalized weakness for awhile since starting chemotherapy, but it has gotten worse to the point where she needed to use a walker 10 days ago, and then using a wheelchair 5 days ago. She was using the wheelchair to go from the bed to the bathroom, and then was sleeping most of the days. She has almost no feeling left in her feet, so this also makes it harder to get around. She was also treated for a UTI with Cipro from 12/20 to 12/27, during and after which she was having profound diarrhea that resolved about four days ago. She states that she's lost weight over the last few weeks, especially since she has had "no appetite" since the diarrhea s tarted. 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 She still has dry oral mucosa today and skin tenting and spite of aggressive IV fluid resuscitation. However her creatinine has responded and is started at 3.4 and is now 1.7. However with the hydration with D5 normal saline her sodium has come up to 150, potassium continues to be low at 3.1. Carbon dioxide continues to be low at 8 and she is developing hyperchloremia. We are switching around her IV fluids to give her more free water in the form of D5 without normal saline. She is also can to be started on PPN since she is not eating. She is very encephalopathic. Atrial fibrillation with RVR has since worsened today. Troponin on admission was 29, and it has risen to 40.9. EKG is without any acute changes but she has a bundle branch block that leaves it uninterpretable for ischemia. I will will be changing her IV fluids, monitoring her rhythm, and have started IV Lopressor and will most likely need IV diltiazem. I am also transferring her to the ICU. Goals of Care: To recover from this acute event of severe dehydration, enteritis, and A-fib with RVR. It is hopefully their goal to keep on receiving FOLFIRI with modification to keep her alive longer. The does state that at some point they really need to revisit care goals. He is hoping that she will become more alert to then share this advance care planning conversation with me as well. Plan: Transfer to ICU Continue to aggressively supplement electrolytes Change salt water to free water Control A-fib with diltiazem drip if necessary in the ICU Code Status: Do Not Attempt Resuscitation Time spent on advance care plannin minutes
[2023-01-12 18:23] LABS: MAGNESIUM 1.8 mg/dL (1.7-2.8); POTASSIUM 3.3 mmol/L (3.5-5.0)
[2023-01-12] MEDS: SODIUM CHLORIDE FLUSH 0.9% 10 ML SYRINGE IVP PRN (18:27)
[2023-01-12 18:31] LABS: CALCIUM, IONIZED 1.24 mmol/L (1.15-1.33); VBG PH 7.306 (7.31-7.41)
[2023-01-12] MEDS: FAT EMULSION 20% 250 ML IV SCH (18:38)
[2023-01-12] MEDS ORDERED: MAGNESIUM SULFATE 2 GRAM 2 GM/50 ML BAG IV ONE (18:51)
[2023-01-12] MEDS: MORPHINE 2 MG/ML CARPUJECT IVP PRN ×2 (18:59→21:00)
[2023-01-12] MEDS ORDERED: PPN (CLINIMIX E 4.25/5) 2,000 ML with MULTIVITAMIN 10 ML, TRACE ELEMENTS 1 ML IV SCH ×3 (19:00)
[2023-01-12] MEDS: POTASSIUM CHLOR 20 MEQ/100 ML 20 MEQ/100 ML BAG IV SCH ×2 (20:20→21:34)
[2023-01-12] MEDS: oxyCODONE 5 MG TABLET PO PRN (20:20)
[2023-01-12] MEDS: APIXABAN 5 MG TABLET PO SCH (20:20)
[2023-01-12] MEDS: MIN OIL/DIMETHICON/COCONUT OIL 92 GM TUBE TOP PRN (22:24)
[2023-01-13] MEDS: PIPERACILLIN/TAZOBACTAM 3.375 GM in SODIUM CHLORIDE 0.9% MINIBAG 100 ML IV SCH ×3 (01:09→17:45)
[2023-01-13] MEDS: SODIUM CHLORIDE FLUSH 0.9% 10 ML SYRINGE IVP SCH ×3 (01:10→17:45)
[2023-01-13] MEDS: MORPHINE 2 MG/ML CARPUJECT IVP PRN ×2 (01:27→05:15)
[2023-01-13] MEDS: METOPROLOL 5 MG/5 ML VIAL IVP PRN ×4 (01:33→22:47)
[2023-01-13] MEDS: DEXTROSE 5% 1,000 ML IV SCH ×3 (04:09→15:20)
[2023-01-13 04:52] LABS: BASOPHILS # (AUTO) 0.1 10^3/uL (0.0-0.1); BASOPHILS % (AUTO) 0.4 %; EOSINOPHILS % (AUTO) 0.3 %; HCT - HEMATOCRIT 33.6 % (37.0-47.0); HGB - HEMOGLOBIN 11.2 g/dL (12.0-16.0); LYMPHOCYTES # (AUTO) 0.8 10^3/uL (1.5-3.5); LYMPHOCYTES % (AUTO) 5.4 %; MEAN CORPUSCULAR HEMOGLOBIN 33.3 pg (27.0-31.0); MEAN CORPUSCULAR HGB CONC 33.3 g/dL (32.0-36.0); MEAN PLATELET VOLUME 11.1 fL (7.9-10.8); MONOCYTES % (AUTO) 6.6 %; NEUTROPHILS # (AUTO) 12.4 10^3/uL (1.5-6.6); NEUTROPHILS % (AUTO) 84.6 %; PLT - PLATELET COUNT 149 10^3/uL (130-450); RED BLOOD COUNT 3.36 10^6/uL (4.20-5.40); RED CELL DISTRIBUTION WIDTH 17.3 % (12.0-15.0); WHITE BLOOD COUNT 14.6 x10^3/uL (4.8-10.8)
[2023-01-13 04:53] LABS: CALCIUM, IONIZED 1.24 mmol/L (1.15-1.33); VBG PH 7.272 (7.31-7.41)
[2023-01-13 05:06] LABS: CALCIUM 8.2 mg/dL (8.5-10.3); CREATININE 1.5 mg/dL (0.4-1.0); MAGNESIUM 2.5 mg/dL (1.7-2.8); PHOSPHORUS 3.4 mg/dL (2.5-4.6); POTASSIUM 3.7 mmol/L (3.5-5.0)
[2023-01-13] MEDS ORDERED: POTASSIUM CHLOR 20 MEQ/100 ML 20 MEQ/100 ML BAG IV ONE (05:08)
[2023-01-13] MEDS: POTASSIUM CHLORIDE 20 MEQ/15 ML UDC PO SCH (07:35)
[2023-01-13] MEDS: APIXABAN 5 MG TABLET PO SCH ×2 (09:06→20:06)
[2023-01-13] MEDS: INSULIN LISPRO 300 UNIT/3 ML PEN SUBQ SCH ×4 (09:09→20:49)
--- NOTE | 2023-01-13 18:46 | PROVIDER PROGRESS NOTE ---
Subjective - Prog Note Date Prog Note Date: 01/13/23 Prog Note Time: 18:45 - Subjective Subjective: Yesterday she was placed in the ICU for uncontrolled A-fib, worsening metabolic encephalopathy and worsening hyperchloremic acidosis on the basis of normal saline. I changed her IV fluids from D5.9 and she is only on D5. She was also started on PPN. Her A-fib is now controlled with Lopressor and she stays in the low 100s as opposed to the 130s and 150s she was yesterday. Troponin has indicated more enzyme leak than a true TX. Glucose has been stable at 209, 239 and 240 today. Creatinine has improved. When she was admitted it was 3.4 and she is now 1.5. In spite of this she is still encephalopathic. She will open her eyes, she will respond appropriately but very briefly. She knows she is in the hospital. She keeps on denying that she is in any significant pain. Current Medications - Current Medications Current Medications: Active Medications Generic Name Dose Route Start Last Admin Trade Name Christiano PRN Reason Stop Dose Admin Acetaminophen 650 mg 01/11/23 12:28 Acetaminophen 325 Mg Tablet PO Q4HR PRN Pain 1 to 4, or Fever Lipase/Protease/Amylase 5 cap 01/12/23 14:03 Lipase/Protease/Amylase Capsule PO BID PRN IF EATING SOLID FOODS Apixaban 5 mg 01/12/23 21:00 01/13/23 09:06 Apixaban 5 Mg Tablet PO 5 mg BID PRAVEENA Administration Multivitamins 10 ml/ TRACE 2,011 mls @ 83.373 mls/hr 01/12/23 19:00 01/12/23 18:32 ELEMENTS 1 ml/ Amino Acids/ IV 01/13/23 18:59 83.373 mls/hr Electrolytes/Dextrose 1900 [facility] Administration Protocol Fat Emulsion Intravenous 250 mls @ 21 mls/hr 01/12/23 19:00 01/13/23 06:35 Intralipid 20% IV Infused 1900 PRAVEENA Infusion Piperacillin Sod/Tazobactam 100 mls @ 25 mls/hr 01/12/23 17:30 01/13/23 17:45 Sod 3.375 gm/ Sodium Chloride IV 25 mls/hr Q8H PRAVEENA Administration Dextrose 1,000 mls @ 125 mls/hr 01/12/23 15:00 01/13/23 15:20 D5w IV Not Given .Q8H [facility] Multivitamins 10 ml/ TRACE 1,011 mls @ 83 mls/hr 01/13/23 19:00 ELEMENTS 1 ml/ Amino Acids/ IV 01/14/23 07:11 Electrolytes/Dextrose 1900 [facility] Protocol Amino Acids/Electrolytes/Dextrose 1,000 mls @ 83 mls/hr 01/14/23 07:00 Clinimix E 4.25%-5% Solution IV 01/14/23 19:03 ONCE [facility] Protocol Multivitamins 10 ml/ TRACE 2,011 mls @ 83 mls/hr 01/14/23 19:00 ELEMENTS 1 ml/ Amino Acids/ IV Electrolytes/Dextrose 1900 [facility] Protocol Insulin Human Lispro 2 - 10 unit 01/11/23 17:00 01/13/23 17:45 Insulin Lispro 300 Unit/3 Ml Pen SUBQ 6 unit 0800,1200,1700,2100 [facility] Administration Protocol Loperamide HCl 2 mg 01/11/23 15:37 01/12/23 20:41 Loperamide 2 Mg Capsule PO 2 mg QID PRN Administration Diarrhea Metoprolol Tartrate 5 mg 01/12/23 15:36 01/13/23 12:40 Metoprolol 5 Mg/5 Ml Vial IVP 5 mg Q6H PRN Administration afib w RVR Mineral Oil 1 applic 01/11/23 15:36 01/12/23 22:24 Min Oil/Dimethicon/Coconut Oil 92 Gm Tube TOP 1 applic PRN PRN Administration Skin Care Morphine Sulfate 2 mg 01/12/23 17:40 01/13/23 05:15 Morphine 2 Mg/Ml Carpuject IVP 2 mg Q2HR PRN Administration Severe Pain (Level 7-10) Ondansetron HCl 4 mg 01/11/23 12:28 Ondansetron Odt 4 Mg Tablet TL Q6HR PRN Nausea / Vomiting Ondansetron HCl 4 mg 01/11/23 12:28 Ondansetron 4 Mg/2 Ml Vial IVP Q6HR PRN Nausea / Vomiting Oxycodone HCl 5 mg 01/11/23 12:28 01/12/23 20:20 Oxycodone 5 Mg Tablet PO 5 mg Q4HR PRN Administration Pain 5 to 7 Potassium Chloride 40 meq 01/11/23 13:00 01/13/23 07:35 Potassium Chloride 20 Meq/15 Ml Udc PO 40 meq DAILYWM PRAVEENA Administration Sodium Chloride 10 ml 01/11/23 12:28 01/12/23 18:27 Sodium Chloride Flush 0.9% 10 Ml Syringe IVP 30 ml PRN PRN Administration NEEDED PER PROVIDER ORDERS Sodium Chloride 10 ml 01/11/23 17:00 01/13/23 17:45 Sodium Chloride Flush 0.9% 10 Ml Syringe IVP 10 ml 0100,0900,1700 PRAVEENA Administration Lipase/Protease/Amylase [Creon Dr 24,000 Units Capsule] 1 - 4 cap PO BID MDD with meals/snacks 05/05/21 Cannabidiol (Cbd) [Epidiolex] 25 mg PO BID 05/12/21 Rivaroxaban [Xarelto] 20 mg PO DAILY 05/20/21 Glimepiride 4 mg PO BID 01/05/22 Insulin Glargine [Lantus Solostar] 10 unit SQ .CHEMO DAYS 01/26/22 Insulin Lispro [Humalog Kwikpen U-100] 2 - 10 units SQ .TITRATING 01/26/22 Sacubitril/Valsartan [Entresto 24 mg-26 mg Tablet] 1 each PO BID 04/27/22 Alpha Lipoic Acid 300 mg PO BID 12/17/22 activated charcoaL [Charcoal] 200 mg PO UD 12/17/22 Empagliflozin [Jardiance] 1 tab PO DAILY 01/11/23 Metoprolol Succinate [Toprol Xl] 3 tab PO DAILY 01/11/23 Opium Tincture 0.6 ml PO QID PRN 01/11/23 Spironolactone [Aldactone] 1 tab PO DAILY 01/11/23 Objective - Vital Signs/Intake & Output Reviewed Vital Signs: Yes Vital Signs: Vital Signs x48h Temp Pulse Resp BP BP Pulse Ox 01/13/23 18:00 109 H 18 103/64 100 01/13/23 17:00 36.4 C L 114 H 15 107/67 100 01/13/23 16:00 106 H 16 98/54 L 100 01/13/23 15:00 98 12 88/56 L 100 01/13/23 14:00 103 H 13 93/64 100 01/13/23 13:10 94/57 L 01/13/23 13:00 101 H 12 94/57 L 100 01/13/23 12:40 117/81 H 01/13/23 12:30 134 H 14 117/81 H 100 01/13/23 12:00 36.8 C 106 H 25 H 95/80 100 01/13/23 11:00 94 18 101/67 100 Intake & Output: Intake & Output 01/10/23 01/11/23 01/12/23 01/13/23 23:59 23:59 23:59 23:59 Intake Total 3886.666 3690.750 1143.75 Output Total 200 700 Balance 3686.666 3690.750 443.75 - Objective General Appearance: positive: Lethargic, Other (Barely responsive. Does open her eyes. Does respond very momentarily and briefly.) Eyes Bilateral: positive: PERRL, EOMI ENT: positive: Dry mucous membranes Neck: positive: No JVD. negative: Stiff neck Respiratory: positive: No respiratory distress. negative: Wheezes, Rales, Rhonchi Cardiovascular: positive: Irregularly irregular Abdomen: positive: Non-tender, No organomegaly, Other (Hypoactive bowel sounds. She is not distended) Skin: positive: Warm, Dry, Pallor Extremities: positive: Full ROM, Pedal edema Neurologic/Psychiatric: positive: CN's nml (2-12), Motor nml (No focal deficits. She will slowly move all of her extremities.), Other (Needs to remind herself that this woman is completely functional, alert, conversant until she had that dose of Cipro for her UTI) - Lab Results Fish Bones: 01/13/23 04:30 01/13/23 04:30 Other Labs: Lab Results x24hrs 01/13/23 01/13/23 01/13/23 Range/Units 17:00 11:34 07:44 WBC (4.8-10.8) x10^3/uL RBC (4.20-5.40) 10^6/uL Hgb (12.0-16.0) g/dL Hct (37.0-47.0) % MCV (81.0-99.0) fL MCH (27.0-31.0) pg MCHC (32.0-36.0) g/dL RDW (12.0-15.0) % Plt Count (130-450) 10^3/uL MPV (7.9-10.8) fL Neut # (Auto) (1.5-6.6) 10^3/uL Lymph # (Auto) (1.5-3.5) 10^3/uL [place] # (Auto) (0.0-1.0) 10^3/uL Eos # (Auto) (0.0-0.7) 10^3/uL Baso # (Auto) (0.0-0.1) 10^3/uL Absolute Nucleated RBC x10^3/uL Nucleated RBC % /100WBC VBG pH (7.31-7.41) Ionized Calcium (1.15-1.33) mmol/L Sodium (135-145) mmol/L Potassium (3.5-5.0) mmol/L Chloride (101-111) mmol/L Carbon Dioxide (21-32) mmol/L Anion Gap (6-13) BUN (6-20) mg/dL Creatinine (0.4-1.0) mg/dL Estimated GFR (MDRD) (>89) Glucose (70-100) mg/dL POC Whole Bld Glucose 240 H 239 H 209 H (70 - 100) mg/dL Calcium (8.5-10.3) mg/dL Phosphorus (2.5-4.6) mg/dL Magnesium (1.7-2.8) mg/dL Prealbumin (18-45) mg/dL Triglycerides ( - 149) mg/dL Nasal Screen MRSA (PCR) (NEGATIVE) 01/13/23 01/13/23 01/13/23 Range/Units 04:30 04:30 04:30 WBC 14.6 H (4.8-10.8) x10^3/uL RBC 3.36 L (4.20-5.40) 10^6/uL Hgb 11.2 L (12.0-16.0) g/dL Hct 33.6 L (37.0-47.0) % MCV 100.0 H (81.0-99.0) fL MCH 33.3 H (27.0-31.0) pg MCHC 33.3 (32.0-36.0) g/dL RDW 17.3 H (12.0-15.0) % Plt Count 149 (130-450) 10^3/uL MPV 11.1 H (7.9-10.8) fL Neut # (Auto) 12.4 H (1.5-6.6) 10^3/uL Lymph # (Auto) 0.8 L (1.5-3.5) 10^3/uL [place] # (Auto) 1.0 (0.0-1.0) 10^3/uL Eos # (Auto) 0.0 (0.0-0.7) 10^3/uL Baso # (Auto) 0.1 (0.0-0.1) 10^3/uL Absolute Nucleated RBC 0.00 x10^3/uL Nucleated RBC % 0.0 /100WBC VBG pH 7.272 L (7.31-7.41) Ionized Calcium 1.24 (1.15-1.33) mmol/L Sodium 150 H (135-145) mmol/L Potassium 3.7 (3.5-5.0) mmol/L Chloride 130 H* (101-111) mmol/L Carbon Dioxide 12 L* (21-32) mmol/L Anion Gap 8.0 (6-13) BUN 32 H (6-20) mg/dL Creatinine 1.5 H (0.4-1.0) mg/dL Estimated GFR (MDRD) 34 L (>89) Glucose 254 H (70-100) mg/dL POC Whole Bld Glucose (70 - 100) mg/dL Calcium 8.2 L (8.5-10.3) mg/dL Phosphorus 3.4 (2.5-4.6) mg/dL Magnesium 2.5 (1.7-2.8) mg/dL Prealbumin 10 L (18-45) mg/dL Triglycerides 114 ( - 149) mg/dL Nasal Screen MRSA (PCR) (NEGATIVE) 01/12/23 01/12/23 Range/Units 20:33 18:00 WBC (4.8-10.8) x10^3/uL RBC (4.20-5.40) 10^6/uL Hgb (12.0-16.0) g/dL Hct (37.0-47.0) % MCV (81.0-99.0) fL MCH (27.0-31.0) pg MCHC (32.0-36.0) g/dL RDW (12.0-15.0) % Plt Count (130-450) 10^3/uL MPV (7.9-10.8) fL Neut # (Auto) (1.5-6.6) 10^3/uL Lymph # (Auto) (1.5-3.5) 10^3/uL [place] # (Auto) (0.0-1.0) 10^3/uL Eos # (Auto) (0.0-0.7) 10^3/uL Baso # (Auto) (0.0-0.1) 10^3/uL Absolute Nucleated RBC x10^3/uL Nucleated RBC % /100WBC VBG pH (7.31-7.41) Ionized Calcium (1.15-1.33) mmol/L Sodium (135-145) mmol/L Potassium (3.5-5.0) mmol/L Chloride (101-111) mmol/L Carbon Dioxide (21-32) mmol/L Anion Gap (6-13) BUN (6-20) mg/dL Creatinine (0.4-1.0) mg/dL Estimated GFR (MDRD) (>89) Glucose (70-100) mg/dL POC Whole Bld Glucose 238 H (70 - 100) mg/dL Calcium (8.5-10.3) mg/dL Phosphorus (2.5-4.6) mg/dL Magnesium (1.7-2.8) mg/dL Prealbumin (18-45) mg/dL Triglycerides ( - 149) mg/dL Nasal Screen MRSA (PCR) NEGATIVE (NEGATIVE) ABX Reporting Has patient been on IV antibiotics over the past 48 hours?: Yes Assessment/Plan - Problem List (1) Metabolic encephalopathy Impression: She was already confused, encephalopathic in the emergency room. She had weakne ss, generalized fatigue. I did not see her in the emergency room but have only seen her on MedSurg when I admitted her. At that point in time she was already not really responding to questions. I have been aggressively hydrating her because of her renal failure due to diarrhea. And I had hoped that just with treatment of her dehydration she would improve. I gave her quite a bit of normal saline and sodium went from 143->150. Chloride went from 120-134. Carbon dioxide went from 7->8. So yesterday I stopped her normal saline and switch her to D5. And started her on PPN. All of these labs have either stayed stable or improved. Chloride is 130 today, carbon dioxide is 12. But she herself has not improved very much. Pancreatic cancer usually does not go to brain. So I am not suspecting neoplasm. I do not have her any sedating medications. Nursing has been concerned that she is in pain but the patient has stated many times, upon questioning, that she is not in pain. Plan: I am going to give her another day on D5 and PPN. See if her chloride and sodium improved. If she has not improved in either encephalopathy or labs, consider CT of the head. (2) Dehydration Assessment/Plan: 01/11: Patient and report diarrhea for several weeks that has resolved in the last few days. She states that when the diarrhea started, she had begun Cipro for a UTI. She also complained of zero appetite and has only been eating a few bites of food at each meal and not drinking much fluids. All labs reviewed. K was 2.3 on admission. Renal function tests on admission reveal BUN 39 and creatinine 3.4. eGFR is 13. Her baseline creatinine runs around 0.7-0.9. 01/12: K 2.8, BUN/Cr 35/2.0 this AM. Nurse reports that patient coughs with moderately thick liquids. Patient is still showing signs of dehydration (dry mucous membranes and lethargy). 01/13: She still has dry mucous membranes and lethargy. Not much change from yesterday. Plan: Swallow eval ordered.But speech not available today. Hopefully will be able to assess her tomorrow. Give PRN potassium replacement. PRN loperamide ordered. Encourage PO intake. Stay on D5. No normal saline.IV fluid rate adjusted to combine her PPN and D5 to 120 cc an hour. Strict I&Os. Daily BMPs. (2) Hypokalemia 01/11: Patient had a K of 2.3 in the ED on admission. 10 mEq IV given in the ED. 01/12: K 2.8 this AM. 01/13: K 3.7 Plan: Give PRN potassium replacement. Daily BMPs. On D5W. No longer has potassium in the D5. (3) Acute renal failure 01/11: Renal function tests on admission reveal BUN 39 and creatinine 3.4. eGFR is 13. Her baseline creatinine runs around 0.7-0.9. 01/12: BUN/Cr 35/2.0 this AM. 01/13: Bun/creat 32/1.5 Her renal failure is slowly resolving. Baseline creatinine is as above. We will stop IV fluids when she reaches less than 1.0 on her creatinine. But she has to be able to eat or drink. Plan: Daily BMPs. Strict I&Os. (4) Congestive heart failure, chronic systolic 01/11: Her last Echo was performed in April 2022 which revealed an EF of 20-30%. She states that they gave her "a lot of diuretics" and she has lost about 80 pounds since then. She is currently taking spironolactone. Troponin around 1000 was 29, then at 1245 it was 25.6. Since it is trending down, this is most likely due to demand ischemia rather than an NSTEMI. I've thought about fluid restriction, but given her dehydration and hypotension, I'm holding off for now. 01/12: Patient is still showing signs of dehydration (dry mucous membranes and lethargy). 01/13: While she has cough, phlegm, and occasional rhonchi, I am not hearing crackles. She is not tachypneic. Nor does she have an oxygen requirement. She is 100% on room air.She has irregularly irregular heart rate. Soft blood pressures. Continues to show signs of dehydration. Dry oral mucosa. Her overall intake and output balance is +7819 cc as of this dictation.I do not think she has any evidence of acute heart failure at this time. Plan: Change IV fluids to D5. She is also on PPN.. Strict I&Os.Make sure we do not put her in a congestive heart failure. Daily BMPs. Hold spironalactone. (5) Diarrhea 01/11: Patient and report diarrhea for several weeks that has resolved in the last few days. She states that when the diarrhea started, she had begun Cipro for a UTI (completed 12/20-12/27). 01/12: No reports of diarrhea today. Patient is still showing signs of dehydration (dry mucous membranes and lethargy).C. difficile is negative. 01/13: No reports of diarrhea today. Still with dry mucous membranes and letharg y. Note that her CT of abdomen did show air-fluid levels in the bowels so even though she does not have any diarrhea, she certainly had some present inside her bowel on CT. Plan: PRN loperamide ordered. Encourage PO intake. Change IV fluids to D5.. (6) Decreased appetite 01/11: Patient complains of zero appetite and has only been eating a few bites of food at each meal and not drinking much fluids. 01/12: Nurse reports that patient coughs with moderately thick liquids. This could be due to her lethargy, but will do a swallow eval to assess. Plan: Swallow eval ordered. Encourage PO intake. Continue D5NS with 20 mEq KCl. (7) Atrial fibrillation, chronic 01/11: Patient has rate controlled Afib and is on anticoagulation. She takes metoprolol and Xarelto. She also has a chronic LBBB. 01/12: Patient's HR in between 100-140 overnight. PVCs noted on tele. By late afternoon she was consistently in the 130's and 140's. More obtunded. So I tr ansferred to the ICU and started 5 mg of Lopressor IV push every 6 hours as needed. Changed her electrolyte replacement. Make sure her potassium was supplemented. 01/13:her encephalopathy has not improved, her heart rate has. Plan: Continue metoprolol iv and Xarelto. (8) Pancreatic cancer, stage 4 01/11: Has been getting treated for cancer since 2020. She was on abraxane and gencitabine from 2020 to Jul 2022 with minimal tumor response, and then she was changed to FOLFIRI which reduced tumor antigens and decreased mass size. She is also taking pancreatic enzymes. Plan: Continue pancreatic enzymes when she is able to eat. (9) Diabetes mellitus, Type II 01/11: Patient takes Jardience and insulin lispro and glargine for her diabetes. Currently she is not taking in much PO. 01/12: BG 218 this morning. 01/13:Glucose today has been 254, 209, 239, 240. This is with TPN being started. Plan: Continue POC glucose checks Hold Jardience. Hold glargine until she is taking in more PO. Continue sliding scale insulin for BG coverage. (10) Hypertension 01/11: Patient takes Entresto for her hypertension. Plan: Given her hypotension, hold her Entresto.
[2023-01-13] MEDS: FAT EMULSION 20% 250 ML IV SCH (18:52)
[2023-01-13] MEDS ORDERED: MULTIVITAMIN IV SCH ×3 (19:00)
[2023-01-13] MEDS ORDERED: TRACE ELEMENTS IV SCH ×3 (19:00)
[2023-01-13] MEDS ORDERED: PPN IV SCH ×3 (19:00)
[2023-01-13] MEDS: oxyCODONE 5 MG TABLET PO PRN (22:42)
[2023-01-14] MEDS: PIPERACILLIN/TAZOBACTAM 3.375 GM in SODIUM CHLORIDE 0.9% MINIBAG 100 ML IV SCH ×3 (01:10→18:01)
[2023-01-14 04:46] LABS: BASOPHILS # (AUTO) 0.1 10^3/uL (0.0-0.1); BASOPHILS % (AUTO) 0.6 %; CALCIUM, IONIZED 1.23 mmol/L (1.15-1.33); EOSINOPHILS # (AUTO) 0.3 10^3/uL (0.0-0.7); EOSINOPHILS % (AUTO) 2.1 %; HCT - HEMATOCRIT 35.8 % (37.0-47.0); HGB - HEMOGLOBIN 11.8 g/dL (12.0-16.0); LYMPHOCYTES # (AUTO) 1.4 10^3/uL (1.5-3.5); LYMPHOCYTES % (AUTO) 8.5 %; MEAN CORPUSCULAR HEMOGLOBIN 33.9 pg (27.0-31.0); MEAN CORPUSCULAR VOLUME 102.9 fL (81.0-99.0); MEAN PLATELET VOLUME 11.4 fL (7.9-10.8); MONOCYTES # (AUTO) 1.1 10^3/uL (0.0-1.0); MONOCYTES % (AUTO) 6.7 %; NEUTROPHILS # (AUTO) 12.2 10^3/uL (1.5-6.6); NEUTROPHILS % (AUTO) 76.6 %; NRBC ABSOLUTE COUNT (AUTO) 0.03 x10^3/uL; NUCLEATED RED BLOOD CELLS AUTO 0.2 /100WBC; PLT - PLATELET COUNT 148 10^3/uL (130-450); RED BLOOD COUNT 3.48 10^6/uL (4.20-5.40); RED CELL DISTRIBUTION WIDTH 17.4 % (12.0-15.0); VBG PH 7.306 (7.31-7.41); WHITE BLOOD COUNT 15.9 x10^3/uL (4.8-10.8)
[2023-01-14 04:50] LABS: SLIDE REVIEW? Indicated
[2023-01-14 04:53] LABS: CREATININE 1.3 mg/dL (0.4-1.0)
[2023-01-14] MEDS: DEXTROSE 5% 1,000 ML IV SCH ×2 (05:02→06:17)
[2023-01-14] MEDS: SODIUM CHLORIDE FLUSH 0.9% 10 ML SYRINGE IVP SCH ×5 (05:03→23:24)
[2023-01-14] MEDS: METOPROLOL 5 MG/5 ML VIAL IVP PRN ×3 (05:04→21:12)
[2023-01-14 05:05] LABS: PLATELET MORPHOLOGY NORMAL APPEARANCE (NORMAL)
[2023-01-14 05:06] LABS: PLATELET ESTIMATE, MANUAL NORMAL (130-450,000) (NORMAL); WBC MORPHOLOGY (MULTIPLE) NORMAL APPEARANCE (NORMAL)
[2023-01-14] MEDS ORDERED: PPN (CLINIMIX E 4.25/5) 1,000 ML IV SCH (07:00)
[2023-01-14] MEDS: POTASSIUM CHLORIDE 20 MEQ/15 ML UDC PO SCH (08:46)
[2023-01-14] MEDS: APIXABAN 5 MG TABLET PO SCH ×2 (08:46→20:46)
[2023-01-14] MEDS: INSULIN LISPRO 300 UNIT/3 ML PEN SUBQ SCH ×4 (08:50→20:47)
[2023-01-14] MEDS: LOPERAMIDE 2 MG CAPSULE PO PRN ×2 (13:19→20:46)
[2023-01-14] MEDS: FAT EMULSION 20% 250 ML IV SCH (18:02)
[2023-01-14] MEDS: PPN (CLINIMIX E 4.25/5) 2,000 ML with MULTIVITAMIN 10 ML, TRACE ELEMENTS 1 ML IV SCH ×3 (18:09)
[2023-01-14] MEDS: MIN OIL/DIMETHICON/COCONUT OIL 92 GM TUBE TOP PRN ×2 (20:46→23:12)
[2023-01-14] MEDS: INSULIN GLARGINE-YFGN 300 UNIT/3 ML PEN SUBQ SCH (20:49)
[2023-01-14] MEDS: SODIUM CHLORIDE FLUSH 0.9% 10 ML SYRINGE IVP PRN (20:51)
[2023-01-15] MEDS: SODIUM CHLORIDE FLUSH 0.9% 10 ML SYRINGE IVP PRN (01:37)
[2023-01-15] MEDS: PIPERACILLIN/TAZOBACTAM 3.375 GM in SODIUM CHLORIDE 0.9% MINIBAG 100 ML IV SCH ×3 (01:37→17:22)
[2023-01-15] MEDS: METOPROLOL 5 MG/5 ML VIAL IVP PRN (03:39)
[2023-01-15 04:04] LABS: BASOPHILS % (AUTO) 0.6 %; CALCIUM, IONIZED 1.2 mmol/L (1.15-1.33); EOSINOPHILS % (AUTO) 1.7 %; HCT - HEMATOCRIT 37.2 % (37.0-47.0); LYMPHOCYTES % (AUTO) 7.6 %; MEAN CORPUSCULAR HEMOGLOBIN 33.5 pg (27.0-31.0); MEAN CORPUSCULAR HGB CONC 32.3 g/dL (32.0-36.0); MEAN CORPUSCULAR VOLUME 103.9 fL (81.0-99.0); MEAN PLATELET VOLUME 10.8 fL (7.9-10.8); MONOCYTES % (AUTO) 5.7 %; NEUTROPHILS % (AUTO) 79.2 %; PLT - PLATELET COUNT 170 10^3/uL (130-450); RED BLOOD COUNT 3.58 10^6/uL (4.20-5.40); RED CELL DISTRIBUTION WIDTH 16.9 % (12.0-15.0); VBG PH 7.299 (7.31-7.41); WHITE BLOOD COUNT 20.6 x10^3/uL (4.8-10.8)
[2023-01-15 04:07] LABS: SLIDE REVIEW? Indicated
[2023-01-15 04:21] LABS: ALBUMIN 2.4 g/dL (3.2-5.5); ALBUMIN/GLOBULIN RATIO 1.1 (1.0-2.2); BILIRUBIN,TOTAL 0.5 mg/dL (0.2-1.0); CALCIUM 8.2 mg/dL (8.5-10.3); CREATININE 1.3 mg/dL (0.4-1.0); PHOSPHORUS 4.3 mg/dL (2.5-4.6); POTASSIUM 4.3 mmol/L (3.5-5.0); TOTAL PROTEIN 4.6 g/dL (6.7-8.2)
[2023-01-15 04:27] LABS: ABNORMAL LYMPHS % (MANUAL) 0 %; BAND NEUTROPHILS % (MANUAL) 8 %; BASOPHILS # (MANUAL) 0.2 10^3/uL (0-0.1); BASOPHILS % (MANUAL) 1 %; EOSINOPHILS # (MANUAL) 0.2 10^3/uL (0-0.7); LYMPHOCYTES # (MANUAL) 1.4 10^3/uL (1.5-3.5); LYMPHOCYTES % (MANUAL) 7 %; MONOCYTES # (MANUAL) 0.4 10^3/uL (0.0-1.0); MYELOCYTES % (MANUAL) 1 %; NEUTROPHILS # (MANUAL) 18.1 10^3/uL (1.5-6.6)
[2023-01-15 04:28] LABS: DIFFERENTIAL COMMENT MANUAL DIFFERENTIAL; PLATELET ESTIMATE, MANUAL NORMAL (130-450,000) (NORMAL); PLATELET MORPHOLOGY NORMAL APPEARANCE (NORMAL); WBC MORPHOLOGY (MULTIPLE) NORMAL APPEARANCE (NORMAL)
[2023-01-15] MEDS: INSULIN LISPRO 300 UNIT/3 ML PEN SUBQ SCH ×4 (09:00→21:34)
[2023-01-15] MEDS: LOPERAMIDE 2 MG CAPSULE PO PRN ×2 (09:01→15:41)
[2023-01-15] MEDS: APIXABAN 5 MG TABLET PO SCH ×2 (09:01→21:32)
[2023-01-15] MEDS: SODIUM CHLORIDE FLUSH 0.9% 10 ML SYRINGE IVP SCH ×2 (09:01→17:23)
--- NOTE | 2023-01-15 17:26 | PROVIDER PROGRESS NOTE ---
Progress Note Assessment/Plan - Problem List (1) Type 2 diabetes mellitus Qualifiers: Diabetes mellitus custodial insulin use: with custodial use (2) Atrial fibrillation with RVR Assessment/Plan: Patient has history of rate controlled atrial fibrillation and is on anticoagulation. She takes metoprolol and Xarelto. Patient was transferred to the unit December 13 due to RVR atrial fibrillation and was controlled with IV metoprolol pushes as needed. (3) Acute renal failure Qualifiers: Acute renal failure type: unspecified Qualified Code(s): N17.9 - Acute kidney failure, unspecified (5) Diarrhea Qualifiers: Diarrhea type: unspecified type Qualified Code(s): R19.7 - Diarrhea, unspecified Assessment/Plan: Somewhat dehydrated from diarrhea times several weeks. C. difficile was negative. On January 12. January 13 there were no reports of diarrhea. CT of abdomen did show air-fluid levels in the bowel so even though she does not have any diarrhea she certainly had some present inside her bowel on CT (7) Pancreatic cancer Assessment/Plan: Patient with stage IV pancreatic cancer. Getting treatment for cancer since [address] [facility]. She was on Abraxane and gent sit to being from 2020 to July 2022 with minimal tumor response. She was changed to FOLFIRI which reduced tumor antigens injury increased mass size however now is still having an issue and to consider further treatments at [facility] once current acute condition improves (8) MINA (acute kidney injury) Assessment/Plan: Renal function is slowly improving with initial lab on January 11 of BUN of 39 creatinine 3.4 with GFR of 13 on January 12 BUN 35 creatinine 2.0 on January 14, 1932 and 1.5 - Current Meds Current Meds: Current Medications Generic Name Dose Route Start Last Admin Trade Name Freq PRN Reason Stop Dose Admin Apixaban 5 mg 01/12/23 21:00 01/14/23 08:46 Apixaban 5 Mg Tablet PO 5 mg BID PRAVEENA Administration Fat Emulsion Intravenous 250 mls @ 21 mls/hr 01/12/23 19:00 01/14/23 06:17 Intralipid 20% IV 0 mls/hr 1900 PRAVEENA Infusion Piperacillin Sod/Tazobactam 100 mls @ 25 mls/hr 01/12/23 17:30 01/14/23 12:47 Sod 3.375 gm/ Sodium Chloride IV Infused Q8H [facility] Infusion Amino Acids/Electrolytes/Dextrose 1,000 mls @ 83 mls/hr 01/14/23 07:00 01/14/23 06:16 Clinimix E 4.25%-5% Solution IV 01/14/23 19:03 83 mls/hr ONCE [facility] Administration Protocol Insulin Human Lispro 2 - 10 unit 01/11/23 17:00 01/14/23 12:42 Insulin Lispro 300 Unit/3 Ml Pen SUBQ 4 unit 0800,1200,1700,2100 [facility] Administration Protocol Loperamide HCl 2 mg 01/11/23 15:37 01/14/23 13:19 Loperamide 2 Mg Capsule PO 2 mg QID PRN Administration Diarrhea Metoprolol Tartrate 5 mg 01/12/23 15:36 01/14/23 13:19 Metoprolol 5 Mg/5 Ml Vial IVP 5 mg Q6H PRN Administration afib w RVR Mineral Oil 1 applic 01/11/23 15:36 01/12/23 22:24 Min Oil/Dimethicon/Coconut Oil 92 Gm Tube TOP 1 applic PRN PRN Administration Skin Care Morphine Sulfate 2 mg 01/12/23 17:40 01/13/23 05:15 Morphine 2 Mg/Ml Carpuject IVP 2 mg Q2HR PRN Administration Severe Pain (Level 7-10) Oxycodone HCl 5 mg 01/11/23 12:28 01/13/23 22:42 Oxycodone 5 Mg Tablet PO 5 mg Q4HR PRN Administration Pain 5 to 7 Sodium Chloride 10 ml 01/11/23 12:28 01/12/23 18:27 Sodium Chloride Flush 0.9% 10 Ml Syringe IVP 30 ml PRN PRN Administration NEEDED PER PROVIDER ORDERS Sodium Chloride 10 ml 01/11/23 17:00 01/14/23 08:50 Sodium Chloride Flush 0.9% 10 Ml Syringe IVP 10 ml 0100,0900,1700 [facility] Administration - Lab Result Fish Bone Diagrams: 01/14/23 04:30 01/14/23 04:30 - Additional Planning My Orders: My Active Orders 01/14/23 11:07 Straight Catheter Insertion [RC] ONCE 01/14/23 21:00 Insulin Glargine-Yfgn [Semglee] 10 unit SUBQ QPM Subjective - Subjective Patient Reports: Other (Slightly improved from yesterday but still very ill- appearing) Objective Vital Signs: Vital Signs - 24 hr 01/13/23 01/13/23 01/13/23 17:00 18:00 19:00 Temperature 36.4 C L Heart Rate [ 114 H 109 H 109 H Monitoring electrodes] Respiratory 15 18 13 Rate Blood Pressure Blood Pressure 107/67 103/64 104/73 [Right Brachial artery] O2 Saturation 100 100 100 01/13/23 01/13/23 01/13/23 20:00 21:00 21:06 Temperature Heart Rate [ 109 H 99 Monitoring electrodes] Respiratory 17 18 Rate Blood Pressure 109/76 Blood Pressure 89/65 L 109/76 [Right Brachial artery] O2 Saturation 100 100 01/13/23 01/13/23 01/13/23 21:35 22:00 22:30 Temperature 36.5 C Heart Rate [ 112 H 130 H Monitoring electrodes] Respiratory 12 Rate Blood Pressure 109/76 Blood Pressure 100/75 [Right Brachial artery] O2 Saturation 100 01/13/23 01/13/23 01/13/23 22:37 22:47 23:00 Temperature Heart Rate [ 125 H 100 Monitoring electrodes] Respiratory 15 Rate Blood Pressure 100/75 Blood Pressure 78/52 L [Right Brachial artery] O2 Saturation 100 01/13/23 01/14/23 01/14/23 23:17 00:00 01:00 Temperature Heart Rate [ 109 H 99 Monitoring electrodes] Respiratory 14 14 Rate Blood Pressure 99/65 Blood Pressure 96/63 99/65 [Right Brachial artery] O2 Saturation 100 100 01/14/23 01/14/23 01/14/23 02:00 03:00 03:58 Temperature Heart Rate [ 95 100 129 H Monitoring electrodes] Respiratory 14 10 L Rate Blood Pressure Blood Pressure 89/63 L 105/69 [Right Brachial artery] O2 Saturation 100 100 01/14/23 01/14/23 01/14/23 04:00 05:00 05:04 Temperature Heart Rate [ 98 109 H Monitoring electrodes] Respiratory 16 17 Rate Blood Pressure 101/67 Blood Pressure 108/77 101/67 [Right Brachial artery] O2 Saturation 100 100 01/14/23 01/14/23 01/14/23 05:25 06:00 07:00 Temperature Heart Rate [ 115 H 120 H Monitoring electrodes] Respiratory 17 10 L Rate Blood Pressure 101/67 Blood Pressure 93/66 86/61 L [Right Brachial artery] O2 Saturation 100 100 01/14/23 01/14/23 01/14/23 08:00 09:00 09:42 Temperature 36.3 C L Heart Rate [ 110 H 120 H Monitoring electrodes] Respiratory 19 18 Rate Blood Pressure Blood Pressure 103/72 103/84 H [Right Brachial artery] O2 Saturation 98 97 01/14/23 01/14/23 01/14/23 10:00 11:00 12:00 Temperature Heart Rate [ 102 H 104 H 111 H Monitoring electrodes] Respiratory 16 16 19 Rate Blood Pressure Blood Pressure 107/79 110/76 114/78 [Right Brachial artery] O2 Saturation 100 100 100 01/14/23 01/14/23 01/14/23 12:44 13:00 13:19 Temperature 36.3 C L Heart Rate [ 121 H Monitoring electrodes] Respiratory 17 Rate Blood Pressure 117/75 Blood Pressure 117/75 [Right Brachial artery] O2 Saturation 100 01/14/23 01/14/23 01/14/23 13:49 14:00 15:00 Temperature Heart Rate [ 103 H 93 Monitoring electrodes] Respiratory 20 15 Rate Blood Pressure 103/75 Blood Pressure 103/75 81/69 L [Right Brachial artery] O2 Saturation 100 100 01/14/23 16:00 Temperature Heart Rate [ 115 H Monitoring electrodes] Respiratory 19 Rate Blood Pressure Blood Pressure 87/42 L [Right Brachial artery] O2 Saturation 100 Oxygen O2 Source Room air I&O (Last 24 Hrs): Intake and Output Totals x24h 01/12/23 01/13/23 01/14/23 23:59 23:59 23:59 Intake Total 3690.750 3254.75 2403.333 Output Total 700 1400 Balance 3690.750 2554.75 1003.333 General: Other (Ill-appearing but may be a little bit better than yesterday very slow to respond to questions but she does) HEENT: Atraumatic, PERRLA, EOMI Neck: Supple Lymphatic: no adenopathy Neuro: Alert Cardiovascular: Regular rate, No murmurs Respiratory: No respiratory distress Abdomen: Normal bowel sounds Extremities: No edema Skin: No rashes - Results Results: Laboratory Results WBC 15.9 x10^3/uL (4.8-10.8) H 01/14/23 04:30 RBC 3.48 10^6/uL (4.20-5.40) L 01/14/23 04:30 Hgb 11.8 g/dL (12.0-16.0) L 01/14/23 04:30 Hct 35.8 % (37.0-47.0) L 01/14/23 04:30 MCV 102.9 fL (81.0-99.0) H 01/14/23 04:30 MCH 33.9 pg (27.0-31.0) H 01/14/23 04:30 MCHC 33.0 g/dL (32.0-36.0) 01/14/23 04:30 RDW 17.4 % (12.0-15.0) H 01/14/23 04:30 Plt Count 148 10^3/uL (130-450) 01/14/23 04:30 MPV 11.4 fL (7.9-10.8) H 01/14/23 04:30 Neut # (Auto) 12.2 10^3/uL (1.5-6.6) H 01/14/23 04:30 Lymph # (Auto) 1.4 10^3/uL (1.5-3.5) L 01/14/23 04:30 Ashe # (Auto) 1.1 10^3/uL (0.0-1.0) H 01/14/23 04:30 Eos # (Auto) 0.3 10^3/uL (0.0-0.7) 01/14/23 04:30 Baso # (Auto) 0.1 10^3/uL (0.0-0.1) 01/14/23 04:30 Absolute Nucleated RBC 0.03 x10^3/uL 01/14/23 04:30 Total Counted 100 01/12/23 14:19 Band Neuts % (Manual) 4 % (0-10) 01/12/23 14:19 Reactive Lymphs % (Man) 3 % 01/11/23 10:08 Abnorm Lymph % (Manual) 0 % 01/12/23 14:19 Myelocytes % 1 % (-0) H 01/11/23 10:08 Nucleated RBC % 0.2 /100WBC 01/14/23 04:30 Neutrophils # (Manual) 18.9 10^3/uL (1.5-6.6) H 01/12/23 14:19 Lymphocytes # (Manual) 0.2 10^3/uL (1.5-3.5) L 01/12/23 14:19 Monocytes # (Manual) 1.0 10^3/uL (0.0-1.0) 01/12/23 14:19 Eosinophils # (Manual) 0.0 10^3/uL (0-0.7) 01/12/23 14:19 Basophils # (Manual) 0.0 10^3/uL (0-0.1) 01/12/23 14:19 Differential Comment MANUAL DIFFERENTIAL 01/12/23 14:19 Manual Slide Review Indicated 01/14/23 04:30 WBC Morphology NORMAL APPEARANCE (NORMAL) 01/14/23 04:30 Platelet Estimate NORMAL (130-450,000) (NORMAL) 01/14/23 04:30 Platelet Morphology NORMAL APPEARANCE (NORMAL) 01/14/23 04:30 RBC Morph Micro Appear 1+ ANISOCYTOSIS (NORMAL) 1+ MACROCYTOSIS (NORMAL) 1+ TEARDROP CELLS (NORMAL) 2+ SANDRA CELLS (NORMAL) 2+ POIKILOCYTOSIS (NORMAL) 01/14/23 04:30 RBC Morph Micro Appear 1+ ANISOCYTOSIS (NORMAL) 1+ MACROCYTOSIS (NORMAL) 1+ TEARDROP CELLS (NORMAL) 2+ SANDRA CELLS (NORMAL) 2+ POIKILOCYTOSIS (NORMAL) 01/14/23 04:30 RBC Morph Micro Appear 1+ ANISOCYTOSIS (NORMAL) 1+ MACROCYTOSIS (NORMAL) 1+ TEARDROP CELLS (NORMAL) 2+ SANDRA CELLS (NORMAL) 2+ POIKILOCYTOSIS (NORMAL) 01/14/23 04:30 RBC Morph Micro Appear 1+ ANISOCYTOSIS (NORMAL) 1+ MACROCYTOSIS (NORMAL) 1+ TEARDROP CELLS (NORMAL) 2+ SANDRA CELLS (NORMAL) 2+ POIKILOCYTOSIS (NORMAL) 01/14/23 04:30 RBC Morph Micro Appear 1+ ANISOCYTOSIS (NORMAL) 1+ MACROCYTOSIS (NORMAL) 1+ TEARDROP CELLS (NORMAL) 2+ SANDRA CELLS (NORMAL) 2+ POIKILOCYTOSIS (NORMAL) 01/14/23 04:30 PT 13.4 secs (9.9-12.6) H 01/11/23 10:08 INR 1.2 (0.8-1.2) 01/11/23 10:08 VBG pH 7.306 (7.31-7.41) L 01/14/23 04:30 Ionized Calcium 1.23 mmol/L (1.15-1.33) 01/14/23 04:30 Sodium 141 mmol/L (135-145) 01/14/23 04:30 Potassium 4.0 mmol/L (3.5-5.0) 01/14/23 04:30 Chloride 121 mmol/L (101-111) H* 01/14/23 04:30 Carbon Dioxide 13 mmol/L (21-32) L 01/14/23 04:30 Anion Gap 7.0 (6-13) 01/14/23 04:30 BUN 43 mg/dL (6-20) H 01/14/23 04:30 Creatinine 1.3 mg/dL (0.4-1.0) H 01/14/23 04:30 Estimated GFR (MDRD) 40 (>89) L 01/14/23 04:30 Glucose 262 mg/dL (70-100) H 01/14/23 04:30 POC Whole Bld Glucose 225 mg/dL (70 - 100) H 01/14/23 12:12 Estimat Average Glucose 143 mg/dL (70-100) H 01/12/23 05:11 Hemoglobin A1c % 6.6 % (4.27-6.07) H 01/12/23 05:11 Lactic Acid 2.4 mmol/L (0.5-2.2) H 01/12/23 13:51 Calcium 8.0 mg/dL (8.5-10.3) L 01/14/23 04:30 Phosphorus 3.4 mg/dL (2.5-4.6) 01/13/23 04:30 Magnesium 2.5 mg/dL (1.7-2.8) 01/13/23 04:30 Total Bilirubin 0.8 mg/dL (0.2-1.0) 01/11/23 10:08 AST 15 IU/L (10-42) 01/11/23 10:08 ALT 20 IU/L (10-60) 01/11/23 10:08 Alkaline Phosphatase 148 IU/L (42-121) H 01/11/23 10:08 Total Creatine Kinase 43 IU/L (22-269) 01/11/23 10:08 Troponin I High Sens 45.8 ng/L (2.3-14.8) H* 01/12/23 17:20 Total Protein 6.0 g/dL (6.7-8.2) L 01/11/23 10:08 Albumin 3.6 g/dL (3.2-5.5) 01/11/23 10:08 Globulin 2.4 g/dL (2.1-4.2) 01/11/23 10:08 Albumin/Globulin Ratio 1.5 (1.0-2.2) 01/11/23 10:08 Prealbumin 10 mg/dL (18-45) L 01/13/23 04:30 Triglycerides 114 mg/dL (-149) 01/13/23 04:30 Lipase 30 U/L (22-51) 01/11/23 10:08 TSH 1.00 uIU/mL (0.34-5.60) 01/11/23 10:08 Urine Color YELLOW 01/11/23 13:02 Urine Clarity CLEAR (CLEAR) 01/11/23 13:02 Urine pH 6.0 PH (5.0-7.5) 01/11/23 13:02 Ur Specific Maxwell 1.020 (1.002-1.030) 01/11/23 13:02 Urine Protein TRACE mg/dL (NEGATIVE) 01/11/23 13:02 Urine Glucose (UA) NEGATIVE mg/dL (NEGATIVE) 01/11/23 13:02 Urine Ketones NEGATIVE mg/dL (NEGATIVE) 01/11/23 13:02 Urine Occult Blood NEGATIVE (NEGATIVE) 01/11/23 13:02 Urine Nitrite NEGATIVE (NEGATIVE) 01/11/23 13:02 Urine Bilirubin NEGATIVE (NEGATIVE) 01/11/23 13:02 Urine Urobilinogen 0.2 (NORMAL) E.U./dL (NORMAL) 01/11/23 13:02 Ur Leukocyte Esterase NEGATIVE (NEGATIVE) 01/11/23 13:02 Ur Microscopic Review NOT INDICATED 01/11/23 13:02 Urine Culture Comments NOT INDICATED 01/11/23 13:02 Nasal Adenovirus (PCR) NOT DETECTED 01/11/23 10:08 Nasal B. parapertussis DNA (PCR) NOT DETECTED 01/11/23 10:08 Nasal Coronavir 229E PCR NOT DETECTED 01/11/23 10:08 Nasal Coronavir HKU1 PCR NOT DETECTED 01/11/23 10:08 Nasal Coronavir NL63 PCR NOT DETECTED 01/11/23 10:08 Nasal Coronavir OC43 PCR NOT DETECTED 01/11/23 10:08 Nasal Enterovir/Rhinovir PCR NOT DETECTED 01/11/23 10:08 Nasal Influenza B PCR NOT DETECTED 01/11/23 10:08 Nasal Influenza A PCR NOT DETECTED 01/11/23 10:08 Nasal Parainfluen 1 PCR NOT DETECTED 01/11/23 10:08 Nasal Parainfluen 2 PCR NOT DETECTED 01/11/23 10:08 Nasal Parainfluen 3 PCR NOT DETECTED 01/11/23 10:08 Nasal Parainfluen 4 PCR NOT DETECTED 01/11/23 10:08 Nasal RSV (PCR) NOT DETECTED 01/11/23 10:08 Nasal Screen MRSA (PCR) NEGATIVE (NEGATIVE) 01/12/23 18:00 Nasal B.pertussis DNA PCR NOT DETECTED 01/11/23 10:08 Nasal C.pneumoniae (PCR) NOT DETECTED 01/11/23 10:08 Ariel Human Metapneumo PCR NOT DETECTED 01/11/23 10:08 Nasal M.pneumoniae (PCR) NOT DETECTED 01/11/23 10:08 Nasal SARS-CoV-2 (PCR) NOT DETECTED 01/11/23 10:08 Stl C. diff Tox B Gene NEGATIVE (NEGATIVE) 01/11/23 15:15 Sepsis Event Note (H) - Evaluation Current Stage of Sepsis: Ruled out ABX Reporting Has patient been on IV antibiotics over the past 48 hours?: No Current Medications - Current Medications Current Medications: Acetaminophen (Acetaminophen 325 Mg Tablet) 650 mg PO Q4HR PRN PRN Reason: Pain 1 to 4, or Fever Lipase/Protease/Amylase (Lipase/Protease/Amylase Capsule) 5 cap PO BID PRN PRN Reason: IF EATING SOLID FOODS Apixaban (Apixaban 5 Mg Tablet) 5 mg PO BID [facility] Last Admin: 01/14/23 08:46 Dose: 5 mg Fat Emulsion Intravenous (Intralipid 20%) 250 mls @ 21 mls/hr IV 1900 PRAVEENA Last Infusion: 01/14/23 06:17 Dose: 0 mls/hr Piperacillin Sod/Tazobactam (Sod 3.375 gm/ Sodium Chloride) 100 mls @ 25 mls/hr IV Q8H PRAVEENA Last Infusion: 01/14/23 12:47 Dose: Infused Amino Acids/Electrolytes/Dextrose (Clinimix E 4.25%-5% Solution) 1,000 mls @ 83 mls/hr IV ONCE PRAVEENA; Protocol Stop: 01/14/23 19:03 Last Admin: 01/14/23 06:16 Dose: 83 mls/hr Multivitamins 10 ml/ TRACE ELEMENTS 1 ml/ Amino Acids/Electrolytes/Dextrose 2,011 mls @ 83 mls/hr IV 1900 PRAVEENA; Protocol Insulin Glargine-yfgn (Insulin Glargine-Yfgn 300 Unit/3 Ml Pen) 10 unit SUBQ QPM PRAVEENA Insulin Human Lispro (Insulin Lispro 300 Unit/3 Ml Pen) 2 - 10 unit SUBQ 0800,1200,1700,2100 PRAVEENA; Protocol Last Admin: 01/14/23 12:42 Dose: 4 unit Loperamide HCl (Loperamide 2 Mg Capsule) 2 mg PO QID PRN PRN Reason: Diarrhea Last Admin: 01/14/23 13:19 Dose: 2 mg Metoprolol Tartrate (Metoprolol 5 Mg/5 Ml Vial) 5 mg IVP Q6H PRN PRN Reason: afib w RVR Last Admin: 01/14/23 13:19 Dose: 5 mg Mineral Oil (Min Oil/Dimethicon/Coconut Oil 92 Gm Tube) 1 applic TOP PRN PRN PRN Reason: Skin Care Last Admin: 01/12/23 22:24 Dose: 1 applic Morphine Sulfate (Morphine 2 Mg/Ml Carpuject) 2 mg IVP Q2HR PRN PRN Reason: Severe Pain (Level 7-10) Last Admin: 01/13/23 05:15 Dose: 2 mg Ondansetron HCl (Ondansetron Odt 4 Mg Tablet) 4 mg TL Q6HR PRN PRN Reason: Nausea / Vomiting Ondansetron HCl (Ondansetron 4 Mg/2 Ml Vial) 4 mg IVP Q6HR PRN PRN Reason: Nausea / Vomiting Oxycodone HCl (Oxycodone 5 Mg Tablet) 5 mg PO Q4HR PRN PRN Reason: Pain 5 to 7 Last Admin: 01/13/23 22:42 Dose: 5 mg Sodium Chloride (Sodium Chloride Flush 0.9% 10 Ml Syringe) 10 ml IVP PRN PRN PRN Reason: NEEDED PER PROVIDER ORDERS Last Admin: 01/12/23 18:27 Dose: 30 ml Sodium Chloride (Sodium Chloride Flush 0.9% 10 Ml Syringe) 10 ml IVP 0100,0900,1700 PRAVEENA Last Admin: 01/14/23 08:50 Dose: 10 ml
[2023-01-15] MEDS: PPN (CLINIMIX E 4.25/5) 2,000 ML with MULTIVITAMIN 10 ML, TRACE ELEMENTS 1 ML IV SCH ×3 (18:44)
[2023-01-15] MEDS: FAT EMULSION 20% 250 ML IV SCH (18:44)
[2023-01-15] MEDS: INSULIN GLARGINE-YFGN 300 UNIT/3 ML PEN SUBQ SCH (21:32)
[2023-01-16] MEDS: PIPERACILLIN/TAZOBACTAM 3.375 GM in SODIUM CHLORIDE 0.9% MINIBAG 100 ML IV SCH (01:23)
[2023-01-16] MEDS: METOPROLOL 5 MG/5 ML VIAL IVP PRN (01:23)
[2023-01-16] MEDS: SODIUM CHLORIDE FLUSH 0.9% 10 ML SYRINGE IVP SCH ×3 (01:24→18:46)
[2023-01-16] MEDS: SODIUM CHLORIDE FLUSH 0.9% 10 ML SYRINGE IVP PRN (04:24)
[2023-01-16 05:02] LABS: CALCIUM, IONIZED 1.19 mmol/L (1.15-1.33); VBG PH 7.287 (7.31-7.41)
--- NOTE | 2023-01-16 08:54 | CT Report ---
PROCEDURE: HEAD WO INDICATIONS: encephalopathy TECHNIQUE: Noncontrast 4.5 mm thick angled axial sections acquired from the foramen magnum to the vertex. For r adiation dose reduction, the following was used: automated exposure control, adjustment of mA and/or kV according to patient size. COMPARISON: None. FINDINGS: Image quality: Excellent. CSF spaces: Basal cisterns are patent. No extra-axial fluid collections. Ventricles are normal in size and shape. Brain: No midline shift. No intracranial masses or hemorrhage. Busby-white matter interface is norm al. Skull and face: Calvarium and visualized facial bones are intact, without suspicious lesions. Sinuses: Visualized sinuses and mastoids are clear. IMPRESSION: No acute intracranial abnormality. Reviewed by: Jalyn Ordoñez MD on 01/16/2023 8:53 AM PDT Approved by: Jalyn Ordoñez MD on 01/16/2023 8:53 AM PDT Station ID: [id number]
[2023-01-16] MEDS: INSULIN LISPRO 300 UNIT/3 ML PEN SUBQ SCH ×4 (09:09→20:54)
[2023-01-16] MEDS: APIXABAN 5 MG TABLET PO SCH ×2 (09:09→20:51)
[2023-01-16] MEDS: LOPERAMIDE 2 MG CAPSULE PO PRN ×2 (10:55→20:51)
--- NOTE | 2023-01-16 13:12 | PROVIDER PROGRESS NOTE ---
Progress Note Progress Note Assessment/Plan - Problem List (1) Type 2 diabetes mellitus Qualifiers: Diabetes mellitus technician terminal and repeater insulin use: with assisted use (2) Atrial fibrillation with RVR Assessment/Plan: Patient has history of rate controlled atrial fibrillation and is on anticoagulation. She takes metoprolol and Xarelto. Patient was transferred to the unit December 13 due to RVR atrial fibrillation and was controlled with IV metoprolol pushes as needed. (3) Acute renal failure Qualifiers: Acute renal failure type: unspecified Qualified Code(s): N17.9 - Acute kidney failure, unspecified Improved -January 16 GFR is 40 (5) Diarrhea Qualifiers: Diarrhea type: unspecified type Qualified Code(s): R19.7 - Diarrhea, unspecified Assessment/Plan: Somewhat dehydrated from diarrhea times several weeks. C. difficile was negative. On January 12. January 13 there were no reports of diarrhea. CT of abdomen did show air-fluid levels in the bowel so even though she does not have any diarrhea she certainly had some present inside her bowel on CT (7) Pancreatic cancer Assessment/Plan: Patient with stage IV pancreatic cancer. Getting treatment for cancer since [address] [facility]. She was on Abraxane and gent sit to being from 2020 to July 2022 with minimal tumor response. She was changed to FOLFIRI which reduced tumor antigens injury increased mass size [facility] now is still having an issue and to consider further treatments at [facility] once current acute condition improves (8) MINA (acute kidney injury) Assessment/Plan: Renal function is slowly improving with initial lab on January 11 of BUN of 39 creatinine 3.4 with GFR of 13 on January 12 BUN 35 creatinine 2.0 on January 14, 1932 and 1.5 Generalized weakness, subacute, present on admission -Seems to be improving gradually over the past few days -She was on IV Zosyn I will DC On January 16 as there does not seem to be any indication for this at this time - will get speech therapy for swallow eval to see if we can progress diet as tolerated -CT of head without contrast revealed no acute findings - Current Meds Current Meds: Current Medications Generic Name Dose Route Start Last Admin Trade Name Freq PRN Reason Stop Dose Admin Apixaban 5 mg 01/12/23 21:00 01/14/23 08:46 Apixaban 5 Mg Tablet PO 5 mg BID PRAVEENA Administration Fat Emulsion Intravenous 250 mls @ 21 mls/hr 01/12/23 19:00 01/14/23 06:17 Intralipid 20% IV 0 mls/hr [facility] Infusion Piperacillin Sod/Tazobactam 100 mls @ 25 mls/hr 01/12/23 17:30 01/14/23 12:47 Sod 3.375 gm/ Sodium Chloride IV Infused Q8H PRAVEENA Infusion Amino Acids/Electrolytes/Dextrose 1,000 mls @ 83 mls/hr 01/14/23 07:00 01/14/23 06:16 Clinimix E 4.25%-5% Solution IV 01/14/23 19:03 83 mls/hr ONCE PRAVEENA Administration Protocol Insulin Human Lispro 2 - 10 unit 01/11/23 17:00 01/14/23 12:42 Insulin Lispro 300 Unit/3 Ml Pen SUBQ 4 unit 0800,1200,1700,2100 [facility] Administration Protocol Loperamide HCl 2 mg 01/11/23 15:37 01/14/23 13:19 Loperamide 2 Mg Capsule PO 2 mg QID PRN Administration Diarrhea Metoprolol Tartrate 5 mg 01/12/23 15:36 01/14/23 13:19 Metoprolol 5 Mg/5 Ml Vial IVP 5 mg Q6H PRN Administration afib w RVR Mineral Oil 1 applic 01/11/23 15:36 01/12/23 22:24 Min Oil/Dimethicon/Coconut Oil 92 Gm Tube TOP 1 applic PRN PRN Administration Skin Care Morphine Sulfate 2 mg 01/12/23 17:40 01/13/23 05:15 Morphine 2 Mg/Ml Carpuject IVP 2 mg Q2HR PRN Administration Severe Pain (Level 7-10) Oxycodone HCl 5 mg 01/11/23 12:28 01/13/23 22:42 Oxycodone 5 Mg Tablet PO 5 mg Q4HR PRN Administration Pain 5 to 7 Sodium Chloride 10 ml 01/11/23 12:28 01/12/23 18:27 Sodium Chloride Flush 0.9% 10 Ml Syringe IVP 30 ml PRN PRN Administration NEEDED PER PROVIDER ORDERS Sodium Chloride 10 ml 01/11/23 17:00 01/14/23 08:50 Sodium Chloride Flush 0.9% 10 Ml Syringe IVP 10 ml 0100,0900,1700 [facility] Administration - Lab Result Fish Bone Diagrams: 01/14/23 04:30 01/14/23 04:30 - Additional Planning My Orders: My Active Orders 01/14/23 11:07 Straight Catheter Insertion [RC] ONCE 01/14/23 21:00 Insulin Glargine-Yfgn [Semglee] 10 unit SUBQ QPM Subjective - Subjective Patient Reports: Other (Patient is more alert and interactive than yesterday. She does have some food on the table that she has been eating. Objective Vital Signs: Vital Signs - 24 hr 01/13/23 01/13/23 01/13/23 17:00 18:00 19:00 Temperature 36.4 C L Heart Rate [ 114 H 109 H 109 H Monitoring electrodes] Respiratory 15 18 13 Rate Blood Pressure Blood Pressure 107/67 103/64 104/73 [Right Brachial artery] O2 Saturation 100 100 100 01/13/23 01/13/23 01/13/23 20:00 21:00 21:06 Temperature Heart Rate [ 109 H 99 Monitoring electrodes] Respiratory 17 18 Rate Blood Pressure 109/76 Blood Pressure 89/65 L 109/76 [Right Brachial artery] O2 Saturation 100 100 01/13/23 01/13/23 01/13/23 21:35 22:00 22:30 Temperature 36.5 C Heart Rate [ 112 H 130 H Monitoring electrodes] Respiratory 12 Rate Blood Pressure 109/76 Blood Pressure 100/75 [Right Brachial artery] O2 Saturation 100 01/13/23 01/13/23 01/13/23 22:37 22:47 23:00 Temperature Heart Rate [ 125 H 100 Monitoring electrodes] Respiratory 15 Rate Blood Pressure 100/75 Blood Pressure 78/52 L [Right Brachial artery] O2 Saturation 100 01/13/23 01/14/23 01/14/23 23:17 00:00 01:00 Temperature Heart Rate [ 109 H 99 Monitoring electrodes] Respiratory 14 14 Rate Blood Pressure 99/65 Blood Pressure 96/63 99/65 [Right Brachial artery] O2 Saturation 100 100 01/14/23 01/14/23 01/14/23 02:00 03:00 03:58 Temperature Heart Rate [ 95 100 129 H Monitoring electrodes] Respiratory 14 10 L Rate Blood Pressure Blood Pressure 89/63 L 105/69 [Right Brachial artery] O2 Saturation 100 100 05/08/2701/14/23 01/14/23 04:00 05:00 05:04 Temperature Heart Rate [ 98 109 H Monitoring electrodes] Respiratory 16 17 Rate Blood Pressure 101/67 Blood Pressure 108/77 101/67 [Right Brachial artery] O2 Saturation 100 100 01/14/23 01/14/23 01/14/23 05:25 06:00 07:00 Temperature Heart Rate [ 115 H 120 H Monitoring electrodes] Respiratory 17 10 L Rate Blood Pressure 101/67 Blood Pressure 93/66 86/61 L [Right Brachial artery] O2 Saturation 100 100 01/14/23 01/14/23 01/14/23 08:00 09:00 09:42 Temperature 36.3 C L Heart Rate [ 110 H 120 H Monitoring electrodes] Respiratory 19 18 Rate Blood Pressure Blood Pressure 103/72 103/84 H [Right Brachial artery] O2 Saturation 98 97 01/14/23 01/14/23 01/14/23 10:00 11:00 12:00 Temperature Heart Rate [ 102 H 104 H 111 H Monitoring electrodes] Respiratory 16 16 19 Rate Blood Pressure Blood Pressure 107/79 110/76 114/78 [Right Brachial artery] O2 Saturation 100 100 100 01/14/23 01/14/23 01/14/23 12:44 13:00 13:19 Temperature 36.3 C L Heart Rate [ 121 H Monitoring electrodes] Respiratory 17 Rate Blood Pressure 117/75 Blood Pressure 117/75 [Right Brachial artery] O2 Saturation 100 01/14/23 01/14/23 01/14/23 13:49 14:00 15:00 Temperature Heart Rate [ 103 H 93 Monitoring electrodes] Respiratory 20 15 Rate Blood Pressure 103/75 Blood Pressure 103/75 81/69 L [Right Brachial artery] O2 Saturation 100 100 01/14/23 16:00 Temperature Heart Rate [ 115 H Monitoring electrodes] Respiratory 19 Rate Blood Pressure Blood Pressure 87/42 L [Right Brachial artery] O2 Saturation 100 Oxygen O2 Source Room air I&O (Last 24 Hrs): Intake and Output Totals x24h 01/12/23 01/13/23 01/14/23 23:59 23:59 23:59 Intake Total 3690.750 3254.75 2403.333 Output Total 700 1400 Balance 3690.750 2554.75 1003.333 General: Other (Ill-appearing but may be a little bit better than yesterday very slow to respond to questions but she does) HEENT: Atraumatic, PERRLA, EOMI Neck: Supple Lymphatic: no adenopathy Neuro: Alert Cardiovascular: Regular rate, No murmurs Respiratory: No respiratory distress Abdomen: Normal bowel sounds Extremities: No edema Skin: No rashes - Results Results: Laboratory Results WBC 15.9 x10^3/uL (4.8-10.8) H 01/14/23 04:30 RBC 3.48 10^6/uL (4.20-5.40) L 01/14/23 04:30 Hgb 11.8 g/dL (12.0-16.0) L 01/14/23 04:30 Hct 35.8 % (37.0-47.0) L 01/14/23 04:30 MCV 102.9 fL (81.0-99.0) H 01/14/23 04:30 MCH 33.9 pg (27.0-31.0) H 01/14/23 04:30 MCHC 33.0 g/dL (32.0-36.0) 01/14/23 04:30 RDW 17.4 % (12.0-15.0) H 01/14/23 04:30 Plt Count 148 10^3/uL (130-450) 01/14/23 04:30 MPV 11.4 fL (7.9-10.8) H 01/14/23 04:30 Neut # (Auto) 12.2 10^3/uL (1.5-6.6) H 01/14/23 04:30 Lymph # (Auto) 1.4 10^3/uL (1.5-3.5) L 01/14/23 04:30 [place] # (Auto) 1.1 10^3/uL (0.0-1.0) H 01/14/23 04:30 Eos # (Auto) 0.3 10^3/uL (0.0-0.7) 01/14/23 04:30 Baso # (Auto) 0.1 10^3/uL (0.0-0.1) 01/14/23 04:30 Absolute Nucleated RBC 0.03 x10^3/uL 01/14/23 04:30 Total Counted 100 01/12/23 14:19 Band Neuts % (Manual) 4 % (0-10) 01/12/23 14:19 Reactive Lymphs % (Man) 3 % 01/11/23 10:08 Abnorm Lymph % (Manual) 0 % 01/12/23 14:19 Myelocytes % 1 % (-0) H 01/11/23 10:08 Nucleated RBC % 0.2 /100WBC 01/14/23 04:30 Neutrophils # (Manual) 18.9 10^3/uL (1.5-6.6) H 01/12/23 14:19 Lymphocytes # (Manual) 0.2 10^3/uL (1.5-3.5) L 01/12/23 14:19 Monocytes # (Manual) 1.0 10^3/uL (0.0-1.0) 01/12/23 14: Eosinophils # (Manual) 0.0 10^3/uL (0-0.7) 01/12/23 14:19 Basophils # (Manual) 0.0 10^3/uL (0-0.1) 01/12/23 14:19 Differential Comment MANUAL DIFFERENTIAL 01/12/23 14:19 Manual Slide Review Indicated 01/14/23 04:30 WBC Morphology NORMAL APPEARANCE (NORMAL) 01/14/23 04:30 Platelet Estimate NORMAL (130-450,000) (NORMAL) 01/14/23 04:30 Platelet Morphology NORMAL APPEARANCE (NORMAL) 01/14/23 04:30 RBC Morph Micro Appear 1+ ANISOCYTOSIS (NORMAL) 1+ MACROCYTOSIS (NORMAL) 1+ TEARDROP CELLS (NORMAL) 2+ SANDRA CELLS (NORMAL) 2+ POIKILOCYTOSIS (NORMAL) 01/14/23 04:30 RBC Morph Micro Appear 1+ ANISOCYTOSIS (NORMAL) 1+ MACROCYTOSIS (NORMAL) 1+ TEARDROP CELLS (NORMAL) 2+ SANDRA CELLS (NORMAL) 2+ POIKILOCYTOSIS (NORMAL) 01/14/23 04:30 RBC Morph Micro Appear 1+ ANISOCYTOSIS (NORMAL) 1+ MACROCYTOSIS (NORMAL) 1+ TEARDROP CELLS (NORMAL) 2+ SANDRA CELLS (NORMAL) 2+ POIKILOCYTOSIS (NORMAL) 01/14/23 04:30 RBC Morph Micro Appear 1+ ANISOCYTOSIS (NORMAL) 1+ MACROCYTOSIS (NORMAL) 1+ TEARDROP CELLS (NORMAL) 2+ SANDRA CELLS (NORMAL) 2+ POIKILOCYTOSIS (NORMAL) 01/14/23 04:30 RBC Morph Micro Appear 1+ ANISOCYTOSIS (NORMAL) 1+ MACROCYTOSIS (NORMAL) 1+ TEARDROP CELLS (NORMAL) 2+ SANDRA CELLS (NORMAL) 2+ POIKILOCYTOSIS (NORMAL) 01/14/23 04:30 PT 13.4 secs (9.9-12.6) H 01/11/23 10:08 INR 1.2 (0.8-1.2) 01/11/23 10:08 VBG pH 7.306 (7.31-7.41) L 01/14/23 04:30 Ionized Calcium 1.23 mmol/L (1.15-1.33) 01/14/23 04:30 Sodium 141 mmol/L (135-145) 01/14/23 04:30 Potassium 4.0 mmol/L (3.5-5.0) 01/14/23 04:30 Chloride 121 mmol/L (101-111) H* 01/14/23 04:30 Carbon Dioxide 13 mmol/L (21-32) L 01/14/23 04:30 Anion Gap 7.0 (6-13) 01/14/23 04:30 BUN 43 mg/dL (6-20) H 01/14/23 04:30 Creatinine 1.3 mg/dL (0.4-1.0) H 01/14/23 04:30 Estimated GFR (MDRD) 40 (>89) L 01/14/23 04:30 Glucose 262 mg/dL (70-100) H 01/14/23 04:30 POC Whole Bld Glucose 225 mg/dL (70 - 100) H 01/14/23 12:12 Estimat Average Glucose 143 mg/dL (70-100) H 01/12/23 05:11 Hemoglobin A1c % 6.6 % (4.27-6.07) H 01/12/23 05:11 Lactic Acid 2.4 mmol/L (0.5-2.2) H 01/12/23 13:51 Calcium 8.0 mg/dL (8.5-10.3) L 01/14/23 04:30 Phosphorus 3.4 mg/dL (2.5-4.6) 01/13/23 04:30 Magnesium 2.5 mg/dL (1.7-2.8) 01/13/23 04:30 Total Bilirubin 0.8 mg/dL (0.2-1.0) 01/11/23 10:08 AST 15 IU/L (10-42) 01/11/23 10:08 ALT 20 IU/L (10-60) 01/11/23 10:08 Alkaline Phosphatase 148 IU/L (42-121) H 01/11/23 10:08 Total Creatine Kinase 43 IU/L (22-269) 01/11/23 10:08 Troponin I High Sens 45.8 ng/L (2.3-14.8) H* 01/12/23 17:20 Total Protein 6.0 g/dL (6.7-8.2) L 01/11/23 10:08 Albumin 3.6 g/dL (3.2-5.5) 01/11/23 10:08 Globulin 2.4 g/dL (2.1-4.2) 01/11/23 10:08 Albumin/Globulin Ratio 1.5 (1.0-2.2) 01/11/23 10:08 Prealbumin 10 mg/dL (18-45) L 01/13/23 04:30 Triglycerides 114 mg/dL (-149) 01/13/23 04:30 Lipase 30 U/L (22-51) 01/11/23 10:08 TSH 1.00 uIU/mL (0.34-5.60) 01/11/23 10:08 Urine Color YELLOW 01/11/23 13:02 Urine Clarity CLEAR (CLEAR) 01/11/23 13:02 Urine pH 6.0 PH (5.0-7.5) 01/11/23 13:02 Ur Specific [place] 1.020 (1.002-1.030) 01/11/23 13:02 Urine Protein TRACE mg/dL (NEGATIVE) 01/11/23 13:02 Urine Glucose (UA) NEGATIVE mg/dL (NEGATIVE) 01/11/23 13:02 Urine Ketones NEGATIVE mg/dL (NEGATIVE) 01/11/23 13:02 Urine Occult Blood NEGATIVE (NEGATIVE) 01/11/23 13:02 Urine Nitrite NEGATIVE (NEGATIVE) 01/11/23 13:02 Urine Bilirubin NEGATIVE (NEGATIVE) 01/11/23 13:02 Urine Urobilinogen 0.2 (NORMAL) E.U./dL (NORMAL) 01/11/23 13:02 Ur Leukocyte Esterase NEGATIVE (NEGATIVE) 01/11/23 13:02 Ur Microscopic Review NOT INDICATED 01/11/23 13:02 Urine Culture Comments NOT INDICATED 01/11/23 13:02 Nasal Adenovirus (PCR) NOT DETECTED 01/11/23 10:08 Nasal B. parapertussis DNA (PCR) NOT DETECTED 01/11/23 10:08 Nasal Coronavir 229E PCR NOT DETECTED 01/11/23 10:08 Nasal Coronavir HKU1 PCR NOT DETECTED 01/11/23 10:08 Nasal Coronavir NL63 PCR NOT DETECTED 01/11/23 10:08 Nasal Coronavir OC43 PCR NOT DETECTED 01/11/23 10:08 Nasal Enterovir/Rhinovir PCR NOT DETECTED 01/11/23 10:08 Nasal Influenza B PCR NOT DETECTED 01/11/23 10:08 Nasal Influenza A PCR NOT DETECTED 01/11/23 10:08 Nasal Parainfluen 1 PCR NOT DETECTED 01/11/23 10:08 Nasal Parainfluen 2 PCR NOT DETECTED 01/11/23 10:08 Nasal Parainfluen 3 PCR NOT DETECTED 01/11/23 10:08 Nasal Parainfluen 4 PCR NOT DETECTED 01/11/23 10:08 Nasal RSV (PCR) NOT DETECTED 01/11/23 10:08 Nasal Screen MRSA (PCR) NEGATIVE (NEGATIVE) 01/12/23 18:00 Nasal B.pertussis DNA PCR NOT DETECTED 01/11/23 10:08 Nasal C.pneumoniae (PCR) NOT DETECTED 01/11/23 10:08 Ariel Human Metapneumo PCR NOT DETECTED 01/11/23 10:08 Nasal M.pneumoniae (PCR) NOT DETECTED 01/11/23 10:08 Nasal SARS-CoV-2 (PCR) NOT DETECTED 01/11/23 10:08 Stl C. diff Tox B Gene NEGATIVE (NEGATIVE) 01/11/23 15:15 Sepsis Event Note (H) - Evaluation Current Stage of Sepsis: Ruled out ABX Reporting Has patient been on IV antibiotics over the past 48 hours?: No Current Medications - Current Medications Current Medications: Acetaminophen (Acetaminophen 325 Mg Tablet) 650 mg PO Q4HR PRN PRN Reason: Pain 1 to 4, or Fever Lipase/Protease/Amylase (Lipase/Protease/Amylase Capsule) 5 cap PO BID PRN PRN Reason: IF EATING SOLID FOODS Apixaban (Apixaban 5 Mg Tablet) 5 mg PO BID PRAVEENA Last Admin: 01/14/23 08:46 Dose: 5 mg Fat Emulsion Intravenous (Intralipid 20%) 250 mls @ 21 mls/hr IV 1900 PRAVEENA Last Infusion: 01/14/23 06:17 Dose: 0 mls/hr Piperacillin Sod/Tazobactam (Sod 3.375 gm/ Sodium Chloride) 100 mls @ 25 mls/hr IV Q8H PRAVEENA Last Infusion: 01/14/23 12:47 Dose: Infused Amino Acids/Electrolytes/Dextrose (Clinimix E 4.25%-5% Solution) 1,000 mls @ 83 mls/hr IV ONCE PRAVEENA; Protocol Stop: 01/14/23 19:03 Last Admin: 01/14/23 06:16 Dose: 83 mls/hr Multivitamins 10 ml/ TRACE ELEMENTS 1 ml/ Amino Acids/Electrolytes/Dextrose 2,011 mls @ 83 mls/hr IV 1900 PRAVEENA; Protocol Insulin Glargine-yfgn (Insulin Glargine-Yfgn 300 Unit/3 Ml Pen) 10 unit SUBQ QPM PRAVEENA Insulin Human Lispro (Insulin Lispro 300 Unit/3 Ml Pen) 2 - 10 unit SUBQ 0800,1200,1700,2100 PRAVEENA; Protocol Last Admin: 01/14/23 12:42 Dose: 4 unit Loperamide HCl (Loperamide 2 Mg Capsule) 2 mg PO QID PRN PRN Reason: Diarrhea Last Admin: 01/14/23 13:19 Dose: 2 mg Metoprolol Tartrate (Metoprolol 5 Mg/5 Ml Vial) 5 mg IVP Q6H PRN PRN Reason: afib w RVR Last Admin: 01/14/23 13:19 Dose: 5 mg Mineral Oil (Min Oil/Dimethicon/Coconut Oil 92 Gm Tube) 1 applic TOP PRN PRN PRN Reason: Skin Care Last Admin: 01/12/23 22:24 Dose: 1 applic Morphine Sulfate (Morphine 2 Mg/Ml Carpuject) 2 mg IVP Q2HR PRN PRN Reason: Severe Pain (Level 7-10) Last Admin: 01/13/23 05:15 Dose: 2 mg Ondansetron HCl (Ondansetron Odt 4 Mg Tablet) 4 mg TL Q6HR PRN PRN Reason: Nausea / Vomiting Ondansetron HCl (Ondansetron 4 Mg/2 Ml Vial) 4 mg IVP Q6HR PRN PRN Reason: Nausea / Vomiting Oxycodone HCl (Oxycodone 5 Mg Tablet) 5 mg PO Q4HR PRN PRN Reason: Pain 5 to 7 Last Admin: 01/13/23 22:42 Dose: 5 mg Sodium Chloride (Sodium Chloride Flush 0.9% 10 Ml Syringe) 10 ml IVP PRN PRN PRN Reason: NEEDED PER PROVIDER ORDERS Last Admin: 01/12/23 18:27 Dose: 30 ml Sodium Chloride (Sodium Chloride Flush 0.9% 10 Ml Syringe) 10 ml IVP 0100,0900,1700 PRAVEENA Last Admin: 01/14/23 08:50 Dose: 10 ml
[2023-01-16] MEDS: LIDOCAINE PATCH 5% TOP SCH (18:45)
[2023-01-16] MEDS: FAT EMULSION 20% 250 ML IV SCH (18:46)
[2023-01-16] MEDS: PPN (CLINIMIX E 4.25/5) 2,000 ML with MULTIVITAMIN 10 ML, TRACE ELEMENTS 1 ML IV SCH ×3 (18:46)
[2023-01-16] MEDS: INSULIN GLARGINE-YFGN 300 UNIT/3 ML PEN SUBQ SCH (20:53)
[2023-01-17 07:37] LABS: ALBUMIN 2.5 g/dL (3.2-5.5); ALBUMIN/GLOBULIN RATIO 1.1 (1.0-2.2); BILIRUBIN,TOTAL 0.4 mg/dL (0.2-1.0); CALCIUM 7.8 mg/dL (8.5-10.3); CREATININE 0.8 mg/dL (0.4-1.0); MAGNESIUM 1.7 mg/dL (1.7-2.8); PHOSPHORUS 3.5 mg/dL (2.5-4.6); POTASSIUM 4.6 mmol/L (3.5-5.0); TOTAL PROTEIN 4.8 g/dL (6.7-8.2)
[2023-01-17 07:38] LABS: CALCIUM, IONIZED 1.17 mmol/L (1.15-1.33); VBG PH 7.33 (7.31-7.41)
[2023-01-17] MEDS: SODIUM CHLORIDE FLUSH 0.9% 10 ML SYRINGE IVP SCH ×3 (07:38→17:13)
[2023-01-17] MEDS: INSULIN LISPRO 300 UNIT/3 ML PEN SUBQ SCH ×4 (08:53→21:37)
[2023-01-17] MEDS: APIXABAN 5 MG TABLET PO SCH ×2 (08:54→21:36)
[2023-01-17] MEDS: LOPERAMIDE 2 MG CAPSULE PO PRN ×2 (11:31→21:36)
--- NOTE | 2023-01-17 13:34 | CONSULTATION NOTE ---
Palliative Care Follow Up - Referral Referring Provider: Dr. Martha Goetz Time of Visit: Referral setting: Hospitalized patient Referral Reason: Goals of care/Diarrhea/Muscle Weakness/AMS - Information Sources Records reviewed: Previous records reviewed History/Review of Systems obtained from: Patient, Family ( Arnav and daughter Jasmin) Exam limitations: Clinical condition (patient with poor recall of last week) - History of Present Illness Update Brief HPI Update: This is a angel 72-year-old woman well-known to me through palliative care with metastatic pancreatic cancer with mets to the liver. She had just returned from [place], where she had a change in treatment plan was started on FOLFIRI, and had her first dose 12/28 it would be health. She had been responding to this treatment regimen with his decreasing CA9, when she had left in July she had progressive disease. She has though in the meantime had some functional decline, weight loss, but had done fairly well overall given her original diagnosis was in April 2021, with known liver mets. Her care has been somewhat complex in the context of managing with her underlying CHF, long-term atrial fibs, and diabetes. Unfortunately when she left [place] she was started on Cipro for UTI on 12/20, then shortly afterwards started her chemo on 12/28, was already having some diarrhea. This continued to worsen, is not responding well to Imodium, had added some Lomotil did receive fluids [place] [facility] [place], did rule out C. d ifficile, and also added tincture of opium and, unfortunately she had some negative response with some hallucinations with this. She did continue to worsen through the weekend, with weakness, further dehydration, and presented to the ED on 01/11.Her mental status continued to deteriorate with encephalopathy, came in with severe dehydration, hypokalemia of 2.3, acute renal failure, she has underlying CHF has not been problematic though she did have an elevated troponin. She was unable to meet her caloric or hydration needs, and was started on PPN.It was of concern she continued to be fairly nonresponsive, not recognizing this HEEL SEAT [employer]ANDER, daughter who came in on Tuesday states she may be was a little bit better, both and daughter reports she was about a third of the way back on Tuesday, and she is awake and alert and hungry right now. She does not recall anything that has happened to her. She did have a fall with the transfer on the weekend previous to her admit, and is having some back pain. She is to get a further MRI of her brain to evaluate her mental status though this is improving, as well as a CT scan to evaluate her back pain.Patient had just eaten, unfortunately was experience again some "dumping" and having an episode of diarrhea at the time of visit. She has been bed bound up to this point, secondary to weakness and altered mental status, they were going to a tra nsfer to the commode. Past Medical History: Atrial fib on Xarelto, history of basal cell carcinoma right arm, diabetes type 2, hyperlipidemia, hypertension, peripheral neuropathy, CHF, CKD, LBBB Social History - Living Situation Living arrangement: At home Living Situation: With spouse/s.o. Support System: Patient is to her angel Arnav, they are since 1977. They have a daughter and her family who is in [place], she splits her time between [place] and [place] be [place]. She has a grandson who is 2-year-old and expecting a second grandson in March. Her daughter is here until Tuesday. 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 Medications/Allergies - Medications Active Medication List: Active Medications Acetaminophen (Acetaminophen 325 Mg Tablet) 650 mg PO Q4HR PRN PRN Reason: Pain 1 to 4, or Fever Last Admin: 01/15/23 03:39 Dose: 650 mg Lipase/Protease/Amylase (Lipase/Protease/Amylase Capsule) 5 cap PO TIDWM [facility] Apixaban (Apixaban 5 Mg Tablet) 5 mg PO BID [facility] Last Admin: 01/17/23 08:54 Dose: 5 mg Heparin Sodium (Beef Lung) (Heparin Flush 50 Units/5 Ml Syringe) 30 - 50 unit IVP PRN PRN PRN Reason: Port Protocol (<24 hours) Fat Emulsion Intravenous (Intralipid 20%) 250 mls @ 21 mls/hr IV 1900 [facility] Stop: 01/17/23 18:59 Last Infusion: 01/17/23 07:39 Dose: Infused Multivitamins 10 ml/ TRACE ELEMENTS 1 ml/ Amino Acids/Electrolytes/Dextrose 2,011 mls @ 83 mls/hr IV 1900 [facility]; Protocol Stop: 01/17/23 18:59 Last Infusion: 01/16/23 22:02 Dose: 83 mls/hr Insulin Glargine-yfgn (Insulin Glargine-Yfgn 300 Unit/3 Ml Pen) 10 unit SUBQ QPM [facility] Last Admin: 01/16/23 20:53 Dose: 10 unit Insulin Human Lispro (Insulin Lispro 300 Unit/3 Ml Pen) 3 - 11 unit SUBQ 0800,1200,1700,2100 [facility]; Protocol Last Admin: 01/17/23 12:02 Dose: 5 unit Lidocaine (Lidocaine Patch 5%) 1 patch TOP 1900 [facility] Last Admin: 01/16/23 18:45 Dose: 1 patch Loperamide HCl (Loperamide 2 Mg Capsule) 2 mg PO QID PRN PRN Reason: Diarrhea Last Admin: 01/17/23 11:31 Dose: 2 mg Metoprolol Tartrate (Metoprolol 5 Mg/5 Ml Vial) 5 mg IVP Q6H PRN PRN Reason: afib w RVR Last Admin: 01/16/23 01:23 Dose: 5 mg Mineral Oil (Min Oil/Dimethicon/Coconut Oil 92 Gm Tube) 1 applic TOP PRN PRN PRN Reason: Skin Care Last Admin: 01/14/23 23:12 Dose: 1 applic Morphine Sulfate (Morphine 2 Mg/Ml Carpuject) 2 mg IVP Q2HR PRN PRN Reason: Severe Pain (Level 7-10) Last Admin: 01/13/23 05:15 Dose: 2 mg Ondansetron HCl (Ondansetron Odt 4 Mg Tablet) 4 mg TL Q6HR PRN PRN Reason: Nausea / Vomiting Ondansetron HCl (Ondansetron 4 Mg/2 Ml Vial) 4 mg IVP Q6HR PRN PRN Reason: Nausea / Vomiting Oxycodone HCl (Oxycodone 5 Mg Tablet) 5 mg PO Q4HR PRN PRN Reason: Pain 5 to 7 Last Admin: 01/13/23 22:42 Dose: 5 mg Sodium Chloride (Sodium Chloride Flush 0.9% 10 Ml Syringe) 10 ml IVP PRN PRN PRN Reason: NEEDED PER PROVIDER ORDERS Last Admin: 01/16/23 04:24 Dose: 30 ml Sodium Chloride (Sodium Chloride Flush 0.9% 10 Ml Syringe) 10 ml IVP 0100,0900,1700 [facility] Last Admin: 01/17/23 08:54 Dose: Not Given Lipase/Protease/Amylase [Yaronon Dr 24,000 Units Capsule] 1 - 4 cap PO BID MDD with meals/snacks 05/05/21 Cannabidiol (Cbd) [Epidiolex] 25 mg PO BID 05/12/21 Rivaroxaban [Xarelto] 20 mg PO DAILY 05/20/21 Glimepiride 4 mg PO BID 01/05/22 Insulin Glargine [Lantus Solostar] 10 unit SQ .CHEMO DAYS 01/26/22 Insulin Lispro [Humalog Kwikpen U-100] 2 - 10 units SQ .TITRATING 01/26/22 Sacubitril/Valsartan [Entresto 24 mg-26 mg Tablet] 1 each PO BID 04/27/22 Alpha Lipoic Acid 300 mg PO BID 12/17/22 activated charcoaL [Charcoal] 200 mg PO UD 12/17/22 Empagliflozin [Jardiance] 1 tab PO DAILY 01/11/23 Metoprolol Succinate [Toprol Xl] 3 tab PO DAILY 01/11/23 Opium Tincture 0.6 ml PO QID PRN 01/11/23 Spironolactone [Aldactone] 1 tab PO DAILY 01/11/23 - Allergies Allergies/Adverse Reactions: Allergies Allergy/AdvReac Type Severity Reaction Status Date / Time No Known Drug Allergies Allergy Verified 05/26/21 11:22 Review of Systems - Constitutional Constitutional: reports: Fatigue, Poor appetite, Weight loss - Eyes Eyes: reports: Vision loss, Corrective lenses - Ears, Nose & Throat Ears, Nose & Throat: reports: Dry mouth - Cardiovascular Cardiovascular: reports: Irregular heart rate, Exertional dyspnea, Decr. exercise tolerance - Respiratory Respiratory: reports: SOB with exertion. denies: SOB at rest - Gastrointestinal Gastrointestinal: reports: Diarrhea, Change in bowel habits (dumping with eating), Bloating, Poor appetite, Early satiety - Genitourinary Genitourinary: reports: Other (had urinary retention during hospitalization) - Musculoskeletal Musculoskeletal: reports: Back pain, Muscle weakness, Assistive devices (uses can), Transfer issues (has been bedbound since admit) - Integumentary Integumentary: reports: Rash (LE redness left; no defined area as in cellulits), Hair changes - Neurological Neurological: reports: General weakness, Numbness (baseline peripheral neuropathy in feet but has worsened), Memory problems - Psychiatric Psychiatric: reports: Anxiety - Endocrine Endocrine: reports: Diabetes type 2 (Is titrating currently on study) - Hematologic/Lymphatic Hematologic/Lymph: reports: Anemia (11.9 continues to decrease), Recurrent infections (recent UTI 12/20) Physical Exam - Vital Signs Vital Signs: Vital Signs x48h Temp Pulse Resp BP Pulse Ox 01/17/23 09:00 36.3 C L 89 20 104/60 99 01/17/23 05:09 36.4 C L 98 20 98/62 98 - Physical Exam General Appearance: positive: Alert, Cachetic Eyes Bilateral: positive: No scleral icterus, Other ENT: positive: Dry mucous membranes Neck: positive: Trachea midline Cardiovascular: positive: Irregular Respiratory: positive: No respiratory distress Abdomen: positive: Soft, Tenderness, Obese Skin: positive: Pallor, Dryness Extremities: positive: No pedal edema Neurologic/Psychiatric: positive: Weakness, Flat affect Palliative Care - POLST Patient has POLST: Yes POLST Status: DNR, Selective Treatment (filled in by wtih Dr. Cotter; needs to be revisited with patient) Pain: Location (new back pain from fall) Performance Status: Patient at baseline had been able to walk short distances with walker, using walker mostly for balance issues secondary lower extremity peripheral neuropathy. She does have a known ataxic gait. Unfortunately with the w orsening diarrhea had increased lower extremity weakness, needing more assistance, and now has been bedbound since hospitalization. - Palliative Care Discussion: Patient is much more alert and awake than previous week, had checked on her and Tuesday had not recognize HEEL SEAT SANDER, was able to engage, did discuss somewhat the changes that she had been experiencing, and the plan for MRI and CT scan. Unfortunately the implications of this are not yet known, the patient is quite weak. Did meet with and daughter while patient was on the commode. He counseling provided regarding the continuum of care, will have OT/PT provide recommendations around SNF for rehab. Discussed what this may look like, and daily therapy often moves people along quicker. Has been appropriately concerned about being able to manage her at home, was a difficult few days at home home as far as being able to do transfers and manage her diarrhea. Patient is quite independent and strong, often rejected assistance which resulted in the fall. We also discussed with 2 complex issues going on the acute issue as well as in the background her metastatic pancreatic cancer, patient has had a slow decline though has done very well with her treatment thus far. Unclear in the context of what would be next with that, weighing benefit and burden of treatment, particularly with patient's current declining state. Counseling also provided regarding the continuum of care of hospice at some point, particularly since needing to look at the big picture whether she wants to be in [place] or here on their home [place]. Patient does best with information, will await the results of MRI and CT scan, and see how she does over the next 24 hours. Reports they will not be available after Tuesday, will check in with patient and family for further long-term planning and see patient on my return Results - Lab Results Lab results reviewed: Yes Fish Bones: 01/15/23 04:00 01/17/23 07:05 Lab and Imaging Results: Lab Results x24hrs 01/17/23 01/17/23 01/17/23 Range/Units 11:20 07:52 07:05 VBG pH 7.330 (7.31-7.41) Ionized Calcium 1.17 (1.15-1.33) mmol/L Sodium (135-145) mmol/L Potassium (3.5-5.0) mmol/L Chloride (101-111) mmol/L Carbon Dioxide (21-32) mmol/L Anion Gap (6-13) BUN (6-20) mg/dL Creatinine (0.4-1.0) mg/dL Estimated GFR (MDRD) (>89) Glucose (70-100) mg/dL POC Whole Bld Glucose 183 H 211 H (70 - 100) mg/dL Calcium (8.5-10.3) mg/dL Phosphorus (2.5-4.6) mg/dL Magnesium (1.7-2.8) mg/dL Total Bilirubin (0.2-1.0) mg/dL AST (10-42) IU/L ALT (10-60) IU/L Alkaline Phosphatase (42-121) IU/L Total Protein (6.7-8.2) g/dL Albumin (3.2-5.5) g/dL Globulin (2.1-4.2) g/dL Albumin/Globulin Ratio (1.0-2.2) Prealbumin (18-45) mg/dL Triglycerides ( - 149) mg/dL 01/17/23 01/16/23 01/16/23 Range/Units 07:05 20:39 16:33 VBG pH (7.31-7.41) Ionized Calcium (1.15-1.33) mmol/L Sodium 134 L (135-145) mmol/L Potassium 4.6 (3.5-5.0) mmol/L Chloride 111 (101-111) mmol/L Carbon Dioxide 16 L (21-32) mmol/L Anion Gap 7.0 (6-13) BUN 50 H (6-20) mg/dL Creatinine 0.8 (0.4-1.0) mg/dL Estimated GFR (MDRD) 71 L (>89) Glucose 196 H (70-100) mg/dL POC Whole Bld Glucose 209 H 178 H (70 - 100) mg/dL Calcium 7.8 L (8.5-10.3) mg/dL Phosphorus 3.5 (2.5-4.6) mg/dL Magnesium 1.7 (1.7-2.8) mg/dL Total Bilirubin 0.4 (0.2-1.0) mg/dL AST 14 (10-42) IU/L ALT 23 (10-60) IU/L Alkaline Phosphatase 101 (42-121) IU/L Total Protein 4.8 L (6.7-8.2) g/dL Albumin 2.5 L (3.2-5.5) g/dL Globulin 2.3 (2.1-4.2) g/dL Albumin/Globulin Ratio 1.1 (1.0-2.2) Prealbumin 12 L (18-45) mg/dL Triglycerides 84 ( - 149) mg/dL Impression and Recommendations - Palliative Care Impression: This is a angel 72-year-old woman who unfortunately presents with acute complications related to her diarrhea, dehydration, with declining functional status, MIAN, and AMS. Patient does have underlying metastatic pancreatic cancer, and had been receiving treatment with palliative intent for her disease, balancing this with her comorbidities of CHF and atrial fibs. Palliative care has been providing support for symptom management, coordination of care and anticipatory guidance. Recommendations/Counseling Done: 1. Muscle weakness. Patient to receive PT/OT, will need patient to be more independent and ability to provide self-care. Counseling provided to daughter and regarding rehab in the SNF versus home health at home. Has been appropriately concerned regarding what the criteria is for patient transition or discharge. 2 AMS. Patient is doing much better as far as engaging, processing information. Does report she still feels "slow". She did have a CT scan without contrast, will have a follow-up MRI of the brain in the setting of patient's atrial fib and prolonged change in mental status. 3. Diarrhea. Unfortunately it looks like patient is still having issues with dumping, and ongoing diarrhea. We will be getting CT scan, had shown acute gastroenteritis process previously. Patient is receiving Imodium, may need more aggressive scheduled Imodium prior to meals. 4. Goals of care. Patient presents with functional decline, increased care needs, increased caregiver distress. Counseling provided regarding acute transition versus long-term continuum of care. does have a list of caregiving agencies, may need some assistance in making a both short and long- term plan.Patient as she clears, will be able to participate more in her goalsetting and end-of-life planning, will need to revisit the POLST. Plan to follow-up with patient after test done, tomorrow. 75 minutes with greater than 50% of this done in counseling regarding continuum of care, goals of care, coordination of care with hospitalist and anticipatory guidance.
--- NOTE | 2023-01-17 14:10 | PROVIDER PROGRESS NOTE ---
Subjective - Prog Note Date Prog Note Date: 01/17/23 - Subjective Pt reports feeling: Improved Subjective: Patient has progressed her diet slowly over the past few days and does note increasing loose bowel movements. Objective - Vital Signs/Intake & Output Vital Signs: Vital Signs x48h Temp Pulse Resp BP Pulse Ox 01/17/23 13:00 36.4 C L 105 H 20 109/64 99 01/17/23 09:00 36.3 C L 89 20 104/60 99 Intake & Output: Intake & Output 01/14/23 01/15/23 01/16/23 01/17/23 23:59 23:59 23:59 23:59 Intake Total 4806.183 2894.150 3666.500 301.4 Output Total 1400 0 Balance 3406.183 2894.150 3666.500 301.4 - Objective General Appearance: positive: No acute distress, Alert Neck: positive: Nml inspection Respiratory: positive: Chest non-tender, No respiratory distress Cardiovascular: positive: Regular rate & rhythm Abdomen: positive: Non-tender Skin: positive: Other (Patient does have some bruising on the left side of her back which she notes she had fallen at home) - Lab Results Fish Bones: 01/15/23 04:00 01/17/23 07:05 Other Labs: Lab Results x24hrs 01/17/23 01/17/23 01/17/23 Range/Units 11:20 07:52 07:05 VBG pH 7.330 (7.31-7.41) Ionized Calcium 1.17 (1.15-1.33) mmol/L Sodium (135-145) mmol/L Potassium (3.5-5.0) mmol/L Chloride (101-111) mmol/L Carbon Dioxide (21-32) mmol/L Anion Gap (6-13) BUN (6-20) mg/dL Creatinine (0.4-1.0) mg/dL Estimated GFR (MDRD) (>89) Glucose (70-100) mg/dL POC Whole Bld Glucose 183 H 211 H (70 - 100) mg/dL Calcium (8.5-10.3) mg/dL Phosphorus (2.5-4.6) mg/dL Magnesium (1.7-2.8) mg/dL Total Bilirubin (0.2-1.0) mg/dL AST (10-42) IU/L ALT (10-60) IU/L Alkaline Phosphatase (42-121) IU/L Total Protein (6.7-8.2) g/dL Albumin (3.2-5.5) g/dL Globulin (2.1-4.2) g/dL Albumin/Globulin Ratio (1.0-2.2) Prealbumin (18-45) mg/dL Triglycerides ( - 149) mg/dL 01/17/23 01/16/23 01/16/23 Range/Units 07:05 20:39 16:33 VBG pH (7.31-7.41) Ionized Calcium (1.15-1.33) mmol/L Sodium 134 L (135-145) mmol/L Potassium 4.6 (3.5-5.0) mmol/L Chloride 111 (101-111) mmol/L Carbon Dioxide 16 L (21-32) mmol/L Anion Gap 7.0 (6-13) BUN 50 H (6-20) mg/dL Creatinine 0.8 (0.4-1.0) mg/dL Estimated GFR (MDRD) 71 L (>89) Glucose 196 H (70-100) mg/dL POC Whole Bld Glucose 209 H 178 H (70 - 100) mg/dL Calcium 7.8 L (8.5-10.3) mg/dL Phosphorus 3.5 (2.5-4.6) mg/dL Magnesium 1.7 (1.7-2.8) mg/dL Total Bilirubin 0.4 (0.2-1.0) mg/dL AST 14 (10-42) IU/L ALT 23 (10-60) IU/L Alkaline Phosphatase 101 (42-121) IU/L Total Protein 4.8 L (6.7-8.2) g/dL Albumin 2.5 L (3.2-5.5) g/dL Globulin 2.3 (2.1-4.2) g/dL Albumin/Globulin Ratio 1.1 (1.0-2.2) Prealbumin 12 L (18-45) mg/dL Triglycerides 84 ( - 149) mg/dL ABX Reporting Has patient been on IV antibiotics over the past 48 hours?: No Sepsis Event Note (H) - Evaluation Current Stage of Sepsis: Ruled out Assessment/Plan - Problem List (1) Type 2 diabetes mellitus Qualifiers: Diabetes mellitus buttermaker insulin use: with jail use (2) Atrial fibrillation with RVR Impression: Patient has had history of rate controlled atrial fibrillation and is on anticoagulation. She is on metoprolol and Xarelto. Patient had 1 episode of RVR atrial fibrillation january 12 and was transferred to the unit but is controlled with IV pushes as needed meds metoprolol. Has been well controlled over the past several days. (3) Acute renal failure Impression: Currently markedly improved with a GFR of 70 Qualifiers: Acute renal failure type: unspecified Qualified Code(s): N17.9 - Acute kidney failure, unspecified (4) Dehydration Impression: Has been improving with increased p.o. intake (5) Diarrhea Impression: Will increase Creon to be scheduled with meals and monitor Qualifiers: Diarrhea type: unspecified type Qualified Code(s): R19.7 - Diarrhea, unspecified (6) Metabolic encephalopathy Impression: Improving (7) Pancreatic cancer Impression: Stage IV pancreatic cancer. Appreciate palliative care consult. Qualifiers: Pancreatic malignancy location: unspecified Qualified Code(s): C25.9 - Malignant neoplasm of pancreas, unspecified (8) MINA (acute kidney injury) Impression: Improved and GFR currently 71.
--- NOTE | 2023-01-17 15:24 | CT Report ---
PROCEDURE: CHEST WO INDICATIONS: bruise back TECHNIQUE: Noncontrast 1mm axial images were acquired from the pulmonary apices to the posterior costophrenic an gles. Axial 5 mm soft tissue kernel reconstructions were performed as well as 8 mm axial MIP and cor onal and sagittal 5 mm reformations. For radiation dose reduction, the following was used: automate d exposure control, adjustment of mA and/or kV according to patient size. COMPARISON: CT 01/11/2023 FINDINGS: Image quality: Excellent. Lungs and pleura: Mild smooth interstitial thickening and small degree of central groundglass. Modera te bilateral pleural effusions. No suspicious pulmonary nodules which require follow up. Mediastinum: Heart size is enlarged. No pericardial effusions. No mediastinal adenopathy by size crit eria. No large vessel abnormality. Left chest wall port tip terminates in the mid right atrium. Chest wall and lower neck: Stable 2 cm exophytic nodularity along the inferior pole of the left thyro id with enhancement matching the thyroid, probably indicating nodule. No axillary or supraclavicular adenopathy by size. Bones: No aggressive osseous abnormality. Upper Abdomen: Unremarkable. IMPRESSION: No displaced fracture or chronic subluxation of the spine. Moderate bilateral pleural effusions and mild pulmonary edema. Stable exophytic nodularity along the inferior pole of the left thyroid. This could be evaluated with ultrasound. Reviewed by: Jose Squires on 01/17/2023 3:22 PM PDT Approved by: Jose Squires on 01/17/2023 3:22 PM PDT Station ID: [id number]
[2023-01-17] MEDS: LIPASE/PROTEASE/AMYLASE CAPSULE PO SCH (17:13)
[2023-01-17] MEDS: LIDOCAINE PATCH 5% TOP SCH (19:38)
[2023-01-17] MEDS: INSULIN GLARGINE-YFGN 300 UNIT/3 ML PEN SUBQ SCH (21:36)
[2023-01-18] MEDS: SODIUM CHLORIDE FLUSH 0.9% 10 ML SYRINGE IVP SCH ×3 (00:33→17:03)
[2023-01-18 04:52] LABS: BASOPHILS # (AUTO) 0.1 10^3/uL (0.0-0.1); BASOPHILS % (AUTO) 0.8 %; EOSINOPHILS # (AUTO) 0.2 10^3/uL (0.0-0.7); EOSINOPHILS % (AUTO) 2.3 %; HCT - HEMATOCRIT 32.8 % (37.0-47.0); HGB - HEMOGLOBIN 10.3 g/dL (12.0-16.0); LYMPHOCYTES # (AUTO) 1.1 10^3/uL (1.5-3.5); LYMPHOCYTES % (AUTO) 12.1 %; MEAN CORPUSCULAR HEMOGLOBIN 33.3 pg (27.0-31.0); MEAN CORPUSCULAR HGB CONC 31.4 g/dL (32.0-36.0); MEAN CORPUSCULAR VOLUME 106.1 fL (81.0-99.0); MEAN PLATELET VOLUME 11.1 fL (7.9-10.8); MONOCYTES # (AUTO) 0.9 10^3/uL (0.0-1.0); MONOCYTES % (AUTO) 9.5 %; NEUTROPHILS # (AUTO) 6.5 10^3/uL (1.5-6.6); NEUTROPHILS % (AUTO) 71.4 %; NRBC ABSOLUTE COUNT (AUTO) 0.02 x10^3/uL; NUCLEATED RED BLOOD CELLS AUTO 0.2 /100WBC; PLT - PLATELET COUNT 164 10^3/uL (130-450); RED BLOOD COUNT 3.09 10^6/uL (4.20-5.40); RED CELL DISTRIBUTION WIDTH 16.7 % (12.0-15.0); WHITE BLOOD COUNT 9.1 x10^3/uL (4.8-10.8)
[2023-01-18] MEDS: LIPASE/PROTEASE/AMYLASE CAPSULE PO SCH ×3 (08:14→17:02)
[2023-01-18] MEDS: APIXABAN 5 MG TABLET PO SCH ×2 (08:15→21:44)
[2023-01-18] MEDS: INSULIN LISPRO 300 UNIT/3 ML PEN SUBQ SCH ×4 (09:16→21:45)
[2023-01-18 09:54] LABS: CALCIUM 7.7 mg/dL (8.5-10.3); CREATININE 0.8 mg/dL (0.4-1.0); POTASSIUM 3.7 mmol/L (3.5-5.0)
--- NOTE | 2023-01-18 10:05 | MRI Report ---
PROCEDURE: BRAIN WO INDICATIONS: altered mental status TECHNIQUE: Noncontrast axial T1 spin echo, axial T2 fast spin echo, sagittal and axial FLAIR, coronal T2 fast sp in echo, axial gradient echo, axial diffusion and ADC through the brain. COMPARISON: CT head dated 01/16/2023. FINDINGS: Image quality: Excellent. CSF Spaces: Basal cisterns are patent. No extra-axial fluid collections. Ventricles are normal in size and shape. Brain: No intracranial masses or hemorrhage. Busby/white matter interface is normal. Brainstem appe ars normal. Age-related volume loss and mild, age-appropriate small vessel ischemic change. Diffusio n-weighted images demonstrate no acute ischemic insult. No chronic ischemic insults. Normal intrava scular flow voids are present. Skull and face: Calvarium has normal marrow signal. Orbits appear normal. Sinuses: Sinuses and mastoids are clear. IMPRESSION: Negative brain MRI for patient age. No evidence of acute intracranial process. Reviewed by: Viral Talavera MD on 01/18/2023 10:04 AM PDT Approved by: Viral Talavera MD on 01/18/2023 10:04 AM PDT Station ID: [id number]
[2023-01-18 10:42] LABS: BASOPHILS # (AUTO) 0.1 10^3/uL (0.0-0.1); BASOPHILS % (AUTO) 0.7 %; EOSINOPHILS # (AUTO) 0.2 10^3/uL (0.0-0.7); EOSINOPHILS % (AUTO) 2.1 %; HCT - HEMATOCRIT 35.6 % (37.0-47.0); HGB - HEMOGLOBIN 11.3 g/dL (12.0-16.0); LYMPHOCYTES # (AUTO) 0.9 10^3/uL (1.5-3.5); LYMPHOCYTES % (AUTO) 7.9 %; MEAN CORPUSCULAR HEMOGLOBIN 33.2 pg (27.0-31.0); MEAN CORPUSCULAR HGB CONC 31.7 g/dL (32.0-36.0); MEAN CORPUSCULAR VOLUME 104.7 fL (81.0-99.0); MEAN PLATELET VOLUME 11.1 fL (7.9-10.8); MONOCYTES % (AUTO) 8.6 %; NEUTROPHILS # (AUTO) 8.6 10^3/uL (1.5-6.6); NEUTROPHILS % (AUTO) 76.9 %; PLT - PLATELET COUNT 181 10^3/uL (130-450); RED CELL DISTRIBUTION WIDTH 16.8 % (12.0-15.0); WHITE BLOOD COUNT 11.1 x10^3/uL (4.8-10.8)
--- NOTE | 2023-01-18 17:18 | PROVIDER PROGRESS NOTE ---
Assessment/Plan - Problem List (1) MINA (acute kidney injury) Assessment/Plan: This was due to fluid losses from diarrhea and inadequate po intake and is improving daily on IV fluids Labs were reviewed, her creatinine is now normal and BUN has improved Plan: Avoid nephrotoxins Follow BMP daily (2) Dehydration Impression: Has been improving with iv fluids and her increased p.o. intake (3) Congestive heart failure, chronic systolic 01/11: Her last Echo was performed in April 2022 which revealed an EF of 20-30%. She states that they gave her "a lot of diuretics" and she has lost about 80 pounds since then. She is currently taking spironolactone. Troponin around 1000 was 29, then at 1245 it was 25.6. Since it is trending down, this is most likely due to demand ischemia rather than an NSTEMI. I've thought about fluid restriction, but given her dehydration and hypotension, I'm holding off for now. 01/12: Patient is still showing signs of dehydration (dry mucous membranes and lethargy). 01/13: While she has cough, phlegm, and occasional rhonchi, I am not hearing crackles. She is not tachypneic. Nor does she have an oxygen requirement. She is saturating 100% on room air.She has soft blood pressures. Continues to show signs of dehydration. Dry oral mucosa. Her overall intake and output balance is +7819 cc as of 01/13. I do not think she has any evidence of acute heart failure at this time. Plan: Strict I&Os.Make sure we do not put her in a congestive heart failure. Daily BMPs. Cont to hold spironalactone. (4) Diarrhea Impression: This has been longstanding and goes up and down. We have increased Creon to be scheduled with meals Plan: We will monitor BMs Qualifiers: Diarrhea type: unspecified type Qualified Code(s): R19.7 - Diarrhea, unspecified (5) Hypokalemia Due to losses and diarrhea and inadequate p.o. intake Plan: We will replace p.o. and IV (6) Hypomagnesemia Due to losses and diarrhea and inadequate p.o. intake Plan: We will replace p.o. and IV (7) Atrial fibrillation Impression: Patient has had history of rate controlled atrial fibrillation and is on anticoagulation. She is on metoprolol and Xarelto. Patient had 1 episode of RVR atrial fibrillation january 12 and was transferred to the unit but is control led with IV pushes as needed meds metoprolol. Has been well controlled over the past several days. 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 She is still very weak however. Plan: PT and OT saw this patient and recommended SNF. Today the patient agreed to a SNF. We will await for SW to arrange for a SNF to accept (10) Pancreatic cancer Impression: Stage IV pancreatic cancer. She gets chemo every 2 weeks. Appreciate palliative care consult. Qualifiers: Pancreatic malignancy location: unspecified Qualified Code(s): C25.9 - Malignant neoplasm of pancreas, unspecified - Current Meds Current Meds: Current Medications Generic Name Dose Route Start Last Admin Trade Name Freq PRN Reason Stop Dose Admin Acetaminophen 650 mg 01/11/23 12:28 01/15/23 03:39 Acetaminophen 325 Mg Tablet PO 650 mg Q4HR PRN Administration Pain 1 to 4, or Fever Lipase/Protease/Amylase 5 cap 01/17/23 17:00 01/18/23 17:02 Lipase/Protease/Amylase Capsule PO 5 cap TIDWM PRAVEENA Administration Apixaban 5 mg 01/12/23 21:00 01/18/23 08:15 Apixaban 5 Mg Tablet PO 5 mg BID PRAVEENA Administration Insulin Glargine-yfgn 10 unit 01/14/23 21:00 01/17/23 21:36 Insulin Glargine-Yfgn 300 Unit/3 Ml Pen SUBQ 10 unit QPM PRAVEENA Administration Insulin Human Lispro 3 - 11 unit 01/15/23 08:00 01/18/23 17:02 Insulin Lispro 300 Unit/3 Ml Pen SUBQ 5 unit 0800,1200,1700,2100 PRAVEENA Administration Protocol Lidocaine 1 patch 01/16/23 19:00 01/17/23 19:38 Lidocaine Patch 5% TOP Not Given 1900 PRAVEENA Loperamide HCl 2 mg 01/11/23 15:37 01/17/23 21:36 Loperamide 2 Mg Capsule PO 2 mg QID PRN Administration Diarrhea Metoprolol Tartrate 5 mg 01/12/23 15:36 01/16/23 01:23 Metoprolol 5 Mg/5 Ml Vial IVP 5 mg Q6H PRN Administration afib w RVR Mineral Oil 1 applic 01/11/23 15:36 01/14/23 23:12 Min Oil/Dimethicon/Coconut Oil 92 Gm Tube TOP 1 applic PRN PRN Administration Skin Care Morphine Sulfate 2 mg 01/12/23 17:40 01/13/23 05:15 Morphine 2 Mg/Ml Carpuject IVP 2 mg Q2HR PRN Administration Severe Pain (Level 7-10) Oxycodone HCl 5 mg 01/11/23 12:28 01/13/23 22:42 Oxycodone 5 Mg Tablet PO 5 mg Q4HR PRN Administration Pain 5 to 7 Sodium Chloride 10 ml 01/11/23 12:28 01/16/23 04:24 Sodium Chloride Flush 0.9% 10 Ml Syringe IVP 30 ml PRN PRN Administration NEEDED PER PROVIDER ORDERS Sodium Chloride 10 ml 01/11/23 17:00 01/18/23 17:03 Sodium Chloride Flush 0.9% 10 Ml Syringe IVP 10 ml 0100,0900,1700 [facility] Administration - Lab Result Fish Bone Diagrams: 01/19/23 05:15 01/19/23 05:15 - Additional Planning My Orders: My Active Orders 01/19/23 05:00 BMP - BASIC METABOLIC PANEL [CHEM] DAILYLAB CBC - COMP BLD CT W/AUTO DIFF [HEME] DAILYLAB MAGNESIUM [CHEM] DAILYLAB Subjective - Subjective Patient Reports: Feeling Better Nursing Reports: Other (She is improving with PT and OT but still needs assistance even standing from seated position) Objective Vital Signs: Vital Signs - 24 hr 01/17/23 01/18/23 01/18/23 20:48 00:21 04:39 Temperature 36.5 C 36.0 C L 36.2 C L Heart Rate [ 65 72 92 Brachial] Respiratory 20 20 16 Rate Blood Pressure 101/60 92/65 84/53 L [Right Brachial artery] O2 Saturation 99 99 97 01/18/23 01/18/23 01/18/23 08:00 13:00 16:59 Temperature 36.5 C 36.6 C 36.3 C L Heart Rate [ 116 H 107 H 99 Brachial] Respiratory 18 16 16 Rate Blood Pressure 108/82 H 128/86 H 116/67 [Right Brachial artery] O2 Saturation 100 100 99 Oxygen O2 Source Room air I&O (Last 24 Hrs): Intake and Output Totals x24h 01/16/23 01/17/23 01/18/23 23:59 23:59 23:59 Intake Total 3666.500 2429.267 1040 Balance 3666.500 2429.267 1040 General: Alert, No acute distress HEENT: Mucous membr. moist/pink, Other (wearing head cover) Neck: Supple, No JVD Neuro: Alert, Non Focal, Other (generalized weakness) Cardiovascular: Regular rate Respiratory: No respiratory distress Abdomen: Soft Extremities: No clubbing, Other (trace edema) - Results Results: Laboratory Results WBC 11.1 x10^3/uL (4.8-10.8) H 01/18/23 10:30 RBC 3.40 10^6/uL (4.20-5.40) L 01/18/23 10:30 Hgb 11.3 g/dL (12.0-16.0) L 01/18/23 10:30 Hct 35.6 % (37.0-47.0) L 01/18/23 10:30 MCV 104.7 fL (81.0-99.0) H 01/18/23 10:30 MCH 33.2 pg (27.0-31.0) H 01/18/23 10:30 MCHC 31.7 g/dL (32.0-36.0) L 01/18/23 10:30 RDW 16.8 % (12.0-15.0) H 01/18/23 10:30 Plt Count 181 10^3/uL (130-450) 01/18/23 10:30 MPV 11.1 fL (7.9-10.8) H 01/18/23 10:30 Neut # (Auto) 8.6 10^3/uL (1.5-6.6) H 01/18/23 10:30 Lymph # (Auto) 0.9 10^3/uL (1.5-3.5) L 01/18/23 10:30 [place] # (Auto) 1.0 10^3/uL (0.0-1.0) 01/18/23 10:30 Eos # (Auto) 0.2 10^3/uL (0.0-0.7) 01/18/23 10:30 Baso # (Auto) 0.1 10^3/uL (0.0-0.1) 01/18/23 10:30 Absolute Nucleated RBC 0.00 x10^3/uL 01/18/23 10:30 Total Counted 100 01/15/23 04:00 Band Neuts % (Manual) 8 % (0-10) 01/15/23 04:00 Reactive Lymphs % (Man) 3 % 01/11/23 10:08 Abnorm Lymph % (Manual) 0 % 01/15/23 04:00 Myelocytes % 1 % (-0) H 01/15/23 04:00 Nucleated RBC % 0.0 /100WBC 01/18/23 10:30 Neutrophils # (Manual) 18.1 10^3/uL (1.5-6.6) H 01/15/23 04:00 Lymphocytes # (Manual) 1.4 10^3/uL (1.5-3.5) L 01/15/23 04:00 Monocytes # (Manual) 0.4 10^3/uL (0.0-1.0) 01/15/23 04:00 Eosinophils # (Manual) 0.2 10^3/uL (0-0.7) 01/15/23 04:00 Basophils # (Manual) 0.2 10^3/uL (0-0.1) H 01/15/23 04:00 Differential Comment MANUAL DIFFERENTIAL 01/15/23 04:00 Manual Slide Review Indicated 01/15/23 04:00 WBC Morphology NORMAL APPEARANCE (NORMAL) 01/15/23 04:00 Platelet Estimate NORMAL (130-450,000) (NORMAL) 01/15/23 04:00 Platelet Morphology NORMAL APPEARANCE (NORMAL) 01/15/23 04:00 RBC Morph Micro Appear 1+ ANISOCYTOSIS (NORMAL) 1+ MACROCYTOSIS (NORMAL) 2+ SANDRA CELLS (NORMAL) 1+ TEARDROP CELLS (NORMAL) 2+ POIKILOCYTOSIS (NORMAL) 01/15/23 04:00 RBC Morph Micro Appear 1+ ANISOCYTOSIS (NORMAL) 1+ MACROCYTOSIS (NORMAL) 2+ SANDRA CELLS (NORMAL) 1+ TEARDROP CELLS (NORMAL) 2+ POIKILOCYTOSIS (NORMAL) 01/15/23 04:00 RBC Morph Micro Appear 1+ ANISOCYTOSIS (NORMAL) 1+ MACROCYTOSIS (NORMAL) 2+ SANDRA CELLS (NORMAL) 1+ TEARDROP CELLS (NORMAL) 2+ POIKILOCYTOSIS (NORMAL) 01/15/23 04:00 RBC Morph Micro Appear 1+ ANISOCYTOSIS (NORMAL) 1+ MACROCYTOSIS (NORMAL) 2+ SANDRA CELLS (NORMAL) 1+ TEARDROP CELLS (NORMAL) 2+ POIKILOCYTOSIS (NORMAL) 01/15/23 04:00 RBC Morph Micro Appear 1+ ANISOCYTOSIS (NORMAL) 1+ MACROCYTOSIS (NORMAL) 2+ SANDRA CELLS (NORMAL) 1+ TEARDROP CELLS (NORMAL) 2+ POIKILOCYTOSIS (NORMAL) 01/15/23 04:00 PT 13.4 secs (9.9-12.6) H 01/11/23 10:08 INR 1.2 (0.8-1.2) 01/11/23 10:08 VBG pH 7.330 (7.31-7.41) 01/17/23 07:05 Ionized Calcium 1.17 mmol/L (1.15-1.33) 01/17/23 07:05 Sodium 137 mmol/L (135-145) 01/18/23 09:30 Potassium 3.7 mmol/L (3.5-5.0) 01/18/23 09:30 Chloride 113 mmol/L (101-111) H 01/18/23 09:30 Carbon Dioxide 18 mmol/L (21-32) L 01/18/23 09:30 Anion Gap 6.0 (6-13) 01/18/23 09:30 BUN 39 mg/dL (6-20) H 01/18/23 09:30 Creatinine 0.8 mg/dL (0.4-1.0) 01/18/23 09:30 Estimated GFR (MDRD) 71 (>89) L 01/18/23 09:30 Glucose 206 mg/dL (70-100) H 01/18/23 09:30 POC Whole Bld Glucose 182 mg/dL (70 - 100) H 01/18/23 16:42 Estimat Average Glucose 143 mg/dL (70-100) H 01/12/23 05:11 Hemoglobin A1c % 6.6 % (4.27-6.07) H 01/12/23 05:11 Lactic Acid 2.4 mmol/L (0.5-2.2) H 01/12/23 13:51 Calcium 7.7 mg/dL (8.5-10.3) L 01/18/23 09:30 Phosphorus 3.5 mg/dL (2.5-4.6) 01/17/23 07:05 Magnesium 1.5 mg/dL (1.7-2.8) L 01/18/23 09:30 Total Bilirubin 0.4 mg/dL (0.2-1.0) 01/17/23 07:05 AST 14 IU/L (10-42) 01/17/23 07:05 ALT 23 IU/L (10-60) 01/17/23 07:05 Alkaline Phosphatase 101 IU/L (42-121) 01/17/23 07:05 Total Creatine Kinase 43 IU/L (22-269) 01/11/23 10:08 Troponin I High Sens 45.8 ng/L (2.3-14.8) H* 01/12/23 17:20 Total Protein 4.8 g/dL (6.7-8.2) L 01/17/23 07:05 Albumin 2.5 g/dL (3.2-5.5) L 01/17/23 07:05 Globulin 2.3 g/dL (2.1-4.2) 01/17/23 07:05 Albumin/Globulin Ratio 1.1 (1.0-2.2) 01/17/23 07:05 Prealbumin 12 mg/dL (18-45) L 01/17/23 07:05 Triglycerides 84 mg/dL (-149) 01/17/23 07:05 Lipase 30 U/L (22-51) 01/11/23 10:08 TSH 1.00 uIU/mL (0.34-5.60) 01/11/23 10:08 Urine Color YELLOW 01/11/23 13:02 Urine Clarity CLEAR (CLEAR) 01/11/23 13:02 Urine pH 6.0 PH (5.0-7.5) 01/11/23 13:02 Ur Specific [place] 1.020 (1.002-1.030) 01/11/23 13:02 Urine Protein TRACE mg/dL (NEGATIVE) 01/11/23 13:02 Urine Glucose (UA) NEGATIVE mg/dL (NEGATIVE) 01/11/23 13:02 Urine Ketones NEGATIVE mg/dL (NEGATIVE) 01/11/23 13:02 Urine Occult Blood NEGATIVE (NEGATIVE) 01/11/23 13:02 Urine Nitrite NEGATIVE (NEGATIVE) 01/11/23 13:02 Urine Bilirubin NEGATIVE (NEGATIVE) 01/11/23 13:02 Urine Urobilinogen 0.2 (NORMAL) E.U./dL (NORMAL) 01/11/23 13:02 Ur Leukocyte Esterase NEGATIVE (NEGATIVE) 01/11/23 13:02 Ur Microscopic Review NOT INDICATED 01/11/23 13:02 Urine Culture Comments NOT INDICATED 01/11/23 13:02 Nasal Adenovirus (PCR) NOT DETECTED 01/11/23 10:08 Nasal B. parapertussis DNA (PCR) NOT DETECTED 01/11/23 10:08 Nasal Coronavir 229E PCR NOT DETECTED 01/11/23 10:08 Nasal Coronavir HKU1 PCR NOT DETECTED 01/11/23 10:08 Nasal Coronavir NL63 PCR NOT DETECTED 01/11/23 10:08 Nasal Coronavir OC43 PCR NOT DETECTED 01/11/23 10:08 Nasal Enterovir/Rhinovir PCR NOT DETECTED 01/11/23 10:08 Nasal Influenza B PCR NOT DETECTED 01/11/23 10:08 Nasal Influenza A PCR NOT DETECTED 01/11/23 10:08 Nasal Parainfluen 1 PCR NOT DETECTED 01/11/23 10:08 Nasal Parainfluen 2 PCR NOT DETECTED 01/11/23 10:08 Nasal Parainfluen 3 PCR NOT DETECTED 01/11/23 10:08 Nasal Parainfluen 4 PCR NOT DETECTED 01/11/23 10:08 Nasal RSV (PCR) NOT DETECTED 01/11/23 10:08 Nasal Screen MRSA (PCR) NEGATIVE (NEGATIVE) 01/12/23 18:00 Nasal B.pertussis DNA PCR NOT DETECTED 01/11/23 10:08 Nasal C.pneumoniae (PCR) NOT DETECTED 01/11/23 10:08 Ariel Human Metapneumo PCR NOT DETECTED 01/11/23 10:08 Nasal M.pneumoniae (PCR) NOT DETECTED 01/11/23 10:08 Nasal SARS-CoV-2 (PCR) NOT DETECTED 01/11/23 10:08 Stl C. diff Tox B Gene NEGATIVE (NEGATIVE) 01/11/23 15:15 Sepsis Event Note (H) - Evaluation Current Stage of Sepsis: Ruled out
[2023-01-18] MEDS: LIDOCAINE PATCH 5% TOP SCH (19:33)
[2023-01-18] MEDS: INSULIN GLARGINE-YFGN 300 UNIT/3 ML PEN SUBQ SCH (21:44)
[2023-01-19] MEDS: SODIUM CHLORIDE FLUSH 0.9% 10 ML SYRINGE IVP SCH ×3 (00:09→16:45)
[2023-01-19 05:33] LABS: BASOPHILS # (AUTO) 0.1 10^3/uL (0.0-0.1); BASOPHILS % (AUTO) 0.8 %; EOSINOPHILS # (AUTO) 0.2 10^3/uL (0.0-0.7); EOSINOPHILS % (AUTO) 2.7 %; HCT - HEMATOCRIT 31.9 % (37.0-47.0); HGB - HEMOGLOBIN 10.2 g/dL (12.0-16.0); LYMPHOCYTES # (AUTO) 0.9 10^3/uL (1.5-3.5); LYMPHOCYTES % (AUTO) 12.2 %; MEAN CORPUSCULAR HEMOGLOBIN 33.7 pg (27.0-31.0); MEAN CORPUSCULAR VOLUME 105.3 fL (81.0-99.0); MEAN PLATELET VOLUME 10.8 fL (7.9-10.8); MONOCYTES # (AUTO) 0.7 10^3/uL (0.0-1.0); MONOCYTES % (AUTO) 9.6 %; NEUTROPHILS # (AUTO) 5.6 10^3/uL (1.5-6.6); NEUTROPHILS % (AUTO) 72.6 %; PLT - PLATELET COUNT 176 10^3/uL (130-450); RED BLOOD COUNT 3.03 10^6/uL (4.20-5.40); WHITE BLOOD COUNT 7.7 x10^3/uL (4.8-10.8)
[2023-01-19 05:42] LABS: CALCIUM 7.5 mg/dL (8.5-10.3); CREATININE 0.7 mg/dL (0.4-1.0); MAGNESIUM 1.4 mg/dL (1.7-2.8); POTASSIUM 3.2 mmol/L (3.5-5.0)
[2023-01-19] MEDS: LIPASE/PROTEASE/AMYLASE CAPSULE PO SCH ×3 (08:44→16:59)
[2023-01-19] MEDS: APIXABAN 5 MG TABLET PO SCH ×2 (08:44→20:48)
[2023-01-19] MEDS: INSULIN LISPRO 300 UNIT/3 ML PEN SUBQ SCH ×4 (08:50→20:48)
[2023-01-19] MEDS ORDERED: MAGNESIUM SULFATE 2 GRAM 2 GM/50 ML BAG IV ONE (09:19)
[2023-01-19] MEDS ORDERED: POTASSIUM BICARB 25 MEQ TABLET PO ONE (09:19)
--- NOTE | 2023-01-19 18:59 | PROVIDER PROGRESS NOTE ---
Assessment/Plan - Problem List (1) MINA (acute kidney injury) Assessment/Plan: This was due to fluid losses from diarrhea and inadequate po intake and is improving daily on IV fluids Labs were reviewed, her creatinine is now normal and BUN has improved Plan: Avoid nephrotoxins Follow BMP daily Today I answered a long list of her questions as well and his who is at bedside: I recommend she use propel for electrolyte replacement and also kidney chicken broth. I advise she follow-up more closely with Cecile Escobar her PCP who would have told her not to use the spironolactone when she is having d iarrhea and becoming dehydrated and obtunded (2) Dehydration Impression: Has been improving with iv fluids and her increased p.o. intake (3) Congestive heart failure, chronic systolic 01/11: Her last Echo was performed in April 2022 which revealed an EF of 20-30%. She states that they gave her "a lot of diuretics" and she has lost about 80 pounds since then. She is currently taking spironolactone. Troponin around 1000 was 29, then at 1245 it was 25.6. Since it is trending down, this is most likely due to demand ischemia rather than an NSTEMI. I've thought about fluid restriction, but given her dehydration and hypotension, I'm holding off for now. 01/12: Patient is still showing signs of dehydration (dry mucous membranes and l ethargy). 01/13: While she has cough, phlegm, and occasional rhonchi, I am not hearing crackles. She is not tachypneic. Nor does she have an oxygen requirement. She is saturating 100% on room air.She has soft blood pressures. Continues to show signs of dehydration. Dry oral mucosa. Her overall intake and output balance is +7819 cc as of 01/13. I do not think she has any evidence of acute heart failure at this time. 01/19: Today she has tense 2+ leg edema up to mid shins Plan: Strict I&Os.Make sure we do not put her into pulm eema from congestive heart failure. Daily BMPs. Cont to hold spironalactone. (4) Diarrhea Impression: This has been longstanding and goes up and down. We have increased Creon to be scheduled with meals Plan: We will monitor BMs Today I recommended to her and the at bedside that she be referred to a Parts Puller, to manage what to do with excessive gas, longstanding chronic diarrhea and the Creon doses. She says nobody will take charge of ordering the Creon (not her oncologist, tag stringer or acid retort operator). Then she admitted she has not seen her PCP Cecile Escobar since coming back from [place]. We will ask our technical specialist cytology to help get the patient back into see her PCP RATNA Qualifiers: Diarrhea type: unspecified type Qualified Code(s): R19.7 - Diarrhea, unspecified (5) Hypokalemia CAused by losses in diarrhea and inadequate p.o. intake. I explained this to the patient today, at bedside Plan: We will replace p.o. and IV (6) Hypomagnesemia Due to losses in diarrhea and inadequate p.o. intake Plan: We will replace p.o. and IV (7) Atrial fibrillation Impression: Patient has had history of rate controlled atrial fibrillation and is on anticoagulation. She is on metoprolol and Xarelto. Patient had 1 episode of RVR atrial fibrillation january 12 and was transferred to the unit but is controlled with IV pushes as needed meds metoprolol. Has been well controlled over the past several days. Plan: Continue present med (8) Type 2 diabetes mellitus Qualifiers: Diabetes mellitus assisted insulin use: with assisted use Plan: Continue diabetic diet, sliding scale insulin coverage (9) Metabolic encephalopathy Impression: Her confusion has resolved. Her weakness is improving and she is participating with PT and OT Plan: PT and OT saw this patient and recommended SNF. SW is arrange for a SNF to accept her (10) Pancreatic cancer Impression: Stage IV pancreatic cancer. She gets chemo every 2 weeks. Appreciate palliative care consult. Qualifiers: Pancreatic malignancy location: unspecified Qualified Code(s): C25.9 - Malignant neoplasm of pancreas, unspecified - Current Meds Current Meds: Current Medications Generic Name Dose Route Start Last Admin Trade Name Freq PRN Reason Stop Dose Admin Acetaminophen 650 mg 01/11/23 12:28 01/15/23 03:39 Acetaminophen 325 Mg Tablet PO 650 mg Q4HR PRN Administration Pain 1 to 4, or Fever Lipase/Protease/Amylase 5 cap 01/17/23 17:00 01/19/23 16:59 Lipase/Protease/Amylase Capsule PO 5 cap TIDWM PRAVEENA Administration Apixaban 5 mg 01/12/23 21:00 01/19/23 08:44 Apixaban 5 Mg Tablet PO 5 mg BID PRAVEENA Administration Insulin Human Lispro 3 - 11 unit 01/15/23 08:00 01/19/23 16:59 Insulin Lispro 300 Unit/3 Ml Pen SUBQ 3 unit 0800,1200,1700,2100 [facility] Administration Protocol Lidocaine 1 patch 01/16/23 19:00 01/18/23 19:33 Lidocaine Patch 5% TOP Not Given 1900 [facility] Loperamide HCl 2 mg 01/11/23 15:37 01/17/23 21:36 Loperamide 2 Mg Capsule PO 2 mg QID PRN Administration Diarrhea Metoprolol Tartrate 5 mg 01/12/23 15:36 01/16/23 01:23 Metoprolol 5 Mg/5 Ml Vial IVP 5 mg Q6H PRN Administration afib w RVR Mineral Oil 1 applic 01/11/23 15:36 01/14/23 23:12 Min Oil/Dimethicon/Coconut Oil 92 Gm Tube TOP 1 applic PRN PRN Administration Skin Care Morphine Sulfate 2 mg 01/12/23 17:40 01/13/23 05:15 Morphine 2 Mg/Ml Carpuject IVP 2 mg Q2HR PRN Administration Severe Pain (Level 7-10) Oxycodone HCl 5 mg 01/11/23 12:28 01/13/23 22:42 Oxycodone 5 Mg Tablet PO 5 mg Q4HR PRN Administration Pain 5 to 7 Sodium Chloride 10 ml 01/11/23 12:28 01/16/23 04:24 Sodium Chloride Flush 0.9% 10 Ml Syringe IVP 30 ml PRN PRN Administration NEEDED PER PROVIDER ORDERS Sodium Chloride 10 ml 01/11/23 17:00 01/19/23 16:45 Sodium Chloride Flush 0.9% 10 Ml Syringe IVP 10 ml 0100,0900,1700 [facility] Administration - Lab Result Fish Bone Diagrams: 01/19/23 05:15 01/19/23 05:15 - Additional Planning My Orders: My Active Orders 01/19/23 11:09 IV DC [IV Discontinuation] [RC] .ONCE Objective Vital Signs: Vital Signs - 24 hr 01/18/23 01/19/23 01/19/23 20:15 00:08 05:40 Temperature 36.3 C L 36.4 C L 36.1 C L Heart Rate [ 94 82 112 H Brachial] Respiratory 16 20 20 Rate Blood Pressure 102/64 94/58 L 112/76 [Right Brachial artery] O2 Saturation 100 98 99 01/19/23 08:00 Temperature 36.6 C Heart Rate [ 99 Brachial] Respiratory 16 Rate Blood Pressure 112/75 [Right Brachial artery] O2 Saturation 100 Oxygen O2 Source Room air I&O (Last 24 Hrs): Intake and Output Totals x24h 01/17/23 01/18/23 01/19/23 23:59 23:59 23:59 Intake Total 2429.267 2067 1460 Balance 2429.267 7 1460 General: Alert, Oriented x3 HEENT: Mucous membr. moist/pink, Other (wearing a head cover) Neck: Supple, No JVD Neuro: Alert, Non Focal Cardiovascular: No murmurs, Other (irreg) Respiratory: No respiratory distress, Breath sounds nml Abdomen: Normal bowel sounds, Soft, No tenderness Extremities: No clubbing, Other (2+ tense edema to below the shins) - Results Results: Laboratory Results WBC 7.7 x10^3/uL (4.8-10.8) 01/19/23 05:15 RBC 3.03 10^6/uL (4.20-5.40) L 01/19/23 05:15 Hgb 10.2 g/dL (12.0-16.0) L 01/19/23 05:15 Hct 31.9 % (37.0-47.0) L 01/19/23 05:15 MCV 105.3 fL (81.0-99.0) H 01/19/23 05:15 MCH 33.7 pg (27.0-31.0) H 01/19/23 05:15 MCHC 32.0 g/dL (32.0-36.0) 01/19/23 05:15 RDW 17.0 % (12.0-15.0) H 01/19/23 05:15 Plt Count 176 10^3/uL (130-450) 01/19/23 05:15 MPV 10.8 fL (7.9-10.8) 01/19/23 05:15 Neut # (Auto) 5.6 10^3/uL (1.5-6.6) 01/19/23 05:15 Lymph # (Auto) 0.9 10^3/uL (1.5-3.5) L 01/19/23 05:15 [place] # (Auto) 0.7 10^3/uL (0.0-1.0) 01/19/23 05:15 Eos # (Auto) 0.2 10^3/uL (0.0-0.7) 01/19/23 05:15 Baso # (Auto) 0.1 10^3/uL (0.0-0.1) 01/19/23 05:15 Absolute Nucleated RBC 0.00 x10^3/uL 01/19/23 05:15 Total Counted 100 01/15/23 04:00 Band Neuts % (Manual) 8 % (0-10) 01/15/23 04:00 Reactive Lymphs % (Man) 3 % 01/11/23 10:08 Abnorm Lymph % (Manual) 0 % 01/15/23 04:00 Myelocytes % 1 % (-0) H 01/15/23 04:00 Nucleated RBC % 0.0 /100WBC 01/19/23 05:15 Neutrophils # (Manual) 18.1 10^3/uL (1.5-6.6) H 01/15/23 04:00 Lymphocytes # (Manual) 1.4 10^3/uL (1.5-3.5) L 01/15/23 04:00 Monocytes # (Manual) 0.4 10^3/uL (0.0-1.0) 01/15/23 04:00 Eosinophils # (Manual) 0.2 10^3/uL (0-0.7) 01/15/23 04:00 Basophils # (Manual) 0.2 10^3/uL (0-0.1) H 01/15/23 04:00 Differential Comment MANUAL DIFFERENTIAL 01/15/23 04:00 Manual Slide Review Indicated 01/15/23 04:00 WBC Morphology NORMAL APPEARANCE (NORMAL) 01/15/23 04:00 Platelet Estimate NORMAL (130-450,000) (NORMAL) 01/15/23 04:00 Platelet Morphology NORMAL APPEARANCE (NORMAL) 01/15/23 04:00 RBC Morph Micro Appear 1+ ANISOCYTOSIS (NORMAL) 1+ MACROCYTOSIS (NORMAL) 2+ SANDRA CELLS (NORMAL) 1+ TEARDROP CELLS (NORMAL) 2+ POIKILOCYTOSIS (NORMAL) 01/15/23 04:00 RBC Morph Micro Appear 1+ ANISOCYTOSIS (NORMAL) 1+ MACROCYTOSIS (NORMAL) 2+ SANDRA CELLS (NORMAL) 1+ TEARDROP CELLS (NORMAL) 2+ POIKILOCYTOSIS (NORMAL) 01/15/23 04:00 RBC Morph Micro Appear 1+ ANISOCYTOSIS (NORMAL) 1+ MACROCYTOSIS (NORMAL) 2+ SANDRA CELLS (NORMAL) 1+ TEARDROP CELLS (NORMAL) 2+ POIKILOCYTOSIS (NORMAL) 01/15/23 04:00 RBC Morph Micro Appear 1+ ANISOCYTOSIS (NORMAL) 1+ MACROCYTOSIS (NORMAL) 2+ SANDRA CELLS (NORMAL) 1+ TEARDROP CELLS (NORMAL) 2+ POIKILOCYTOSIS (NORMAL) 01/15/23 04:00 RBC Morph Micro Appear 1+ ANISOCYTOSIS (NORMAL) 1+ MACROCYTOSIS (NORMAL) 2+ SANDRA CELLS (NORMAL) 1+ TEARDROP CELLS (NORMAL) 2+ POIKILOCYTOSIS (NORMAL) 01/15/23 04:00 PT 13.4 secs (9.9-12.6) H 01/11/23 10:08 INR 1.2 (0.8-1.2) 01/11/23 10:08 VBG pH 7.330 (7.31-7.41) 01/17/23 07:05 Ionized Calcium 1.17 mmol/L (1.15-1.33) 01/17/23 07:05 Sodium 139 mmol/L (135-145) 01/19/23 05:15 Potassium 3.2 mmol/L (3.5-5.0) L 01/19/23 05:15 Chloride 115 mmol/L (101-111) H 01/19/23 05:15 Carbon Dioxide 18 mmol/L (21-32) L 01/19/23 05:15 Anion Gap 6.0 (6-13) 01/19/23 05:15 BUN 31 mg/dL (6-20) H 01/19/23 05:15 Creatinine 0.7 mg/dL (0.4-1.0) 01/19/23 05:15 Estimated GFR (MDRD) 82 (>89) L 01/19/23 05:15 Glucose 85 mg/dL (70-100) 01/19/23 05:15 POC Whole Bld Glucose 142 mg/dL (70 - 100) H 01/19/23 16:31 Estimat Average Glucose 143 mg/dL (70-100) H 01/12/23 05:11 Hemoglobin A1c % 6.6 % (4.27-6.07) H 01/12/23 05:11 Lactic Acid 2.4 mmol/L (0.5-2.2) H 01/12/23 13:51 Calcium 7.5 mg/dL (8.5-10.3) L 01/19/23 05:15 Phosphorus 3.5 mg/dL (2.5-4.6) 01/17/23 07:05 Magnesium 1.4 mg/dL (1.7-2.8) L 01/19/23 05:15 Total Bilirubin 0.4 mg/dL (0.2-1.0) 01/17/23 07:05 AST 14 IU/L (10-42) 01/17/23 07:05 ALT 23 IU/L (10-60) 01/17/23 07:05 Alkaline Phosphatase 101 IU/L (42-121) 01/17/23 07:05 Total Creatine Kinase 43 IU/L (22-269) 01/11/23 10:08 Troponin I High Sens 45.8 ng/L (2.3-14.8) H* 01/12/23 17:20 Total Protein 4.8 g/dL (6.7-8.2) L 01/17/23 07:05 Albumin 2.5 g/dL (3.2-5.5) L 01/17/23 07:05 Globulin 2.3 g/dL (2.1-4.2) 01/17/23 07:05 Albumin/Globulin Ratio 1.1 (1.0-2.2) 01/17/23 07:05 Prealbumin 12 mg/dL (18-45) L 01/17/23 07:05 Triglycerides 84 mg/dL (-149) 01/17/23 07:05 Lipase 30 U/L (22-51) 01/11/23 10:08 TSH 1.00 uIU/mL (0.34-5.60) 01/11/23 10:08 Urine Color YELLOW 01/11/23 13:02 Urine Clarity CLEAR (CLEAR) 01/11/23 13:02 Urine pH 6.0 PH (5.0-7.5) 01/11/23 13:02 Ur Specific [place] 1.020 (1.002-1.030) 01/11/23 13:02 Urine Protein TRACE mg/dL (NEGATIVE) 01/11/23 13:02 Urine Glucose (UA) NEGATIVE mg/dL (NEGATIVE) 01/11/23 13:02 Urine Ketones NEGATIVE mg/dL (NEGATIVE) 01/11/23 13:02 Urine Occult Blood NEGATIVE (NEGATIVE) 01/11/23 13:02 Urine Nitrite NEGATIVE (NEGATIVE) 01/11/23 13:02 Urine Bilirubin NEGATIVE (NEGATIVE) 01/11/23 13:02 Urine Urobilinogen 0.2 (NORMAL) E.U./dL (NORMAL) 01/11/23 13:02 Ur Leukocyte Esterase NEGATIVE (NEGATIVE) 01/11/23 13:02 Ur Microscopic Review NOT INDICATED 01/11/23 13:02 Urine Culture Comments NOT INDICATED 01/11/23 13:02 Nasal Adenovirus (PCR) NOT DETECTED 01/11/23 10:08 Nasal B. parapertussis DNA (PCR) NOT DETECTED 01/11/23 10:08 Nasal Coronavir 229E PCR NOT DETECTED 01/11/23 10:08 Nasal Coronavir HKU1 PCR NOT DETECTED 01/11/23 10:08 Nasal Coronavir NL63 PCR NOT DETECTED 01/11/23 10:08 Nasal Coronavir OC43 PCR NOT DETECTED 01/11/23 10:08 Nasal Enterovir/Rhinovir PCR NOT DETECTED 01/11/23 10:08 Nasal Influenza B PCR NOT DETECTED 01/11/23 10:08 Nasal Influenza A PCR NOT DETECTED 01/11/23 10:08 Nasal Parainfluen 1 PCR NOT DETECTED 01/11/23 10:08 Nasal Parainfluen 2 PCR NOT DETECTED 01/11/23 10:08 Nasal Parainfluen 3 PCR NOT DETECTED 01/11/23 10:08 Nasal Parainfluen 4 PCR NOT DETECTED 01/11/23 10:08 Nasal RSV (PCR) NOT DETECTED 01/11/23 10:08 Nasal Screen MRSA (PCR) NEGATIVE (NEGATIVE) 01/12/23 18:00 Nasal B.pertussis DNA PCR NOT DETECTED 01/11/23 10:08 Nasal C.pneumoniae (PCR) NOT DETECTED 01/11/23 10:08 Ariel Human Metapneumo PCR NOT DETECTED 01/11/23 10:08 Nasal M.pneumoniae (PCR) NOT DETECTED 01/11/23 10:08 Nasal SARS-CoV-2 (PCR) NOT DETECTED 01/11/23 10:08 Stl C. diff Tox B Gene NEGATIVE (NEGATIVE) 01/11/23 15:15 Sepsis Event Note (H) - Evaluation Current Stage of Sepsis: Ruled out
[2023-01-19] MEDS: LIDOCAINE PATCH 5% TOP SCH (19:18)
[2023-01-19] MEDS: LOPERAMIDE 2 MG CAPSULE PO PRN (20:58)
[2023-01-20] MEDS: SODIUM CHLORIDE FLUSH 0.9% 10 ML SYRINGE IVP SCH ×2 (01:05→08:11)
[2023-01-20] MEDS: LOPERAMIDE 2 MG CAPSULE PO PRN (05:54)
[2023-01-20 06:18] LABS: CALCIUM 7.4 mg/dL (8.5-10.3); CREATININE 0.7 mg/dL (0.4-1.0); MAGNESIUM 1.7 mg/dL (1.7-2.8); POTASSIUM 3.5 mmol/L (3.5-5.0)
[2023-01-20] MEDS: APIXABAN 5 MG TABLET PO SCH (08:11)
[2023-01-20] MEDS: LIPASE/PROTEASE/AMYLASE CAPSULE PO SCH (08:11)
[2023-01-20] MEDS: INSULIN LISPRO 300 UNIT/3 ML PEN SUBQ SCH (08:12)
--- NOTE | 2023-01-20 08:34 | Discharge Plan ---
"Discharge Plan for SNF / ROX - Discharge Plan And Transition Orders Problem Reviewed?: Yes Disposition: [address] [facility] DC/Xfer Condition: Stable Allergies and Adverse Reactions: Allergies Allergy/AdvReac Type Severity Reaction Status Date / Time No Known Drug Allergies Allergy Verified 05/26/21 11:22 Health Concerns: The patient presented with obtundation from uremia and had acute kidney injury, which was caused by chronic diarrhea, and inadequate oral intake while still taking her usual diuretics. The patient's mental status improved with IV hydration, and she needed aggressive management of hypotension in the ICU. She has had chronic diarrhea which comes and goes, for which she requires Creon; her dose was increased from BID to TID with meals. This patient has cancer and missed a chemotherapy course, which she gets every other week. She has DM, and is on sliding scale Insulin and Glimepiride (no long-acting Insulin or Jardiance to be used currently). Patient has become very deconditioned and needs further PT and OT rehab at SNF. Plan of Treatment: Daily PT and OT rehab. Continue with her medications. Because of her history of systolic heart failure, close follow-up of her daily weight and fluid status is needed. Care Goals: Improvement in symptoms and stabilization are the goals. Assessment: The patient understands and is agreeable with the plan. - SNF / ROX Transition Orders Admit to (Facility): [facility] Under the care of (Name): Cecile Escobar NP Discharge Diagnosis: (1) Metabolic encephalopathy (2) MINA (acute kidney injury) (3) Dehydration (4) Congestive heart failure, chronic systolic (5) Diarrhea (6) Hypokalemia (7) Hypomagnesemia (8) Atrial fibrillation (9) Type 2 diabetes mellitus (10) Pancreatic cancer Medicare Certification Statement: I certify that Post Hospital usp care is medically necessary on a continuing basis for any of the conditions for which she/he is receiving care during hospitalization. Notify PCP of admission and forward orders to primary provider for signature. Weight on admission and: Daily Call PCP immediately if weight increases by: 4 kg Other Notification Orders: Call PCP immediately if patient develops dyspnea, chest pain/tightness or edema. House Bowel Program: Yes Additional Bowel Program Orders: If no BM after 2 days, nurse may give M.O.M. 30ml PO PRN and/or ducolax Supp 1 CT and/or BOBBY 250mg P.O., and/or senna 1-2 tabs PO. On day 3 nurse may give repeat above order until residents constipation is resolved. Annual Influenza Vaccine (between May 06 and December 03): Yes Two-step PPD per [facility] [phone] or approved exception documents: Yes Treatments & Other Orders: Daily PT and OT rehab. OK to use Libre2 glucose result ac & hs, instead of fingerstick test ac & hs. Lab Tests or X-ray Orders: BMP and Magnesium level every Tuesday and Tuesday to adjust medication doses if needed. Medication Orders: PLEASE REFER TO THE DISCHARGE MEDICATION LIST. Insulin Orders?: Yes - Medications New Prescriptions: Lipase/Protease/Amylase [Lida Stover 3,000 Units Capsule] 1 each PO TIDWM #90 cap Glimepiride See Rx Instructions .ROUTE .COMPLEX #15 tab Insulin Lispro [Humalog Kwikpen U-100] 3 - 11 unit SUBQ 0800,1200,1700,2100 #1 ea Loperamide [Imodium] 2 mg PO QID PRN #20 cap PRN Reason: Diarrhea Lidocaine Patch 5% [Lidoderm Patch] 1 patch TOP 1900 PRN #15 patch PRN Reason: Pain 1-4 - Diet Type: Geriatric (Diabetic diet, low-salt diet) Texture: Regular Liquids: Thin - Therapies | Activity Therapy: Evaluation | Treat if indicated: PT, OT Rehabilitation Potential: Maximize functional status Activity: Activity as Tolerated Weight Bearing: Full Weight Assistance Devices: Walker Follow Up: See PCP Cecile Escobar NP in 1-2 weeks for a hospital follow-up visit. Insulin Orders - SNF Basal | Correction | Custom Orders: Diagnosis: Diabetes Initiate hypo and hyperglycemia protocols for BG <70 and BG >375. May check BG PRN for signs/symptoms of dysglycemia. Frequency of BG checks: [AC/HS] OK to use Libre2 glucose result ac & hs, instead of fingerstick test ac & hs. Basal Insulin: None Correction Insulin: - Select the type of insulin below [Choose: Novolog]100 units /ml insulin inject subq per orders indicate below [] LOW DOSE [] MODERATE DOSE [] MODERATE/HIGH DOSE [X] HIGH DOSE GB UNITS GB UNITS GB UNITS GB UNITS 61-140 0 UNITS 61-140 0 UNITS 61-140 0 UNITS 61-140 0 UNITS 141-175 1 UNITS 141-175 1 UNITS 141-175 2 UNITS 141-175 3 UNITS 176-225 2 UNITS 176-225 3 UNITS 176-225 4 UNITS 176-225 5 UNITS 226-275 3 UNITS 226-275 5 UNITS 226-275 6 UNITS 226-275 7 UNITS 276-325 4 UNITS 276-325 7 UNITS 276-325 8 UNITS 276-325 9 UNITS 326-375 5 UNITS 326-375 9 UNITS 326-375 10 UNITS 326-375 11 UNITS >375 CONTACT MD >375 CONTACT MD >375 CONTACT MD >375 CONTACT MD"
[2023-01-20] MEDS ORDERED: METOPROLOL SUCCINATE 25 MG TABLET PO SCH (09:00)
[2023-01-20] MEDS ORDERED: SPIRONOLACTONE 25 MG TABLET PO SCH (09:00)
[2023-01-20 09:19] VITALS: BP 106/68
--- NOTE | 2023-01-20 09:21 | DISCHARGE SUMMARY ---
Discharge Summary Admit Date: 01/11/23 Discharge Date: 01/20/23 Discharging Provider: Dr Kimberley Taveras Primary Care Provider: TATO Escobar Condition at Discharge: Stable Discharge Disposition: 03 DC/Xfer - HPI History of Present Illness: This patient is a 72 yo female with a history of pancreatic cancer with metastasis to the liver, HFrEF (EF 20-30%), hypertension, hypercholesterolemia, atrial fibrillation on anticoagulation, left bundle branch block, peripheral neuropathy secondary to chemotherapy, Type II diabetes mellitus, and skin cancer who presents to the ED with complaints of generalized weakness for the past 7-10 days. She was on abraxane and gencitabine from 2020 to Jul 2022 with minimal tumor response, and then she was changed to FOLFIRI which reduced tumor antigens and decreased mass size. She states that she has had generalized weakness for awhile since starting chemotherapy, but it has gotten worse to the point where she needed to use a walker 10 days ago, and then using a wheelchair 5 days ago. She was using the wheelchair to go from the bed to the bathroom, and then was sleeping most of the days. She has almost no feeling left in her feet, so this also makes it harder to get around. She was also treated for a UTI with Cipro from 12/20 to 12/27, during and after which she was having profound diarrhea that resolved about four days ago. She states that she's lost weight over the last few weeks, especially since she has had "no appetite" since the diarrhea started. 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 She most likely has a chronic irritable bowel or chronic microscopic colitis by description. She has lifelong diarrhea. Waxes and wanes. Worsens with the treatment of Cipro and then the FOLFIRI. Both 5-FU and iretotecan cause diarrhea. It finally got the best of her and she has become dehydrated, hypokalemic, with renal failure (prerenal azotemia). We will hydrate her, Supp lement potassium, magnesium as needed, but watch her intake and output carefully because of her history of systolic heart failure. We are holding her medications for diabetes and giving her only sliding scale insulin. It should be noted that on her CT scan of chest abdomen pelvis she has dilated loops of small and large bowel that are fluid-filled indicating gastroenteritis. We will check for C. difficile colitis. 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 Elevated white cell count of 18.4 noted. At this time I am associating this with her enteritis seen on CT. If she spikes a temperature will need empiric Zosyn. Urinalysis is clean. Chest x-ray does not show infection. - HOSPITAL COURSE Hospital Course: (1) Metabolic encephalopathy (2) MINA (acute kidney injury) (3) Dehydration (4) Congestive heart failure, chronic systolic (5) Diarrhea (6) Hypokalemia (7) Hypomagnesemia (8) Atrial fibrillation (9) Type 2 diabetes mellitus (10) Pancreatic cancer The patient presented with obtundation from uremia and had acute kidney injury, which was caused by chronic diarrhea, and inadequate oral intake while still taking her usual diuretics. The patient's mental status improved with IV hydration, and she needed aggressive management of hypotension in the ICU. She has had chronic diarrhea which comes and goes, for which she requires Creon; her dose was increased from BID to TID with meals. This patient has cancer and missed a chemotherapy course while here, which she gets every other week. She has DM, and is on sliding scale Insulin and Glimepiride (no long-acting Insulin or Jardiance to be used currently). Patient has become very deconditioned and needs further PT and OT rehab at [facility]. Because of her history of systolic heart failure, close follow-up of her daily weight and fluid status is needed. - ALLERGIES Allergies/Adverse Reactions: Allergies Allergy/AdvReac Type Severity Reaction Status Date / Time No Known Drug Allergies Allergy Verified 05/26/21 11:22 - MEDICATIONS Home Medications: Ambulatory Orders Medication Instructions Recorded Confirmed Lipase/Protease/Amylase [Lida Stover 1 - 4 cap PO BID MDD with 05/05/21 01/11/23 24,000 Unit Capsule] meals/snacks Rivaroxaban [Xarelto] 20 mg PO DAILY 05/20/21 01/11/23 Insulin Glargine [Lantus Solostar] 10 unit SQ .CHEMO DAYS 01/26/22 01/11/23 Insulin Lispro [Humalog Kwikpen 2 - 10 units SQ .TITRATING 01/26/22 01/11/23 U-100] Sacubitril/Valsartan [Entresto 24 1 each PO BID 04/27/22 01/11/23 mg-26 mg Tablet] Alpha Lipoic Acid 300 mg PO BID 12/17/22 01/11/23 Metoprolol Succinate [Toprol Xl] 3 tab PO DAILY 01/11/23 01/11/23 Opium Tincture 0.6 ml PO QID PRN 01/11/23 01/11/23 Spironolactone [Aldactone] 1 tab PO DAILY 01/11/23 01/11/23 Glimepiride See Rx Instructions .ROUTE 01/20/23 .COMPLEX #15 tab Insulin Lispro [Humalog Kwikpen 3 - 11 unit SUBQ 01/20/23 U-100] 0800,1200,1700,2100 #1 ea Lidocaine Patch 5% [Lidoderm Patch] 1 patch TOP 1900 PRN #15 patch 01/20/23 Lipase/Protease/Amylase [Creon Dr 1 each PO TIDWM #90 cap 01/20/23 3,000 Units Capsule] Loperamide [Imodium] 2 mg PO QID PRN #20 cap 01/20/23 - PHYSICAL EXAM AT DISCHARGE General Appearance: positive: No acute distress, Alert Eyes Bilateral: positive: Normal inspection, No lid inflammation ENT: positive: No signs of dehydration, Other (Wearing a head cover) Neck: positive: Nml inspection, No JVD Respiratory: positive: No respiratory distress, Breath sounds nml Cardiovascular: positive: Regular rate & rhythm, No murmur Abdomen: positive: Non-tender, Nml bowel sounds, No distention Skin: positive: Warm, Dry Extremities: positive: Non-tender, No pedal edema Neurologic/Psychiatric: positive: Oriented x3, Motor nml - LABS Result Diagrams: 01/19/23 05:15 01/20/23 05:50 - DIAGNOSTIC IMAGING Diagnostic Imaging Results: Final report reviewed - SEPSIS Current Stage of Sepsis: Ruled out - FOLLOW UP Follow Up: See PCP after discharge from SNF. - TIME SPENT Time Spent in Discharge (Minutes): 45
== END 2023-01-20 12:22 | DRG 682 ==
LOC: EDUNIT# → ED 09:33 → MS2 12:28 → ICU 01-12 17:21 → MS2 01-15 17:59
PROVIDERS: ADMIT Specialist; ATTEND Internal Medicine
DX: N17.9 Acute kidney failure, unspecified (principal); R77.8 Other specified abnormalities of plasma proteins; I10 Essential (primary) hypertension; G93.41 Metabolic encephalopathy; C25.9 Malignant neoplasm of pancreas, unspecified; C78.7 Secondary malignant neoplasm of liver and intrahepatic bile duct; R57.9 Shock, unspecified; I44.7 Left bundle-branch block, unspecified; R00.0 Tachycardia, unspecified; I50.22 Chronic systolic (congestive) heart failure; I11.0 Hypertensive heart disease with heart failure; Z20.822 Contact with and (suspected) exposure to COVID-19; E78.00 Pure hypercholesterolemia, unspecified; I48.91 Unspecified atrial fibrillation; Z79.01 Long term (current) use of anticoagulants; Z92.21 Personal history of antineoplastic chemotherapy; G62.0 Drug-induced polyneuropathy; T45.1X5A Adverse effect of antineoplastic and immunosuppressive drugs, initial encounter; E11.9 Type 2 diabetes mellitus without complications; K52.9 Noninfective gastroenteritis and colitis, unspecified; E86.0 Dehydration; E87.6 Hypokalemia; Z79.4 Long term (current) use of insulin; E83.42 Hypomagnesemia; Z87.891 Personal history of nicotine dependence; H54.7 Unspecified visual loss; Z79.899 Other long term (current) drug therapy; R21 Rash and other nonspecific skin eruption; C44.91 Basal cell carcinoma of skin, unspecified; D64.9 Anemia, unspecified; Z66 Do not resuscitate; M62.81 Muscle weakness (generalized); I95.9 Hypotension, unspecified
CPT/HCPCS: 36415; 70450; 70551; 71250; 74176; 80048; 80053; 81003; 82330; 82550; 83036; 83605; 83690; 83735; 84100; 84132; 84134; 84443; 84478; 84484; 85025; 85610; 87040; 87150; 87493; 87633; 92610; 93005; 96361; 96365; 97162; 97166; 97530; 97535; 99285; 99291; A6250; A9270; J1815; J3490; J7120; 81001; 87086

== ENCOUNTER 2023-01-24 14:30 | Outpatient (CLI) | payer MEDICARE, OTHER | END 2023-01-24 14:31 | disposition home or self-care (01) | LOC: LAB.R 14:30 | PROVIDERS: ATTEND Registered Nurse | DX: R19.7 Diarrhea, unspecified (principal) | CPT/HCPCS: 87493 ==